=== PATIENT | female | born 1930 | race African-American/Black ===

== ENCOUNTER 2016-08-15 06:36 | Inpatient (IN) | payer MEDICARE, MEDICAID ==
[~2016-08-15] VITALS: Ht 167.6 cm; Wt 102.1 kg
[2016-08-15] VITALS (7 sets, daily range): BP systolic 158–183; BP diastolic 85–108
[~2016-08-15 06:36] MED LIST: BACTRIM-DS1 EA ORAL; CATAPRES0.1 MG ORAL; CEPHALEXIN500 MG ORAL; CIPROFLOXACIN500 M2 ORAL; CORGARD40 MG ORAL; DOXYCYCLINE MO100 MG ORAL; DULCOLAX10 MG RC; ECOTRIN81 MG ORAL; FERROUS SULFAT325 MG ORAL; FLEET ENEMA133 ML RECTAL; GENTAMICIN IM; HYDRALAZINE HCL25 M1 ORAL; HYDRALAZINE HCL50 MG ORAL; HYDROCHLOROTH12.5 M2 ORAL; LEVAQUIN500 MG ORAL; LEVEMIR FL100 UNIT/1 SUBQ; MILK OF MA2400 MG/10 ORAL; MIRALAX17 GM ORAL; NORVASC5 MG ORAL; NOVOLOG100 UNITS1 SUBQ; ROCEPHIN 11 GM/50 ML IVPB; TYLENOL650 MG/20. ORAL; VANCOMYCIN750 MG IVPB
[2016-08-15 07:34] LABS: ALANINE AMINOTRANSFERASE 7 U/L (3-33); ALBUMIN/GLOBULIN RATIO 0.6 (1.0-2.7); ANION GAP 14 (5-15); ASPARTATE AMINO TRANSFERASE 12 U/L (5-40); CALCIUM 8.9 mg/dL (8.6-10.2); CARBON DIOXIDE 30 mEQ/L (20-30); CHLORIDE 93 mEQ/L (98-107); CREATININE 0.9 mg/dL (0.5-0.9); HEMOLYSIS 0; POTASSIUM 2.9 mEQ/L (3.4-4.9); SODIUM 137 mEQ/L (135-145); TOTAL PROTEIN 8.7 g/dL (6.6-8.7); TROPONIN I < 0.30 ng/mL (<=0.30)
[2016-08-15 07:40] LABS: BASOPHILS % (AUTO) 0.6 % (0.0-2.0); LYMPHOCYTES % (AUTO) 18.8 % (20.0-45.0); MEAN CORPUSCULAR HEMOGLOBIN 24.5 PG (27.0-31.0); MEAN CORPUSCULAR HGB CONC 30.3 G/DL (32.0-36.0); MEAN CORPUSCULAR VOLUME 81 FL (80-99); MEAN PLATELET VOLUME 5.7 FL (6.5-10.1); MONOCYTES % (AUTO) 7.3 % (1.0-10.0); NEUTROPHILS % (AUTO) 72.2 % (45.0-75.0); PLATELET COUNT 337 K/UL (150-450); RED BLOOD COUNT 4.93 M/UL (4.20-5.40); RED CELL DISTRIBUTION WIDTH 16.1 % (11.6-14.8); WHITE BLOOD COUNT 7.7 K/UL (4.8-10.8)
[2016-08-15 07:45] LABS: CKMB < 1.5 ng/mL (< 3.8)
[2016-08-15 07:46] LABS: APPEARANCE,URINE SLIGHTLY CLOUDY; KETONES,URINE 1+ (NEGATIVE); LEUKOCYTE ESTERASE ,URINE 3+ (NEGATIVE); NITRITE,URINE NEGATIVE (NEGATIVE); PH,URINE 6 (4.5-8.0); PROTEIN,URINE 2+ (NEGATIVE); UROBILINOGEN,URINE 1 MG/DL (0.0-1.0)
[2016-08-15 08:15] LABS: BACTERIA,URINE MANY /HPF; SQUAMOUS EPITHELIAL CELL,UR MANY /LPF (NONE/OCC); WBC,URINE TNTC /HPF (0 - 2)
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
[2016-08-15] MEDS ORDERED: cefTRIAXone 1 GM in NS 55 ML IVPB ONE (09:30)
[2016-08-15] MEDS ORDERED: cefTRIAXone 1 GM in NS 110 ML IVPB SCH (10:00)
--- NOTE | 2016-08-15 10:17 | Emergency Room Report ---
History of Present Illness General Chief Complaint: Edema Source: Patient Present Illness HPI Patient is a 86-year-old female brought in by ambulance from [facility]. The patient was noted to have increased right-sided facial swelling. The patient was noted to have been in a [facility]. History is markedly limited by patient's mental status. Patient had gradual onset of symptoms per [facility] records. Allergies: Coded Allergies: No Known Allergies (Unverified , 04/03/13) Patient History Now: No Reviewed Nursing Documentation: PMH: Agreed, PSxH: Agreed Nursing Documentation-PMH Hx Cardiac Problems: Yes - HF, anemia, cerebral neurysm Hx Hypertension: Yes - Hemiplegia, Hemiparesis Hx Asthma: No Hx COPD: No Hx Diabetes: Yes Hx Cancer: No Hx Gastrointestinal Problems: No Hx Dialysis: No History Of Psychiatric Problem: Yes - dementia Hx Neurological Problems: Yes Hx Cerebrovascular Accident: Yes Hx Dementia: Yes Hx Parkinson's Disease: No Hx Seizures: No Hx Spinal Cord Injury: No Hx Head Trauma: No Hx Traumatic Brain Injury: No Hx Weakness: Yes - BLE Hx Fatigue: Yes Hx Neurologic Surgery: Yes - s/p brain surgery (aneurysm) Review of Systems All Other Systems: limited - by mental status Physical Exam Vital Signs Date Time Temp Pulse Resp B/P Pulse Ox O2 Delivery O2 Flow Rate FiO2 08/15/16 06:37 101 18 160/81 98 Room Air 08/15/16 07:13 98.4 Sp02 EP Interpretation: reviewed, normal General Appearance: no apparent distress, alert, mild distress, other - poor alertness, Eyes open, verbal Head: atraumatic ENT: hearing grossly normal, normal voice, other - soft tissue swelling to right cheek area Neck: normal inspection, full range of motion, supple, no bony tend Respiratory: normal inspection, lungs clear, normal breath sounds, no respiratory distress, no retraction, no wheezing Cardiovascular #1: regular rate, rhythm, no edema Gastrointestinal: normal inspection, normal bowel sounds, non tender, soft, no guarding, no hernia Genitourinary: no CVA tenderness Musculoskeletal: normal inspection, back normal, normal range of motion Neurologic: normal inspection, alert, responsive Psychiatric: mood/affect normal Skin: normal inspection, normal color, no rash Medical Decision Making Diagnostic Impression: Primary Impression: UTI (urinary tract infection) Additional Impressions: Dental infection ams QT prolongation ER Course Patient is a 86-year-old female presented after increased generalized weakness and facial swelling. Differential diagnosis included was not limited to abscess , sepsis, cellulitis, and others.Because of complexity of patient's case laboratory testing and imaging studies were ordered. CT imaging of the facial bones read by radiology showed soft tissue swelling near the right upper molars without evident abscess. Patient was given IV fluids and IV antibiotics. The patient was noted to have evidence of a urinary tract infection on laboratory testing. Dr. Carias was contacted for inpatient management due to complexity of medical condition. Labs Test 08/15/16 07:05 08/15/16 07:25 White Blood Count 7.7 K/UL (4.8-10.8) Red Blood Count 4.93 M/UL (4.20-5.40) Hemoglobin 12.1 G/DL (12.0-16.0) Hematocrit 39.9 % (37.0-47.0) Mean Corpuscular Volume 81 FL (80-99) Mean Corpuscular Hemoglobin 24.5 PG (27.0-31.0) Mean Corpuscular Hemoglobin Concent 30.3 G/DL (32.0-36.0) Red Cell Distribution Width 16.1 % (11.6-14.8) Platelet Count 337 K/UL (150-450) Mean Platelet Volume 5.7 FL (6.5-10.1) Neutrophils (%) (Auto) 72.2 % (45.0-75.0) Lymphocytes (%) (Auto) 18.8 % (20.0-45.0) Monocytes (%) (Auto) 7.3 % (1.0-10.0) Eosinophils (%) (Auto) 1.0 % (0.0-3.0) Basophils (%) (Auto) 0.6 % (0.0-2.0) Sodium Level 137 mEQ/L (135-145) Potassium Level 2.9 mEQ/L (3.4-4.9) Chloride Level 93 mEQ/L (98-107) Carbon Dioxide Level 30 mEQ/L (20-30) Anion Gap 14 (5-15) Blood Urea Nitrogen 11 mg/dL (7-23) Creatinine 0.9 mg/dL (0.5-0.9) Estimat Glomerular Filtration Rate mL/min (>60) Glucose Level 147 mg/dL (74-106) Lactic Acid Level 0.70 mmol/L (0.66-2.22) Calcium Level 8.9 mg/dL (8.6-10.2) Total Bilirubin 0.3 mg/dL (0.0-1.2) Aspartate Amino Transf (AST/SGOT) 12 U/L (5-40) Alanine Aminotransferase (ALT/SGPT) 7 U/L (3-33) Alkaline Phosphatase 91 U/L (35-104) Total Creatine Kinase 91 U/L (26-140) Creatine Kinase MB < 1.5 ng/mL (< 3.8) Creatine Kinase MB Relative Index Troponin I < 0.30 ng/mL (<=0.30) Pro-B-Type Natriuretic Peptide 51 pg/mL (0-450) Total Protein 8.7 g/dL (6.6-8.7) Albumin 3.3 g/dL (3.5-5.2) Globulin 5.4 g/dL Albumin/Globulin Ratio 0.6 (1.0-2.7) Urine Color Yellow Urine Appearance Slightly cloudy Urine pH 6 (4.5-8.0) Urine Specific [place] 1.020 (1.005-1.035) Urine Protein 2+ (NEGATIVE) Urine Glucose (UA) Negative (NEGATIVE) Urine Ketones 1+ (NEGATIVE) Urine Occult Blood 2+ (NEGATIVE) Urine Nitrite Negative (NEGATIVE) Urine Bilirubin Negative (NEGATIVE) Urine Urobilinogen 1 MG/DL (0.0-1.0) Urine Leukocyte Esterase 3+ (NEGATIVE) Urine RBC 5-10 /HPF (0 - 2) Urine WBC Tntc /HPF (0 - 2) Urine Squamous Epithelial Cells Many /LPF (NONE/OCC) Urine Bacteria Many /HPF (NONE) EKG Diagnostic Results Rate: tachycardiac - 101 Rhythm: NSR, other - qt prolongation ST Segments: no acute changes Chest X-Ray Diagnostic Results EP Interpretation: Yes Findings: no consolidation, no effusion, no pneumothorax, no acute cardiopulmonary disease Number of Views: 1 Last Vital Signs Date Time Temp Pulse Resp B/P Pulse Ox O2 Delivery O2 Flow Rate FiO2 08/15/16 10:10 95 18 171/85 99 Room Air 08/15/16 07:13 98.4 Status: unchanged Disposition: ADMITTED INPATIENT Referrals: EMMA CARIAS (PCP) Ryan Saavedra Aug 15, 2016 10:17
[2016-08-15] MEDS ORDERED: INSULIN DETEMIR SUBQ (11:32)
[2016-08-15] MEDS ORDERED: ASPIRIN325 MG ORAL (11:32)
[2016-08-15] MEDS ORDERED: METFORMIN HCL500 M1 ORAL (11:33)
[2016-08-15] MEDS ORDERED: Robitussin DM PO (11:35)
[2016-08-15] MEDS ORDERED: Morphine Sulfate 2mg/ml Inj IVP PRN (12:00)
[2016-08-15] MEDS ORDERED: DuoNeb 0.5-3(2.5)mg/3ml neb HHN PRN (12:00)
[2016-08-15] MEDS ORDERED: Miralax 17gm pkt ORAL PRN (12:00)
[2016-08-15] MEDS ORDERED: Nitroglycerin Subl 0.4mg tab (Bottle Of 25) SL PRN (12:00)
[2016-08-15] MEDS: HydrALAZINE 25mg tab ORAL SCH (13:46)
[2016-08-15] MEDS ORDERED: Vancomycin 1.25 GM in D5W 275 ML IVPB SCH (14:00)
--- NOTE | 2016-08-15 14:57 | History and Physical ---
History of Present Illness General Date patient seen: Aug 15, 2016 Reason for Hospitalization: Edema Present Illness HPI 86-year-old female with hx of CVA, DM, HTN, [facility] resident brought in by ambulance for increased right-sided facial swelling. History is markedly limited by patient's mental status. Patient had gradual onset of symptoms per [facility] records. A facial CT in ER showed that pt had peridental abscess. She is admitted for further management. Allergies: Coded Allergies: No Known Allergies (Unverified , 04/03/13) Medication History Scheduled Amlodipine Besylate (Norvasc), 5 MG ORAL DAILY, (Reported) Aspirin (Ecotrin), 81 MG ORAL DAILY Aspirin* (Aspirin*), 325 MG ORAL DAILY, (Reported) Ceftriaxone Sod (Ceftriaxone 1 gm-D5w Bag), 1 GM IVPB DAILY Cephalexin* (Keflex*), 500 MG ORAL EVERY 12 HOURS Ciprofloxacin Hcl* (Ciprofloxacin Hcl*), 500 MG ORAL Q12H Ferrous Sulfate* (Ferrous Sulfate*), 325 MG ORAL DAILY, (Reported) Gentamicin/Sod Chl (Iso Gentamicin 120 mg/100 ml), 120 MG IM TID Hydralazine Hcl* (Hydralazine Hcl*), 25 MG ORAL DAILY, (Reported) Insulin Aspart (Novolog Flexpen), 0 UNITS SUBQ BEFORE MEALS AND HS Insulin Detemir (Levemir Flexpen), 6 UNITS SUBQ Q24H Levofloxacin* (Levaquin*), 500 MG ORAL DAILY Metformin Hcl* (Metformin Hcl*), 500 MG ORAL TID, (Reported) Trimethoprim/Sulfamethoxazole (Bactrim Ds Tablet), 2 EA ORAL EVERY 12 HOURS Vancomycin Hcl (Vancomycin), 1,500 MG IVPB DAILY [Insuilin Detemir pen], 15 UNITS SUBQ QHS, (Reported) Scheduled PRN Acetaminophen (Acetaminophen), 650 MG ORAL Q6H PRN for For Pain, (Reported) Bisacodyl (Dulcolax), 10 MG RC DAILY PRN for Constipation, (Reported) Clonidine Hcl* (Catapres*), 0.1 MG ORAL EVERY 6 HOURS PRN for For High Blood Pressure, (Reported) Magnesium Hydroxide* (Milk Of Magnesia*), 30 ML ORAL DAILY PRN for Constipation, (Reported) Na Phos,M-B/Na Phos,Di-Ba* (Fleet Enema*), 133 ML RECTAL every 3 days PRN for Constipation, (Reported) Polyethylene Glycol* (Miralax*), 17 GM ORAL HSPRN PRN for Constipation [Robitussin DM], 5 ML PO Q6HR PRN for For Cough, (Reported) Patient History Healthcare decision maker Resuscitation status Full Code Advanced Directive on File Past Medical/Surgical History Past Medical/Surgical History: (1) DM (diabetes mellitus screen) (2) HTN (hypertension) (3) halfway resident (4) DM (diabetes mellitus) Review of Systems All Other Systems: negative except mentioned in HPI Physical Exam Lines, tubes and drains: peripheral HEENT: normocephalic, atraumatic, other - facial swelling Neck: non-tender Respiratory/Chest: chest wall non-tender Cardiovascular/Chest: normal peripheral pulses, normal rate Abdomen: normal bowel sounds, non tender Genitourinary/Rectal: normal genital exam Extremities: normal range of motion Neurologic: technical specialist cytology II-XII grossly normal Last 24 Hour Vital Signs Date Time Temp Pulse Resp B/P Pulse Ox O2 Delivery O2 Flow Rate FiO2 08/15/16 13:46 183/99 08/15/16 13:37 98.2 105 18 183/99 97 Room Air 08/15/16 12:45 98.4 97 18 178/85 99 Room Air 08/15/16 12:10 97 18 171/88 99 Room Air 08/15/16 10:10 95 18 171/85 99 Room Air 08/15/16 08:45 96 18 176/90 99 Room Air 08/15/16 07:14 98 22 Room Air 08/15/16 07:13 98.4 99 22 171/88 99 Room Air 08/15/16 06:37 101 18 160/81 98 Room Air Laboratory Tests Test 08/15/16 07:05 08/15/16 07:25 White Blood Count 7.7 K/UL (4.8-10.8) Red Blood Count 4.93 M/UL (4.20-5.40) Hemoglobin 12.1 G/DL (12.0-16.0) Hematocrit 39.9 % (37.0-47.0) Mean Corpuscular Volume 81 FL (80-99) Mean Corpuscular Hemoglobin 24.5 PG (27.0-31.0) L Mean Corpuscular Hemoglobin Concent 30.3 G/DL (32.0-36.0) L Red Cell Distribution Width 16.1 % (11.6-14.8) H Platelet Count 337 K/UL (150-450) Mean Platelet Volume 5.7 FL (6.5-10.1) L Neutrophils (%) (Auto) 72.2 % (45.0-75.0) Lymphocytes (%) (Auto) 18.8 % (20.0-45.0) L Monocytes (%) (Auto) 7.3 % (1.0-10.0) Eosinophils (%) (Auto) 1.0 % (0.0-3.0) Basophils (%) (Auto) 0.6 % (0.0-2.0) Sodium Level 137 mEQ/L (135-145) Potassium Level 2.9 mEQ/L (3.4-4.9) L Chloride Level 93 mEQ/L (98-107) L Carbon Dioxide Level 30 mEQ/L (20-30) Anion Gap 14 (5-15) Blood Urea Nitrogen 11 mg/dL (7-23) Creatinine 0.9 mg/dL (0.5-0.9) Estimat Glomerular Filtration Rate mL/min (>60) Glucose Level 147 mg/dL (74-106) H Lactic Acid Level 0.70 mmol/L (0.66-2.22) Calcium Level 8.9 mg/dL (8.6-10.2) Total Bilirubin 0.3 mg/dL (0.0-1.2) Aspartate Amino Transf (AST/SGOT) 12 U/L (5-40) Alanine Aminotransferase (ALT/SGPT) 7 U/L (3-33) Alkaline Phosphatase 91 U/L (35-104) Total Creatine Kinase 91 U/L (26-140) Creatine Kinase MB < 1.5 ng/mL (< 3.8) Creatine Kinase MB Relative Index Troponin I < 0.30 ng/mL (<=0.30) Pro-B-Type Natriuretic Peptide 51 pg/mL (0-450) Total Protein 8.7 g/dL (6.6-8.7) Albumin 3.3 g/dL (3.5-5.2) L Globulin 5.4 g/dL Albumin/Globulin Ratio 0.6 (1.0-2.7) L Urine Color Yellow Urine Appearance Slightly cloudy Urine pH 6 (4.5-8.0) Urine Specific Pfeifer 1.020 (1.005-1.035) Urine Protein 2+ (NEGATIVE) H Urine Glucose (UA) Negative (NEGATIVE) Urine Ketones 1+ (NEGATIVE) H Urine Occult Blood 2+ (NEGATIVE) H Urine Nitrite Negative (NEGATIVE) Urine Bilirubin Negative (NEGATIVE) Urine Urobilinogen 1 MG/DL (0.0-1.0) H Urine Leukocyte Esterase 3+ (NEGATIVE) H Urine RBC 5-10 /HPF (0 - 2) H Urine WBC Tntc /HPF (0 - 2) H Urine Squamous Epithelial Cells Many /LPF (NONE/OCC) H Urine Bacteria Many /HPF (NONE) H Height (Feet): 5 Height (Inches): 6.00 Weight (Pounds): 225 Medications Current Medications Medications (Trade) Dose Ordered Sig/[place] Route PRN Reason Start Time Stop Time Status Last Admin Dose Admin Acetaminophen (Tylenol) 650 mg Q4H PRN ORAL fever 08/15/16 12:00 09/14/16 11:59 Albuterol/ Ipratropium 3 ml 3 ml Q4H PRN HHN Shortness of Breath 08/15/16 12:00 08/20/16 11:59 Amlodipine Besylate (Norvasc) 5 mg DAILY ORAL 08/16/16 09:00 09/15/16 08:59 Aspirin (Ecotrin) 81 mg DAILY ORAL 08/16/16 09:00 09/15/16 08:59 Cefepime HCl 2 gm/ Dextrose 100 ml @ 100 mls/hr Q24H IV 08/15/16 14:00 08/22/16 13:59 Clonidine HCl (Catapres) 0.1 mg Q4H PRN ORAL sbp more than 170 08/15/16 14:30 09/14/16 14:29 UNV Dextrose (Dextrose 50%) STAT PRN IV Hypoglycemia 08/15/16 12:00 09/14/16 11:59 Heparin Sodium (Porcine) (Heparin 5000 units/ml) 5,000 units EVERY 12 HOURS SUBQ 08/15/16 21:00 09/14/16 20:59 Hydralazine HCl 25 mg 25 mg DAILY ORAL 08/15/16 14:15 09/14/16 14:14 08/15/16 13:46 Insulin Aspart (NovoLOG) BEFORE MEALS AND HS SUBQ 08/15/16 16:30 09/14/16 16:29 Morphine Sulfate (Morphine Sulfate) 2 mg Q4H PRN IVP Moderate Pain (Pain Scale 4-6) 08/15/16 12:00 08/22/16 11:59 08/15/16 13:48 Nitroglycerin (Ntg) 0.4 mg Q5MIN X 3 DOSES PRN SL Prn Chest Pain 08/15/16 12:00 09/14/16 11:59 Ondansetron HCl (Zofran) 4 mg Q6H PRN IVP Nausea & Vomiting 08/15/16 12:00 09/14/16 11:59 Polyethylene Glycol (Miralax) 17 gm DAILYPRN PRN ORAL Constipation 08/15/16 12:00 09/14/16 11:59 Potassium Chloride (KCl 10% 40mEq Oral solution) 40 meq Q4H ORAL 08/15/16 14:30 08/15/16 22:31 UNV Sodium Chloride (Sodium Chloride 1000ml bag) 1,000 ml @ 100 mls/hr Q10H IVLG 08/15/16 13:00 09/14/16 12:59 08/15/16 13:31 Temazepam (Restoril) 15 mg HSPRN PRN ORAL Insomnia 08/15/16 21:00 08/22/16 20:59 Vancomycin HCl/ Dextrose (Vancomycin/D5W 250ml) 275 ml @ 183.3 mls/ hr Q24H IVPB 08/15/16 14:00 08/20/16 13:59 Assessment/Plan Problem List: (1) Sepsis ICD Codes: A41.9 - Sepsis, unspecified organism SNOMED: 17098005 (2) Dental infection ICD Codes: K04.7 - Periapical abscess without sinus SNOMED: 695215722 (3) DM (diabetes mellitus) ICD Codes: E11.9 - DM (diabetes mellitus) SNOMED: 96714808 Qualifiers: (4) Cellulitis ICD Codes: L03.90 - Cellulitis, unspecified SNOMED: 996465404 Qualifiers: Qualified Codes: L03.211 - Cellulitis of face (5) halfway resident ICD Codes: Z59.3 - Problems related to living in residential institution SNOMED: 777183414 (6) HTN (hypertension) ICD Codes: I10 - Essential (primary) hypertension SNOMED: 33332312 Qualifiers: Qualified Codes: I10 - Essential (primary) hypertension Assessment/Plan iv antibiotics dental consult. None available at [facility] [place] conn culture sliding scale diabetic diet pain control dvt prophylaixs EMMA BALL Aug 15, 2016 14:57
[2016-08-15 15:36] LABS: ALANINE AMINOTRANSFERASE 8 U/L (3-33); ALBUMIN/GLOBULIN RATIO 0.5 (1.0-2.7); ANION GAP 19 (5-15); ASPARTATE AMINO TRANSFERASE 12 U/L (5-40); CALCIUM 9.1 mg/dL (8.6-10.2); CARBON DIOXIDE 24 mEQ/L (20-30); CHLORIDE 92 mEQ/L (98-107); CREATININE 0.8 mg/dL (0.5-0.9); HEMOLYSIS 10; MAGNESIUM 1.6 mg/dL (1.7-2.5); PHOSPHORUS 2.6 mg/dL (2.5-4.8); SODIUM 135 mEQ/L (135-145); TOTAL PROTEIN 9.2 g/dL (6.6-8.7); URIC ACID 8.5 mg/dL (3.0-7.5)
--- NOTE | 2016-08-15 16:38 | Consultation ---
Consult Note Consult Note ID CONSULT: Lisa# [id number] Assessment/Plan ASSESSMENT: 86 y/o female with: // Right maxillary molar infection - CT: Findings suggestive of mild dental/periodontal disease involving the right upper second molar with mild overlying soft tissue prominence. No evidence of associated abscess. // Probable recurrent UTI - UCx pending, h/o E.coli // h/o CONS, ACB bacteremias r/o recurrence - BCx pending // h/o right heel DFU / MSSA cellulitis 09/2014, no evidence of recurrence // Afebrile without leukocytosis // DM2 // Dementia // NH resident // h/o MRSA, VRE colonization // NKDA // Full Code PLAN: - continue IV vancomycin d# , change cefepime to zosyn to include anaerobic coverage. Ok to complete course with PO augmentin once clinically improved - f/u cultures - monitor CBC, temperatures - monitor BMP Thanks! Will follow MAGO DUNBAR Aug 15, 2016 16:38
[2016-08-15] MEDS: KCl 10% 40mEq/30ml liquid ORAL SCH ×2 (17:00→21:56)
[2016-08-15] MEDS: NovoLOG Insulin Flexpen SUBQ SCH ×2 (17:01→21:53)
[2016-08-15] MEDS: Vancomycin 1.5 GM in D5W 325 ML IVPB SCH (19:01)
--- NOTE | 2016-08-15 21:25 | Cardiology Report ---
APPROVED REPORT EKG Measurement Heart [id number] Sinus tachycardia Otherwise normal ECG
--- NOTE | 2016-08-15 21:28 | Consultation ---
DATE OF CONSULTATION: 08/15/2016 INFECTIOUS DISEASE CONSULTATION CONSULTING PHYSICIAN: Willis Hernandez M.D. REFERRING PHYSICIAN: Selin Carias M.D. REASON FOR CONSULTATION: Dental infection. HISTORY OF PRESENT ILLNESS: This is an 86-year-old female, [facility] resident, admitted on 08/15/2016 with right-sided facial swelling. A CT is suggestive of mild dental/periodontal disease involving the right upper second molar with mild overlying soft tissue prominence. No abscess. She is afebrile without leukocytosis. Cultures are pending. She has been started on empiric vancomycin and cefepime. ID now consulted to assist in management. PAST MEDICAL HISTORY: 1. Hypertension. 2. Stroke. 3. Diabetes. 4. History of recurrent UTIs. 5. History of recurrent bacteremias. 6. Dementia. ALLERGIES: No known drug allergies. MEDICATIONS: 1. Vancomycin. 2. Cefepime. 3. Subcutaneous heparin. 4. Aspirin. 5. Norvasc. 6. Hydralazine. FAMILY HISTORY: Noncontributory. SOCIAL HISTORY: The patient is a resident of a [facility]. No active tobacco, alcohol, or illicit drug abuse. REVIEW OF SYSTEMS: Unable to obtain. PHYSICAL EXAMINATION: VITAL SIGNS: Maximum temperature 98.4 degrees, blood pressure 155/88, heart rate 100, respiratory rate 20, and saturating 97% on room air. GENERAL: No apparent distress. Nontoxic appearing. HEENT: Left-sided facial swelling will not open mouth for examination. CARDIOVASCULAR: Regular rate and rhythm. No murmurs. PULMONARY: Clear to auscultation bilaterally. ABDOMEN: Bowel sounds present. Soft, nondistended, and nontender. EXTREMITIES: Edema. LABORATORY DATA: White blood cell count 7.7, hemoglobin 12.1, and platelets 337,000. Sodium 135, potassium 3, chloride 92, bicarbonate 24, BUN 9, and creatinine 0.8. Lactic acid is 0.7. Liver function tests within normal limits. MICROBIOLOGY: 1. On 08/15/2016, blood culture pending. 2. On 08/15/2016, urine culture pending with positive urinalysis. IMAGIN. On 08/15/2016, chest x-ray pending. 2. On 08/15/2016, renal ultrasound pending. ASSESSMENT: 1. Right maxillary molar infection. CT as above. 2. Probable recurrent urinary tract infection. Urine culture is pending. She has a history of growth of Escherichia coli. 3. Afebrile without leukocytosis. 4. Diabetes. 5. Dementia. 6. shelter resident. 7. 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 8. No known drug allergies. 9. Full Code. PLAN: 1. Continue IV vancomycin day #1 of 10 and change cefepime to Zosyn to include anaerobic coverage. Okay to complete course with oral Augmentin once clinically improved. 2. Follow up cultures. 3. Monitor CBC and temperatures. 4. Monitor BMP. Thank you. We will follow. Willis Hernandez M.D. DR: BERNADINE JOB#: [id number] CC: Selin Carias M.D.; Fax#: [phone] Chilel M.D; Fax#: [phone]
[2016-08-15] MEDS: Piperacillin/Tazobactam 3.375 GM in D5W 110 ML IVPB SCH (21:57)
[2016-08-15] MEDS: Heparin 5000 units/ml inj SUBQ SCH (21:57)
[2016-08-16] VITALS: BP 176/96
[2016-08-16] MEDS: KCl 10% 40mEq/30ml liquid ORAL SCH (00:27)
[2016-08-16 04:00] VITALS: BP 184/107
[2016-08-16] MEDS: Piperacillin/Tazobactam 3.375 GM in D5W 110 ML IVPB SCH ×3 (05:17→21:16)
[2016-08-16] MEDS: NovoLOG Insulin Flexpen SUBQ SCH ×4 (05:37→20:48)
[2016-08-16 07:40] LABS: BASOPHILS % (AUTO) 1.1 % (0.0-2.0); EOSINOPHILS % (AUTO) 1.3 % (0.0-3.0); LYMPHOCYTES % (AUTO) 12.5 % (20.0-45.0); MEAN CORPUSCULAR HEMOGLOBIN 24.7 PG (27.0-31.0); MEAN CORPUSCULAR HGB CONC 30.9 G/DL (32.0-36.0); MEAN CORPUSCULAR VOLUME 80 FL (80-99); MEAN PLATELET VOLUME 5.5 FL (6.5-10.1); MONOCYTES % (AUTO) 9.5 % (1.0-10.0); NEUTROPHILS % (AUTO) 75.6 % (45.0-75.0); PLATELET COUNT 315 K/UL (150-450); RED BLOOD COUNT 4.53 M/UL (4.20-5.40); RED CELL DISTRIBUTION WIDTH 15.4 % (11.6-14.8); WHITE BLOOD COUNT 8.1 K/UL (4.8-10.8)
[2016-08-16 07:50] LABS: ALANINE AMINOTRANSFERASE 7 U/L (3-33); ALBUMIN/GLOBULIN RATIO 0.5 (1.0-2.7); ANION GAP 13 (5-15); ASPARTATE AMINO TRANSFERASE 11 U/L (5-40); CALCIUM 8.7 mg/dL (8.6-10.2); CARBON DIOXIDE 27 mEQ/L (20-30); CHLORIDE 97 mEQ/L (98-107); CREATININE 0.8 mg/dL (0.5-0.9); HEMOLYSIS 2; POTASSIUM 3.6 mEQ/L (3.4-4.9); SODIUM 137 mEQ/L (135-145); TOTAL PROTEIN 7.9 g/dL (6.6-8.7)
[2016-08-16 08:14] VITALS: BP 160/91
[2016-08-16] MEDS: HydrALAZINE 25mg tab ORAL SCH (08:41)
[2016-08-16] MEDS: Aspirin EC 81mg tab ORAL SCH (08:41)
[2016-08-16] MEDS: Heparin 5000 units/ml inj SUBQ SCH ×2 (08:42→20:47)
[2016-08-16 12:10] VITALS: BP 164/85
--- NOTE | 2016-08-16 14:58 | Pulmonology Progress Note ---
Assessment/Plan Problems: (1) Sepsis (2) Dental infection (3) DM (diabetes mellitus) (4) Cellulitis (5) [facility] resident (6) HTN (hypertension) Assessment/Plan continue antibiotics check cultures check cultures dvt prophylaxi clinically improving Subjective ROS Limited/Unobtainable: Yes Interval Events: awake, not communicating Constitutional: Reports: no symptoms Allergies: Coded Allergies: No Known Allergies (Unverified , 04/03/13) Objective Last 24 Hour Vital Signs Date Time Temp Pulse Resp B/P Pulse Ox O2 Delivery O2 Flow Rate FiO2 08/16/16 12:10 97.6 97 20 164/85 95 Room Air 08/16/16 08:41 160/91 08/16/16 08:41 90 160/91 08/16/16 08:14 97.7 90 19 160/91 95 Room Air 08/16/16 04:09 176/96 08/16/16 04:00 98.1 101 20 184/107 98 Room Air 08/16/16 00:00 98.1 104 20 176/96 99 Room Air 08/15/16 19:00 98.2 100 20 159/108 98 Room Air 08/15/16 16:00 97.5 100 20 158/88 97 Room Air Intake and Output 08/15/16 08/16/16 19:00 07:00 Intake Total 310 ml 745 ml Balance 310 ml 745 ml Intake Oral 200 ml 160 ml IV Total 110 ml 585 ml # Voids 2 6 # Bowel Movements 1 General Appearance: WD/WN HEENT: normocephalic, anicteric Respiratory/Chest: chest wall non-tender, lungs clear Cardiovascular: normal peripheral pulses, normal rate Abdomen: normal bowel sounds, soft, non tender 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 normal Lymphatic: no neck adenopathy Microbiology Date/Time Source Procedure Growth Status 08/15/16 07:25 Urine,Clean Catch Urine Culture - Preliminary NO GROWTH Resulted Laboratory Tests 08/15/16 15:00: Sodium Level 135, Potassium Level 3.0L, Chloride Level 92L, Carbon Dioxide Level 24, Anion Gap 19H, Blood Urea Nitrogen 9, Creatinine 0.8, Estimat Glomerular Filtration Rate , Glucose Level 179H, Plasma/Serum Osmolality [ Pending], Uric Acid 8.5H, Calcium Level 9.1, Phosphorus Level 2.6, Magnesium Level 1.6L, Total Bilirubin 0.2, Aspartate Amino Transf (AST/SGOT) 12, Alanine Aminotransferase (ALT/SGPT) 8, Alkaline Phosphatase 96, Total Creatine Kinase 91 , Total Protein 9.2H, Albumin 3.1L, Globulin 6.1, Albumin/Globulin Ratio 0.5L, Free Thyroxine 1.09 08/16/16 06:40: Sodium Level 137, Potassium Level 3.6, Chloride Level 97L, Carbon Dioxide Level 27, Anion Gap 13, Blood Urea Nitrogen 8, Creatinine 0.8, Estimat Glomerular Filtration Rate , Glucose Level 178H, Calcium Level 8.7, Total Bilirubin 0.3, Aspartate Amino Transf (AST/SGOT) 11, Alanine Aminotransferase (ALT/SGPT) 7, Alkaline Phosphatase 87, Total Protein 7.9, Albumin 2.9L, Globulin 5.0, Albumin/ Globulin Ratio 0.5L, White Blood Count 8.1, Red Blood Count 4.53, Hemoglobin 11.2L, Hematocrit 36.2L, Mean Corpuscular Volume 80, Mean Corpuscular Hemoglobin 24.7L, Mean Corpuscular Hemoglobin Concent 30.9L, Red Cell Distribution Width 15.4H, Platelet Count 315, Mean Platelet Volume 5.5L, Neutrophils (%) (Auto) 75.6H, Lymphocytes (%) (Auto) 12.5L, Monocytes (%) (Auto ) 9.5, Eosinophils (%) (Auto) 1.3, Basophils (%) (Auto) 1.1 Current Medications Medications (Trade) Dose Ordered Sig/Samaria Route PRN Reason Start Time Stop Time Status Last Admin Dose Admin Acetaminophen (Tylenol) 650 mg Q4H PRN ORAL fever 08/15/16 12:00 09/14/16 11:59 Albuterol/ Ipratropium (DuoNeb 0.5-3(2.5)mg/3ml) 3 ml Q4H PRN HHN Shortness of Breath 08/15/16 12:00 08/20/16 11:59 Amlodipine Besylate (Norvasc) 5 mg DAILY ORAL 08/16/16 09:00 09/15/16 08:59 08/16/16 08:41 Aspirin (Ecotrin) 81 mg DAILY ORAL 08/16/16 09:00 09/15/16 08:59 08/16/16 08:41 Clonidine HCl 0.1 mg 0.1 mg Q4H PRN ORAL sbp more than 170 08/15/16 14:30 09/14/16 14:29 08/16/16 04:09 Dextrose (Dextrose 50%) STAT PRN IV Hypoglycemia 08/15/16 12:00 09/14/16 11:59 Heparin Sodium (Porcine) (Heparin 5000 units/ml) 5,000 units EVERY 12 HOURS SUBQ 08/15/16 21:00 09/14/16 20:59 08/16/16 08:42 Hydralazine HCl (Apresoline) 25 mg DAILY ORAL 08/15/16 14:15 09/14/16 14:14 08/16/16 08:41 Insulin Aspart (NovoLOG) BEFORE MEALS AND HS SUBQ 08/15/16 16:30 09/14/16 16:29 08/16/16 13:18 Morphine Sulfate (Morphine Sulfate) 2 mg Q4H PRN IVP Moderate Pain (Pain Scale 4-6) 08/15/16 12:00 08/22/16 11:59 08/15/16 13:48 Nitroglycerin (Ntg) 0.4 mg Q5MIN X 3 DOSES PRN SL Prn Chest Pain 08/15/16 12:00 09/14/16 11:59 Ondansetron HCl (Zofran) 4 mg Q6H PRN IVP Nausea & Vomiting 08/15/16 12:00 09/14/16 11:59 Piperacillin Sod/ Tazobactam Sod 3.375 gm/Dextrose 110 ml @ 27.5 mls/hr Q8HR IVPB 08/15/16 22:00 08/22/16 21:59 08/16/16 13:17 Polyethylene Glycol (Miralax) 17 gm DAILYPRN PRN ORAL Constipation 08/15/16 12:00 09/14/16 11:59 Sodium Chloride (Sodium Chloride 1000ml bag) 1,000 ml @ 75 mls/hr [id number] IVLG 08/15/16 20:00 09/14/16 19:59 08/16/16 08:43 Temazepam (Restoril) 15 mg HSPRN PRN ORAL Insomnia 08/15/16 21:00 08/22/16 20:59 Vancomycin HCl 1.5 gm/Dextrose 325 ml @ 162.5 mls/ hr Q24H IVPB 08/15/16 18:00 08/20/16 17:59 08/15/16 19:01 EMMA BALL Aug 16, 2016 14:58
--- NOTE | 2016-08-16 15:59 | Diagnostic Imaging Report ---
Indications: Shortness of breath Technique: Portable AP chest Findings: Comparison: 05/19/2015 Inspiratory effort remains suboptimal. Linear density has developed in the left lung base. Visualized portions of right lung, bilateral pleural surfaces remain clear. Heart size, pulmonary vasculature remain within normal limits. Mild elongation of thoracic aorta unchanged. IMPRESSION: Development of subsegmental atelectasis left lung base. No other evidence of acute cardiopulmonary disease, limited as described. Upright PA and lateral chest radiographs with better inspiratory effort and optimal technique recommended for more complete evaluation. Probable mild chronic hypertensive change of the thoracic aorta, stable
[2016-08-16 16:00] VITALS: BP 150/90
--- NOTE | 2016-08-16 16:01 | Diagnostic Imaging Report ---
Indication:Elevated Bun and Creatinine. Technique: Grayscale and duplex Doppler imaging of the kidneys performed. Comparison: None Findings: There is a small cyst in the right kidney measuring approximately 9 mm. The right kidney between 9 and 10 CM in length. Left kidney between 10 and 11 CM in length. IVC and bladder appear unremarkable. Impression: Small right renal cyst. Negative exam otherwise.
--- NOTE | 2016-08-16 16:03 | Infectious Diseases Prog Note ---
Assessment/Plan Assessment/Plan ASSESSMENT: 86 y/o female with: // Right maxillary molar infection - CT: Findings suggestive of mild dental/periodontal disease involving the right upper second molar with mild overlying soft tissue prominence. No evidence of associated abscess. // Probable recurrent UTI - UCx NGTD, h/o E.coli // h/o CONS, ACB bacteremias r/o recurrence - BCx pending // h/o right heel DFU / MSSA cellulitis 09/2014, no evidence of recurrence // Afebrile without leukocytosis // DM2 // Dementia // NH resident // h/o MRSA, VRE colonization // NKDA // Full Code PLAN: - continue IV vancomycin, zosyn d# . Ok to complete course with PO augmentin once clinically improved - f/u cultures - monitor CBC, temperatures - monitor BMP Subjective Allergies: Coded Allergies: No Known Allergies (Unverified , 04/03/13) Subjective remains afebrile. no new complaint Objective Vital Signs Last 24 Hour Vital Signs Date Time Temp Pulse Resp B/P Pulse Ox O2 Delivery O2 Flow Rate FiO2 08/16/16 12:10 97.6 97 20 164/85 95 Room Air 08/16/16 08:41 160/91 08/16/16 08:41 90 160/91 08/16/16 08:14 97.7 90 19 160/91 95 Room Air 08/16/16 04:09 176/96 08/16/16 04:00 98.1 101 20 184/107 98 Room Air 08/16/16 00:00 98.1 104 20 176/96 99 Room Air 08/15/16 19:00 98.2 100 20 159/108 98 Room Air 08/15/16 16:00 97.5 100 20 158/88 97 Room Air Height (Feet): 5 Height (Inches): 6.00 Weight (Pounds): 225 General Appearance: no acute distress HEENT: other - left facial swelling Respiratory/Chest: no respiratory distress Cardiovascular: normal rate, regular rhythm Abdomen: normal bowel sounds, soft, non tender, non distended Microbiology Date/Time Source Procedure Growth Status 08/15/16 07:25 Urine,Clean Catch Urine Culture - Preliminary NO GROWTH Resulted Laboratory Tests Test 08/16/16 06:40 White Blood Count 8.1 K/UL (4.8-10.8) Red Blood Count 4.53 M/UL (4.20-5.40) Hemoglobin 11.2 G/DL (12.0-16.0) L Hematocrit 36.2 % (37.0-47.0) L Mean Corpuscular Volume 80 FL (80-99) Mean Corpuscular Hemoglobin 24.7 PG (27.0-31.0) L Mean Corpuscular Hemoglobin Concent 30.9 G/DL (32.0-36.0) L Red Cell Distribution Width 15.4 % (11.6-14.8) H Platelet Count 315 K/UL (150-450) Mean Platelet Volume 5.5 FL (6.5-10.1) L Neutrophils (%) (Auto) 75.6 % (45.0-75.0) H Lymphocytes (%) (Auto) 12.5 % (20.0-45.0) L Monocytes (%) (Auto) 9.5 % (1.0-10.0) Eosinophils (%) (Auto) 1.3 % (0.0-3.0) Basophils (%) (Auto) 1.1 % (0.0-2.0) Sodium Level 137 mEQ/L (135-145) Potassium Level 3.6 mEQ/L (3.4-4.9) Chloride Level 97 mEQ/L (98-107) L Carbon Dioxide Level 27 mEQ/L (20-30) Anion Gap 13 (5-15) Blood Urea Nitrogen 8 mg/dL (7-23) Creatinine 0.8 mg/dL (0.5-0.9) Estimat Glomerular Filtration Rate mL/min (>60) Glucose Level 178 mg/dL (74-106) H Calcium Level 8.7 mg/dL (8.6-10.2) Total Bilirubin 0.3 mg/dL (0.0-1.2) Aspartate Amino Transf (AST/SGOT) 11 U/L (5-40) Alanine Aminotransferase (ALT/SGPT) 7 U/L (3-33) Alkaline Phosphatase 87 U/L (35-104) Total Protein 7.9 g/dL (6.6-8.7) Albumin 2.9 g/dL (3.5-5.2) L Globulin 5.0 g/dL Albumin/Globulin Ratio 0.5 (1.0-2.7) L Current Medications Medications (Trade) Dose Ordered Sig/Samaria Route PRN Reason Start Time Stop Time Status Last Admin Dose Admin Acetaminophen (Tylenol) 650 mg Q4H PRN ORAL fever 08/15/16 12:00 09/14/16 11:59 Albuterol/ Ipratropium (DuoNeb 0.5-3(2.5)mg/3ml) 3 ml Q4H PRN HHN Shortness of Breath 08/15/16 12:00 08/20/16 11:59 Amlodipine Besylate (Norvasc) 5 mg DAILY ORAL 08/16/16 09:00 09/15/16 08:59 08/16/16 08:41 Aspirin (Ecotrin) 81 mg DAILY ORAL 08/16/16 09:00 09/15/16 08:59 08/16/16 08:41 Clonidine HCl 0.1 mg 0.1 mg Q4H PRN ORAL sbp more than 170 08/15/16 14:30 09/14/16 14:29 08/16/16 04:09 Dextrose (Dextrose 50%) STAT PRN IV Hypoglycemia 08/15/16 12:00 09/14/16 11:59 Heparin Sodium (Porcine) (Heparin 5000 units/ml) 5,000 units EVERY 12 HOURS SUBQ 08/15/16 21:00 09/14/16 20:59 08/16/16 08:42 Hydralazine HCl (Apresoline) 25 mg DAILY ORAL 08/15/16 14:15 09/14/16 14:14 08/16/16 08:41 Insulin Aspart (NovoLOG) BEFORE MEALS AND HS SUBQ 08/15/16 16:30 09/14/16 16:29 08/16/16 13:18 Morphine Sulfate (Morphine Sulfate) 2 mg Q4H PRN IVP Moderate Pain (Pain Scale 4-6) 08/15/16 12:00 08/22/16 11:59 08/15/16 13:48 Nitroglycerin (Ntg) 0.4 mg Q5MIN X 3 DOSES PRN SL Prn Chest Pain 08/15/16 12:00 09/14/16 11:59 Ondansetron HCl (Zofran) 4 mg Q6H PRN IVP Nausea & Vomiting 08/15/16 12:00 09/14/16 11:59 Piperacillin Sod/ Tazobactam Sod 3.375 gm/Dextrose 110 ml @ 27.5 mls/hr Q8HR IVPB 08/15/16 22:00 08/22/16 21:59 08/16/16 13:17 Polyethylene Glycol (Miralax) 17 gm DAILYPRN PRN ORAL Constipation 08/15/16 12:00 09/14/16 11:59 Sodium Chloride (Sodium Chloride 1000ml bag) 1,000 ml @ 75 mls/hr [id number] IVLG 08/15/16 20:00 09/14/16 19:59 08/16/16 08:43 Temazepam (Restoril) 15 mg HSPRN PRN ORAL Insomnia 08/15/16 21:00 08/22/16 20:59 Vancomycin HCl 1.5 gm/Dextrose 325 ml @ 162.5 mls/ hr Q24H IVPB 08/15/16 18:00 08/20/16 17:59 08/15/16 19:01 MAGO DUNBAR Aug 16, 2016 16:03
[2016-08-16] MEDS: Vancomycin 1.5 GM in D5W 325 ML IVPB SCH (17:47)
[2016-08-16 19:00] VITALS: BP 157/99
[2016-08-17] VITALS: BP 160/98
[2016-08-17 04:00] VITALS: BP 169/105
[2016-08-17] MEDS: Piperacillin/Tazobactam 3.375 GM in D5W 110 ML IVPB SCH ×2 (05:09→13:04)
[2016-08-17] MEDS: NovoLOG Insulin Flexpen SUBQ SCH ×3 (05:37→16:58)
[2016-08-17 06:36] VITALS: BP 159/90
[2016-08-17 08:00] VITALS: BP 147/94
[2016-08-17] MEDS: Aspirin EC 81mg tab ORAL SCH (09:00)
[2016-08-17] MEDS: HydrALAZINE 25mg tab ORAL SCH ×2 (09:00→12:32)
[2016-08-17] MEDS: Heparin 5000 units/ml inj SUBQ SCH (09:00)
[2016-08-17 11:55] VITALS: BP 160/94
[2016-08-17] MEDS ORDERED: AUGMENTIN 875-1 EAC1 ORAL (15:38)
[2016-08-17 16:00] VITALS: BP 102/53
--- NOTE | 2016-08-17 17:06 | Pulmonology Progress Note ---
Assessment/Plan Problems: (1) Sepsis (2) Dental infection (3) DM (diabetes mellitus) (4) Cellulitis (5) custodial resident (6) HTN (hypertension) Assessment/Plan continue antibiotics check cultures check cultures dvt prophylaxi clinically improving dc to care home with oral abx as recommended by ID outpatient dental appointment Subjective ROS Limited/Unobtainable: No Interval Events: improving, no new complains Allergies: Coded Allergies: No Known Allergies (Unverified , 04/03/13) Objective Last 24 Hour Vital Signs Date Time Temp Pulse Resp B/P Pulse Ox O2 Delivery O2 Flow Rate FiO2 08/17/16 16:00 97.3 96 20 102/53 97 Room Air 08/17/16 12:33 87 160/94 08/17/16 12:32 160/94 08/17/16 11:55 97.9 87 21 160/94 99 Room Air 08/17/16 08:00 97.9 90 20 147/94 99 Room Air 08/17/16 06:36 159/90 08/17/16 06:04 174/94 08/17/16 04:00 98.0 96 16 169/105 99 Room Air 08/17/16 00:00 96.4 99 18 160/98 98 Room Air 08/16/16 19:00 98.1 100 20 157/99 98 Room Air Intake and Output 08/16/16 08/17/16 19:00 07:00 Intake Total 757.5 ml 365.0 ml Balance 757.5 ml 365.0 ml Intake Oral 240 ml 120 ml IV Total 517.5 ml 245.0 ml # Voids 2 5 # Bowel Movements 2 1 General Appearance: WD/WN Respiratory/Chest: chest wall non-tender, lungs clear Breasts: no masses Cardiovascular: normal rate Abdomen: normal bowel sounds, soft, non tender Extremities: no cyanosis Skin: no rash Microbiology Date/Time Source Procedure Growth Status 08/15/16 07:10 Blood Blood Culture - Preliminary NO GROWTH AFTER 24 HOURS Resulted 08/15/16 07:05 Blood Blood Culture - Preliminary NO GROWTH AFTER 24 HOURS Resulted 08/15/16 11:00 Nasal Nares MRSA Culture - Final NO METHICILLIN RESISTANT STAPH AUREUS... Complete 08/15/16 07:25 Urine,Clean Catch Urine Culture - Preliminary YEAST Gram Negative Bacillus 1 Resulted 08/15/16 11:00 Rectal Mucosa VRE Culture - Final NO VANCOMYCIN RESISTANT ENTEROCOCCUS ... Complete Current Medications Medications (Trade) Dose Ordered Sig/Samaria Route PRN Reason Start Time Stop Time Status Last Admin Dose Admin Acetaminophen (Tylenol) 650 mg Q4H PRN ORAL fever 08/15/16 12:00 09/14/16 11:59 Albuterol/ Ipratropium (DuoNeb 0.5-3(2.5)mg/3ml) 3 ml Q4H PRN HHN Shortness of Breath 08/15/16 12:00 08/20/16 11:59 Amlodipine Besylate (Norvasc) 5 mg DAILY ORAL 08/16/16 09:00 09/15/16 08:59 08/17/16 12:33 Aspirin (Ecotrin) 81 mg DAILY ORAL 08/16/16 09:00 09/15/16 08:59 08/16/16 08:41 Clonidine HCl 0.1 mg 0.1 mg Q4H PRN ORAL sbp more than 170 08/15/16 14:30 09/14/16 14:29 08/17/16 06:04 Dextrose (Dextrose 50%) STAT PRN IV Hypoglycemia 08/15/16 12:00 09/14/16 11:59 Heparin Sodium (Porcine) (Heparin 5000 units/ml) 5,000 units EVERY 12 HOURS SUBQ 08/15/16 21:00 09/14/16 20:59 08/16/16 20:47 Hydralazine HCl (Apresoline) 25 mg DAILY ORAL 08/15/16 14:15 09/14/16 14:14 08/17/16 12:32 Insulin Aspart (NovoLOG) BEFORE MEALS AND HS SUBQ 08/15/16 16:30 09/14/16 16:29 08/17/16 16:58 Morphine Sulfate (Morphine Sulfate) 2 mg Q4H PRN IVP Moderate Pain (Pain Scale 4-6) 08/15/16 12:00 08/22/16 11:59 08/15/16 13:48 Nitroglycerin (Ntg) 0.4 mg Q5MIN X 3 DOSES PRN SL Prn Chest Pain 08/15/16 12:00 09/14/16 11:59 Ondansetron HCl (Zofran) 4 mg Q6H PRN IVP Nausea & Vomiting 08/15/16 12:00 09/14/16 11:59 Piperacillin Sod/ Tazobactam Sod 3.375 gm/Dextrose 110 ml @ 27.5 mls/hr Q8HR IVPB 08/15/16 22:00 08/22/16 21:59 08/17/16 13:04 Polyethylene Glycol (Miralax) 17 gm DAILYPRN PRN ORAL Constipation 08/15/16 12:00 09/14/16 11:59 Sodium Chloride (Sodium Chloride 1000ml bag) 1,000 ml @ 75 mls/hr [id number] IVLG 08/15/16 20:00 09/14/16 19:59 08/17/16 13:05 Temazepam (Restoril) 15 mg HSPRN PRN ORAL Insomnia 08/15/16 21:00 08/22/16 20:59 Vancomycin HCl 1.5 gm/Dextrose 325 ml @ 162.5 mls/ hr Q24H IVPB 08/15/16 18:00 08/20/16 17:59 08/16/16 17:47 EMMA BALL Aug 17, 2016 17:06
--- NOTE | 2016-08-17 17:28 | Infectious Diseases Prog Note ---
Assessment/Plan Assessment/Plan ASSESSMENT: 86 y/o female with: // Right maxillary molar infection - CT: Findings suggestive of mild dental/periodontal disease involving the right upper second molar with mild overlying soft tissue prominence. No evidence of associated abscess. // Possible recurrent UTI - UCx <10K GNR, 10-20K yeast, h/o E.coli // h/o CONS, ACB bacteremias r/o recurrence - BCx pending // h/o right heel DFU / MSSA cellulitis 09/2014, no evidence of recurrence // Afebrile without leukocytosis // DM2 // Dementia // NH resident // h/o MRSA, VRE colonization // NKDA // Full Code PLAN: - ok to DC on PO augmentin x7d. Will continue IV vancomycin, zosyn d# 3 / while still inpt - f/u cultures - monitor CBC, temperatures - monitor BMP d/w Dr. Carias Subjective Allergies: Coded Allergies: No Known Allergies (Unverified , 04/03/13) Subjective remains afebrile. no new complaint for possible DC Objective Vital Signs Last 24 Hour Vital Signs Date Time Temp Pulse Resp B/P Pulse Ox O2 Delivery O2 Flow Rate FiO2 08/17/16 16:00 97.3 96 20 102/53 97 Room Air 08/17/16 12:33 87 160/94 08/17/16 12:32 160/94 08/17/16 11:55 97.9 87 21 160/94 99 Room Air 08/17/16 08:00 97.9 90 20 147/94 99 Room Air 08/17/16 06:36 159/90 08/17/16 06:04 174/94 08/17/16 04:00 98.0 96 16 169/105 99 Room Air 08/17/16 00:00 96.4 99 18 160/98 98 Room Air 08/16/16 19:00 98.1 100 20 157/99 98 Room Air Height (Feet): 5 Height (Inches): 6.00 Weight (Pounds): 225 General Appearance: no acute distress Respiratory/Chest: no respiratory distress Cardiovascular: normal rate, regular rhythm Abdomen: normal bowel sounds, soft, non tender, non distended Microbiology Date/Time Source Procedure Growth Status 08/15/16 07:10 Blood Blood Culture - Preliminary NO GROWTH AFTER 24 HOURS Resulted 08/15/16 07:05 Blood Blood Culture - Preliminary NO GROWTH AFTER 24 HOURS Resulted 08/15/16 11:00 Nasal Nares MRSA Culture - Final NO METHICILLIN RESISTANT STAPH AUREUS... Complete 08/15/16 07:25 Urine,Clean Catch Urine Culture - Preliminary YEAST Gram Negative Bacillus 1 Resulted 08/15/16 11:00 Rectal Mucosa VRE Culture - Final NO VANCOMYCIN RESISTANT ENTEROCOCCUS ... Complete Current Medications Medications (Trade) Dose Ordered Sig/Samaria Route PRN Reason Start Time Stop Time Status Last Admin Dose Admin Acetaminophen (Tylenol) 650 mg Q4H PRN ORAL fever 08/15/16 12:00 09/14/16 11:59 Albuterol/ Ipratropium (DuoNeb 0.5-3(2.5)mg/3ml) 3 ml Q4H PRN HHN Shortness of Breath 08/15/16 12:00 08/20/16 11:59 Amlodipine Besylate (Norvasc) 5 mg DAILY ORAL 08/16/16 09:00 09/15/16 08:59 08/17/16 12:33 Aspirin (Ecotrin) 81 mg DAILY ORAL 08/16/16 09:00 09/15/16 08:59 08/16/16 08:41 Clonidine HCl 0.1 mg 0.1 mg Q4H PRN ORAL sbp more than 170 08/15/16 14:30 09/14/16 14:29 08/17/16 06:04 Dextrose (Dextrose 50%) STAT PRN IV Hypoglycemia 08/15/16 12:00 09/14/16 11:59 Heparin Sodium (Porcine) (Heparin 5000 units/ml) 5,000 units EVERY 12 HOURS SUBQ 08/15/16 21:00 09/14/16 20:59 08/16/16 20:47 Hydralazine HCl (Apresoline) 25 mg DAILY ORAL 08/15/16 14:15 09/14/16 14:14 08/17/16 12:32 Insulin Aspart (NovoLOG) BEFORE MEALS AND HS SUBQ 08/15/16 16:30 09/14/16 16:29 08/17/16 16:58 Morphine Sulfate (Morphine Sulfate) 2 mg Q4H PRN IVP Moderate Pain (Pain Scale 4-6) 08/15/16 12:00 08/22/16 11:59 08/15/16 13:48 Nitroglycerin (Ntg) 0.4 mg Q5MIN X 3 DOSES PRN SL Prn Chest Pain 08/15/16 12:00 09/14/16 11:59 Ondansetron HCl (Zofran) 4 mg Q6H PRN IVP Nausea & Vomiting 08/15/16 12:00 09/14/16 11:59 Piperacillin Sod/ Tazobactam Sod 3.375 gm/Dextrose 110 ml @ 27.5 mls/hr Q8HR IVPB 08/15/16 22:00 08/22/16 21:59 08/17/16 13:04 Polyethylene Glycol (Miralax) 17 gm DAILYPRN PRN ORAL Constipation 08/15/16 12:00 09/14/16 11:59 Sodium Chloride (Sodium Chloride 1000ml bag) 1,000 ml @ 75 mls/hr [id number] IVLG 08/15/16 20:00 09/14/16 19:59 08/17/16 13:05 Temazepam (Restoril) 15 mg HSPRN PRN ORAL Insomnia 08/15/16 21:00 08/22/16 20:59 Vancomycin HCl 1.5 gm/Dextrose 325 ml @ 162.5 mls/ hr Q24H IVPB 08/15/16 18:00 08/20/16 17:59 08/16/16 17:47 MAGO DUNBAR Aug 17, 2016 17:28
[2016-08-17] MEDS: Vancomycin 1.5 GM in D5W 325 ML IVPB SCH (18:14)
[2016-08-17] MEDS ORDERED: Tubing IV Secondary IV ONE (19:59)
--- NOTE | 2016-08-18 19:25 | Discharge Summary ---
Discharge Summary Hospital Course Date of Admission Aug 15, 2016 at 10:50 Date of Discharge Aug 17, 2016 at 20:00 Admitting Diagnosis DENTAL INFECTIONS,UTI HPI Martha Wade is a 86 year old female who was admitted on Aug 15, 2016 at 10:50 for Dental Infections,Urinary Tract Infection Hospital Course [id number] Discharge Discharge Disposition Patient was discharged to SNF/Subacute Facility(03) Discharge Diagnoses: Angelina Lora NP Aug 18, 2016 19:25
--- NOTE | 2016-08-19 05:17 | Discharge Summary 2 SIG ---
DATE OF ADMISSION: 08/15/2016 DATE OF DISCHARGE: 08/17/2016 MODEL ENGINE MECHANIC: Willis Hernandez M.D. BRIEF HOSPITAL COURSE: The patient is an 86-year-old female with history of CVA, diabetes, and hypertension, fdc resident was brought in by ambulance for increased right-sided facial swelling. History was limited due to patient's mental status. The patient had gradual onset of symptoms and facial CT at the ED showed periodontal abscess. Dr. Hernandez was consulted. The patient is afebrile without leukocytosis and was started on empiric vancomycin and cefepime. Urine was cultured with growth of gram-negative rods and yeast. The patient clinically improving. The patient has an outpatient dental appointment and was discharged to fdc with oral antibiotic Augmentin as recommended by ID. FINAL DIAGNOSES: 1. Right maxillary molar infection. 2. Cellulitis of the face. 3. Diabetes mellitus. 4. Hypertension. 5. Possible recurrent urinary tract infection. 6. Sepsis. 7. [facility] resident. Selin Carias M.D. I have been assigned to dictate discharge summary on this account and I was not involved in the patient's management. Angelina Lora N.P. DR: LISA JOB#: [id number] CC: LISANDRO
== END 2016-08-17 20:00 | DRG 872 ==
LOC: EDBD 06:36 → EDUNIT# 06:36 → EMR 07:40 → 4E 10:50 → EDBEDREQ 10:54 → 4E 08-16 13:35
DX: A41.9 Sepsis, unspecified organism (principal); F03.90 Unspecified dementia, unspecified severity, without behavioral disturbance, psychotic disturbance, mood disturbance, and anxiety; E11.9 Type 2 diabetes mellitus without complications; K12.2 Cellulitis and abscess of mouth; B37.49 Other urogenital candidiasis; K04.7 Periapical abscess without sinus; Z86.73 Personal history of transient ischemic attack (TIA), and cerebral infarction without residual deficits; Z86.14 Personal history of Methicillin resistant Staphylococcus aureus infection; Z87.440 Personal history of urinary (tract) infections; Z79.84 Long term (current) use of oral hypoglycemic drugs
CPT/HCPCS: 36415; 70486; 71010; 76775; 80053; 81003; 82550; 82553; 82962; 83605; 83735; 83880; 83930; 84100; 84439; 84484; 84550; 85025; 87040; 87081; 87086; 87181; 93005; J1815

== ENCOUNTER 2019-02-01 11:36 | Inpatient (IN) | payer MEDICARE, MEDICAID ==
[~2019-02-01] VITALS: Ht 165.1 cm; Wt 92.1 kg
[~2019-02-01 11:36] MED LIST changes: +ASPIRIN325 MG ORAL; +AUGMENTIN 875-1 EAC1 ORAL; +INSULIN DETEMIR SUBQ; +METFORMIN HCL500 M1 ORAL; +Robitussin DM PO
--- NOTE | 2019-02-01 11:47 | NUR ---
ED Nurse Note: Patient brought in by ambulance from [facility] due to fever starting last night, 97.1F. patient was given 500mg Tylenol at 1100 today. Pt BIBA from [facility] Conv due to fever started 1900 last night, 97.1F at ambulance base axillary after 500mg Tylenol given @1100 this morning.
[2019-02-01 11:50] VITALS: BP 135/103
[2019-02-01 12:17] VITALS: BP 150/77
[2019-02-01 12:30] LABS: BASOPHILS % (AUTO) 0.9 % (0.0-2.0); EOSINOPHILS % (AUTO) 2.4 % (0.0-3.0); HEMATOCRIT 35.9 % (37.0-47.0); HEMOGLOBIN 10.7 G/DL (12.0-16.0); LYMPHOCYTES % (AUTO) 19.6 % (20.0-45.0); MEAN CORPUSCULAR VOLUME 79 FL (80-99); MONOCYTES % (AUTO) 9.5 % (1.0-10.0); NEUTROPHILS % (AUTO) 67.7 % (45.0-75.0); PLATELET COUNT 294 K/UL (150-450); RED BLOOD COUNT 4.52 M/UL (4.20-5.40); RED CELL DISTRIBUTION WIDTH 16.1 % (11.6-14.8); WHITE BLOOD COUNT 8.2 K/UL (4.8-10.8)
[2019-02-01 12:35] LABS: ANION GAP 11 mmol/L (5-15); BLOOD UREA NITROGEN 19 mg/dL (7-18); CALCIUM 9.6 MG/DL (8.5-10.1); CARBON DIOXIDE 27 MMOL/L (21-32); CHLORIDE 103 MMOL/L (98-107); POTASSIUM 5.2 MMOL/L (3.5-5.1); SODIUM 141 MMOL/L (136-145)
[2019-02-01 12:43] LABS: APPEARANCE,URINE CLOUDY; BILIRUBIN, URINE NEGATIVE (NEGATIVE); COLOR,URINE PALE YELLOW; GLUCOSE, URINE (UA) NEGATIVE (NEGATIVE); KETONES,URINE NEGATIVE (NEGATIVE); LEUKOCYTE ESTERASE ,URINE 2+ (NEGATIVE); NITRITE,URINE POSITIVE (NEGATIVE); PH,URINE 7 (4.5-8.0); PROTEIN,URINE 2+ (NEGATIVE); UROBILINOGEN,URINE NORMAL MG/DL (0.0-1.0)
[2019-02-01 12:46] LABS: ALANINE AMINOTRANSFERASE 11 U/L (12-78); ALBUMIN 3.3 G/DL (3.4-5.0); ALBUMIN/GLOBULIN RATIO 0.6 (1.0-2.7); ALKALINE PHOSPHATASE 89 U/L (46-116); ASPARTATE AMINO TRANSFERASE 29 U/L (15-37); BILIRUBIN,TOTAL 0.3 MG/DL (0.2-1.0)
--- NOTE | 2019-02-01 12:56 | Diagnostic Imaging Report ---
Indication: Dyspnea Comparison: 08/15/2016 A single view chest radiograph was obtained. Findings: Pulmonary vascular congestion noted. The heart is enlarged. Bones are unremarkable. IMPRESSION: Pulmonary vascular congestion
[2019-02-01] MEDS ORDERED: cefTRIAXone 1 GM in NS 55 ML IVPB ONE (14:00)
[2019-02-01] MEDS ORDERED: Sodium Chloride 2,800 ML IVLG ONE (14:00)
--- NOTE | 2019-02-01 14:10 | NUR ---
ED Nurse Note: Notified Dr. Bah regarding patient's lactic acid result pending, Dr. Bah ok for the patient to be transferred to .
--- NOTE | 2019-02-01 14:32 | NUR ---
NURSE NOTES: received report from ELY Melo,ER. patient will be admitted to room 411-[address] Carias. med reconsile, swab done at ER. NKA. incontinent x2. Room air. no fever at this time. IV on Rwrist 22/LAC 20. will continue to provide plan of care.
--- NOTE | 2019-02-01 14:35 | NUR ---
ED Nurse Note: report given to Elaina GRAVES, endorsed all plan of care to Elaina GRAVES. patient is being transferred to with [employer]
--- NOTE | 2019-02-01 14:36 | NUR ---
ED Nurse Note: DR CARDENAS BY the bedside
--- NOTE | 2019-02-01 14:37 | NUR ---
ED Nurse Note: Patient transferred to 4 E with [facility] [employer]
--- NOTE | 2019-02-01 14:48 | Emergency Room Report ---
History of Present Illness General Chief Complaint: Fever Source: Patient Present Illness HPI 88-year-old female presents ED for evaluation. Patient brought in by EMS from custodial facility. Reportedly had fever last night. Given Tylenol. Patient nonverbal at baseline unable to provide any additional history at this time. Afebrile in triage. No reported signs of distress. No other aggravating relieving factors. No other associated symptoms Allergies: Coded Allergies: No Known Allergies (Unverified , 04/03/13) Patient History Past Medical History: DM, HTN, CVA/TIA, dementia Past Surgical History: none Pertinent Family History: none Social History: Denies: smoking, alcohol use, drug use Now: No Immunizations: UTD Reviewed Nursing Documentation: PMH: Agreed; PSxH: Agreed Nursing Documentation-PMH Past Medical History: No History, Except For Hx Cardiac Problems: Yes - HF, anemia, cerebral neurysm Hx Hypertension: Yes - Hemiplegia, Hemiparesis Hx Asthma: No Hx COPD: No Hx Diabetes: Yes Hx Cancer: No Hx Gastrointestinal Problems: No Hx Dialysis: No Hx Neurological Problems: Yes Hx Cerebrovascular Accident: Yes Hx Dementia: Yes Hx Parkinson's Disease: No Hx Seizures: No Hx Spinal Cord Injury: No Hx Head Trauma: No Hx Traumatic Brain Injury: No Hx Weakness: Yes - BLE Hx Fatigue: Yes Hx Neurologic Surgery: Yes - s/p brain surgery (aneurysm) Review of Systems All Other Systems: negative except mentioned in HPI Physical Exam Vital Signs Date Time Temp Pulse Resp B/P (MAP) Pulse Ox O2 Delivery O2 Flow Rate FiO2 02/01/19 11:37 97.2 95 20 156/74 (101) 96 Room Air Sp02 EP Interpretation: reviewed, normal General Appearance: no apparent distress, other - nonverbal Head: normocephalic ENT: hearing grossly normal, normal pharynx, no angioedema, normal voice Neck: full range of motion, supple/symm/no masses Respiratory: chest non-tender, lungs clear, normal breath sounds, speaking full sentences Cardiovascular #1: regular rate, rhythm, no edema Gastrointestinal: normal bowel sounds, non tender, soft, non-distended, no guarding, no rebound Rectal: deferred Genitourinary: no CVA tenderness Musculoskeletal: normal inspection Neurologic: other - nonverbal Psychiatric: other - nonverbal Skin: other Lymphatic: normal inspection Medical Decision Making Diagnostic Impression: Primary Impression: UTI (urinary tract infection) Qualified Codes: N39.0 - Urinary tract infection, site not specified; R31.9 - Hematuria, unspecified Additional Impression: Sepsis Qualified Codes: A41.9 - Sepsis, unspecified organism ER Course Hospital Course 88-year-old female presenting to ED with generalized weakness, fever Differential diagnoses include: Pneumonia, UTI, sepsis, dehydration, SC/ unstable angina Clinical course Patient placed on stretcher. On monitoring manager with stable vitals are ED course. After initial history and physical, I ordered labs, IV fluids, EKG, chest x-ray, blood cultures, UA. Labs - K 5.2, no leukocytosis, UA grossly positive for UTI , lactic elevated EKG - NSR, no acute ischemic changes interpreted by me CXR - no acute process Abx given. given 30cc/kg fluid bolus. kayexelate given. Case discussed with Dr Carias and they agreed to admit patient to their service for further care and support I feel this is a highly complex case requiring extensive working including EKG/ Rhythm strip, Xray/CT/US, Blood/urine lab work, repeat exams while in ED, and administration of strong opiates/narcotics for pain control, admission to hospital or close patient follow up. Diagnosis - UTI, sepsis Patient admitted to floor in serious condition Labs Test 02/01/19 12:10 02/01/19 14:09 White Blood Count 8.2 K/UL (4.8-10.8) Red Blood Count 4.52 M/UL (4.20-5.40) Hemoglobin 10.7 G/DL (12.0-16.0) Hematocrit 35.9 % (37.0-47.0) Mean Corpuscular Volume 79 FL (80-99) Mean Corpuscular Hemoglobin 23.6 PG (27.0-31.0) Mean Corpuscular Hemoglobin Concent 29.8 G/DL (32.0-36.0) Red Cell Distribution Width 16.1 % (11.6-14.8) Platelet Count 294 K/UL (150-450) Mean Platelet Volume 5.3 FL (6.5-10.1) Neutrophils (%) (Auto) 67.7 % (45.0-75.0) Lymphocytes (%) (Auto) 19.6 % (20.0-45.0) Monocytes (%) (Auto) 9.5 % (1.0-10.0) Eosinophils (%) (Auto) 2.4 % (0.0-3.0) Basophils (%) (Auto) 0.9 % (0.0-2.0) Urine Color Pale yellow Urine Appearance Cloudy Urine pH 7 (4.5-8.0) Urine Specific [place] 1.010 (1.005-1.035) Urine Protein 2+ (NEGATIVE) Urine Glucose (UA) Negative (NEGATIVE) Urine Ketones Negative (NEGATIVE) Urine Blood Negative (NEGATIVE) Urine Nitrite Positive (NEGATIVE) Urine Bilirubin Negative (NEGATIVE) Urine Urobilinogen Normal MG/DL (0.0-1.0) Urine Leukocyte Esterase 2+ (NEGATIVE) Urine RBC 0-2 /HPF (0 - 2) Urine WBC 15-20 /HPF (0 - 2) Urine Squamous Epithelial Cells Moderate /LPF (NONE/OCC) Urine Bacteria Many /HPF (NONE) Sodium Level 141 MMOL/L (136-145) Potassium Level 5.2 MMOL/L (3.5-5.1) Chloride Level 103 MMOL/L (98-107) Carbon Dioxide Level 27 MMOL/L (21-32) Anion Gap 11 mmol/L (5-15) Blood Urea Nitrogen 19 mg/dL (7-18) Creatinine 1.0 MG/DL (0.55-1.30) Estimat Glomerular Filtration Rate mL/min (>60) Glucose Level 119 MG/DL (74-106) Lactic Acid Level 3.50 mmol/L (0.4-2.0) 3.10 mmol/L (0.66-2.22) Calcium Level 9.6 MG/DL (8.5-10.1) Total Bilirubin 0.3 MG/DL (0.2-1.0) Aspartate Amino Transf (AST/SGOT) 29 U/L (15-37) Alanine Aminotransferase (ALT/SGPT) 11 U/L (12-78) Alkaline Phosphatase 89 U/L (46-116) Pro-B-Type Natriuretic Peptide 73 pg/mL (0-125) Total Protein 8.7 G/DL (6.4-8.2) Albumin 3.3 G/DL (3.4-5.0) Globulin 5.4 g/dL Albumin/Globulin Ratio 0.6 (1.0-2.7) EKG Diagnostic Results Rate: normal Rhythm: NSR ST Segments: no acute changes ASA given to the pt in ED: Yes Rhythm Strip Diag. Results EP Interpretation: yes Rhythm: NSR, no PVC's Chest X-Ray Diagnostic Results Chest X-Ray Diagnostic Results : Chest X-Ray Ordered: Yes # of Views/Limited/Complete: 1 View Indication: Other EP Interpretation: Yes Interpretation: no consolidation, no effusion, no pneumothorax, no acute cardiopulmonary disease Impression: No acute disease Electronically Signed by: Electronically signed by Ross Bah MD Last Vital Signs Date Time Temp Pulse Resp B/P (MAP) Pulse Ox O2 Delivery O2 Flow Rate FiO2 02/01/19 12:19 96 21 Room Air 02/01/19 12:17 98.3 150/77 99 Status: improved Disposition: ADMITTED INPATIENT Condition: Stable Referrals: Selin Carias MD (PCP) Ross Bah MD Feb 01, 2019 14:48
--- NOTE | 2019-02-01 15:24 | History & Physical ---
History and Physical History & Physicial Asad De Paz MD Feb 01, 2019 15:24
[2019-02-01] MEDS ORDERED: Miralax 17gm pkt ORAL PRN ×2 (15:30)
[2019-02-01] MEDS ORDERED: Albuterol/Ipratropium 3ml neb HHN PRN (15:30)
[2019-02-01] MEDS ORDERED: Morphine Sulfate 2mg/ml Inj(IV/IM USE ONLY) IVP PRN (15:30)
--- NOTE | 2019-02-01 15:33 | Consultation ---
History of Present Illness General Date patient seen: Feb 01, 2019 Chief Complaint: Fever Present Illness HPI 88-year-old female with hx of DM, HTN, CVA/TIA, dementia, [facility] resident presented to ED for evaluation of fever last night. Patient nonverbal at baseline unable to provide any additional history at this time. No reported signs of distress. No other aggravating relieving factors. No other associated symptoms. Pt was diagnosed to have urosepsis and is admitted for further management. Allergies: Coded Allergies: No Known Allergies (Unverified , 04/03/13) Patient History Past Medical History: Allergies: Coded Allergies: No Known Allergies (Unverified , 04/03/13) Medication History Scheduled Amlodipine Besylate (Norvasc), 10 MG ORAL DAILY, (Reported) Amoxicillin/Potassium Clav 875-125* (Augmentin 875-125 Tablet*), 1 TAB ORAL TWICE A DAY Aspirin (Ecotrin), 81 MG ORAL DAILY Aspirin* (Aspirin*), 325 MG ORAL DAILY, (Reported) Ceftriaxone Sod (Ceftriaxone 1 gm-D5w Bag), 1 GM IVPB DAILY Cephalexin* (Keflex*), 500 MG ORAL EVERY 12 HOURS Ciprofloxacin Hcl* (Ciprofloxacin Hcl*), 500 MG ORAL Q12H Ferrous Sulfate* (Ferrous Sulfate*), 325 MG ORAL DAILY, (Reported) Gentamicin/Sod Chl (Iso Gentamicin 120 mg/100 ml), 120 MG IM TID Hydralazine Hcl* (Hydralazine Hcl*), 20 MG ORAL DAILY, (Reported) Insulin Aspart (Novolog Flexpen), 0 UNITS SUBQ BEFORE MEALS AND HS Insulin Detemir (Levemir Flexpen), 6 UNITS SUBQ Q24H Levofloxacin* (Levaquin*), 500 MG ORAL DAILY Metformin Hcl* (Metformin Hcl*), 1,000 MG ORAL BID, (Reported) Trimethoprim/Sulfamethoxazole (Bactrim Ds Tablet), 2 EA ORAL EVERY 12 HOURS Trimethoprim/Sulfamethoxazole 160/800* (Bactrim Ds Tablet*), 1 TAB ORAL TWICE A DAY [Insuilin Detemir pen], 15 UNITS SUBQ QHS, (Reported) Scheduled PRN Acetaminophen (Acetaminophen), 650 MG ORAL Q6H PRN for For Pain, (Reported) Bisacodyl (Dulcolax), 10 MG RC DAILY PRN for Constipation, (Reported) Clonidine Hcl* (Catapres*), 0.1 MG ORAL EVERY 6 HOURS PRN for For High Blood Pressure, (Reported) Magnesium Hydroxide* (Milk Of Magnesia*), 30 ML ORAL DAILY PRN for Constipation, (Reported) Na Phos,M-B/Na Phos,Di-Ba* (Fleet Enema*), 133 ML RECTAL every 3 days PRN for Constipation, (Reported) Polyethylene Glycol* (Miralax*), 17 GM ORAL HSPRN PRN for Constipation [Robitussin DM], 5 ML PO Q6HR PRN for For Cough, (Reported) Patient History Healthcare decision maker Resuscitation status Advanced Directive on File Past Medical/Surgical History Past Medical/Surgical History: (1) Advanced dementia (2) HTN (hypertension) (3) DM (diabetes mellitus) (4) senior living resident Review of Systems All Other Systems: negative except mentioned in HPI Physical Exam General Appearance: WD/WN Lines, tubes and drains: peripheral HEENT: normocephalic, atraumatic Neck: non-tender, normal alignment Respiratory/Chest: chest wall non-tender Breasts: no masses Cardiovascular/Chest: normal peripheral pulses Abdomen: normal bowel sounds Genitourinary/Rectal: normal genital exam Extremities: normal range of motion Last 24 Hour Vital Signs Date Time Temp Pulse Resp B/P (MAP) Pulse Ox O2 Delivery O2 Flow Rate FiO2 02/01/19 14:41 Room Air 02/01/19 14:37 98.3 96 21 150/77 99 Room Air 02/01/19 12:19 96 21 Room Air 02/01/19 12:17 98.3 96 21 150/77 99 Room Air 02/01/19 11:50 97.2 107 26 135/103 100 Room Air 02/01/19 11:37 97.2 95 20 156/74 (101) 96 Room Air Laboratory Tests Test 02/01/19 12:10 02/01/19 14:09 White Blood Count 8.2 K/UL (4.8-10.8) Red Blood Count 4.52 M/UL (4.20-5.40) Hemoglobin 10.7 G/DL (12.0-16.0) L Hematocrit 35.9 % (37.0-47.0) L Mean Corpuscular Volume 79 FL (80-99) L Mean Corpuscular Hemoglobin 23.6 PG (27.0-31.0) L Mean Corpuscular Hemoglobin Concent 29.8 G/DL (32.0-36.0) L Red Cell Distribution Width 16.1 % (11.6-14.8) H Platelet Count 294 K/UL (150-450) Mean Platelet Volume 5.3 FL (6.5-10.1) L Neutrophils (%) (Auto) 67.7 % (45.0-75.0) Lymphocytes (%) (Auto) 19.6 % (20.0-45.0) L Monocytes (%) (Auto) 9.5 % (1.0-10.0) Eosinophils (%) (Auto) 2.4 % (0.0-3.0) Basophils (%) (Auto) 0.9 % (0.0-2.0) Urine Color Pale yellow Urine Appearance Cloudy Urine pH 7 (4.5-8.0) Urine Specific [place] 1.010 (1.005-1.035) Urine Protein 2+ (NEGATIVE) H Urine Glucose (UA) Negative (NEGATIVE) Urine Ketones Negative (NEGATIVE) Urine Blood Negative (NEGATIVE) Urine Nitrite Positive (NEGATIVE) H Urine Bilirubin Negative (NEGATIVE) Urine Urobilinogen Normal MG/DL (0.0-1.0) Urine Leukocyte Esterase 2+ (NEGATIVE) H Urine RBC 0-2 /HPF (0 - 2) Urine WBC 15-20 /HPF (0 - 2) H Urine Squamous Epithelial Cells Moderate /LPF (NONE/OCC) H Urine Bacteria Many /HPF (NONE) H Sodium Level 141 MMOL/L (136-145) Potassium Level 5.2 MMOL/L (3.5-5.1) H Chloride Level 103 MMOL/L (98-107) Carbon Dioxide Level 27 MMOL/L (21-32) Anion Gap 11 mmol/L (5-15) Blood Urea Nitrogen 19 mg/dL (7-18) H Creatinine 1.0 MG/DL (0.55-1.30) Estimat Glomerular Filtration Rate mL/min (>60) Glucose Level 119 MG/DL (74-106) H Lactic Acid Level 3.50 mmol/L (0.4-2.0) H 3.10 mmol/L (0.66-2.22) H Calcium Level 9.6 MG/DL (8.5-10.1) Total Bilirubin 0.3 MG/DL (0.2-1.0) Aspartate Amino Transf (AST/SGOT) 29 U/L (15-37) Alanine Aminotransferase (ALT/SGPT) 11 U/L (12-78) L Alkaline Phosphatase 89 U/L (46-116) Pro-B-Type Natriuretic Peptide 73 pg/mL (0-125) Total Protein 8.7 G/DL (6.4-8.2) H Albumin 3.3 G/DL (3.4-5.0) L Globulin 5.4 g/dL Albumin/Globulin Ratio 0.6 (1.0-2.7) L Height (Feet): 5 Height (Inches): 7.00 Weight (Pounds): 203 Medications Current Medications Medications (Trade) Dose Ordered Sig/Samaria Route PRN Reason Start Time Stop Time Status Last Admin Dose Admin Acetaminophen (Tylenol) 650 mg Q4H PRN ORAL fever 02/01/19 15:30 03/03/19 15:29 UNV Albuterol/ Ipratropium (Albuterol/ Ipratropium) 3 ml EVERY 4 HOURS PRN HHN Shortness of Breath 02/01/19 15:30 02/06/19 15:29 UNV Amlodipine Besylate (Norvasc) 10 mg DAILY ORAL 02/02/19 09:00 03/04/19 08:59 UNV Cefepime HCl 2 gm/ Dextrose 110 ml @ 220 mls/hr EVERY 12 HOURS IV 02/01/19 21:00 02/08/19 20:59 UNV Ceftriaxone Sodium 1 gm/ Dextrose 50 ml @ 100 mls/hr Q24H IVPB 02/02/19 14:00 02/09/19 13:59 Clonidine HCl (Catapres Tab) 0.1 mg EVERY 6 HOURS PRN ORAL For High Blood Pressure 02/01/19 15:30 03/03/19 15:29 UNV Dextrose (Dextrose 50%) STAT PRN IV Hypoglycemia 02/01/19 15:30 03/03/19 15:29 UNV Heparin Sodium (Porcine) (Heparin 5000 units/ml) 5,000 units EVERY 12 HOURS SUBQ 02/01/19 21:00 03/03/19 20:59 UNV Hydralazine HCl (Apresoline) 20 mg DAILY ORAL 02/02/19 09:00 03/04/19 08:59 UNV Insulin Aspart (NovoLOG) BEFORE MEALS AND HS SUBQ 02/01/19 16:30 03/03/19 16:29 UNV Morphine Sulfate (Morphine Sulfate) 2 mg EVERY 4 HOURS PRN IVP Moderate Pain (Pain Scale 4-6) 02/01/19 15:30 02/08/19 15:29 UNV Nitroglycerin (Ntg) 0.4 mg Every 5 Minutes PRN SL Prn Chest Pain 02/01/19 15:30 03/03/19 15:29 UNV Ondansetron HCl (Zofran) 4 mg Q6H PRN IVP Nausea & Vomiting 02/01/19 15:30 03/03/19 15:29 UNV Polyethylene Glycol (Miralax) 17 gm DAILYPRN PRN ORAL Constipation 02/01/19 15:30 03/03/19 15:29 UNV Polyethylene Glycol (Miralax) 17 gm HSPRN PRN ORAL Constipation 02/01/19 15:30 03/03/19 15:29 UNV Sodium Chloride 2,800 ml @ 1,800 mls/hr Q1H34M ONCE IVLG 02/01/19 14:00 02/01/19 15:33 02/01/19 14:14 Temazepam (Restoril) 15 mg HSPRN PRN ORAL Insomnia 02/01/19 15:30 02/08/19 15:29 UNV Vancomycin HCl 1 gm/Dextrose 275 ml @ 183.3 mls/ hr Q24H IV 02/02/19 00:30 02/07/19 00:29 UNV Assessment/Plan Problem List: (1) Sepsis ICD Codes: A41.9 - Sepsis, unspecified organism SNOMED: 75549318 Qualifiers: Qualified Codes: A41.9 - Sepsis, unspecified organism (2) Hyperkalemia ICD Codes: E87.5 - Hyperkalemia SNOMED: 31677891 (3) UTI (urinary tract infection) ICD Codes: N39.0 - UTI (urinary tract infection) SNOMED: 03482819 Qualifiers: Qualified Codes: N39.0 - Urinary tract infection, site not specified; R31.9 - Hematuria, unspecified (4) HTN (hypertension) ICD Codes: I10 - Essential (primary) hypertension SNOMED: 51001192 (5) DM (diabetes mellitus) ICD Codes: E11.9 - DM (diabetes mellitus) SNOMED: 67234582 Assessment/Plan: iv fluids conn cultures iv abx ID evaluaiton Monitor BP dvt prophylaxis monitor BS sliding scale diabetic diet Selin Carias MD Feb 01, 2019 15:33
[2019-02-01] MEDS ORDERED: Nitroglycerin Subl 0.4mg tab SL PRN (15:45)
[2019-02-01] MEDS ORDERED: Dextrose 50% 25ml Syringe IV PRN (15:45)
[2019-02-01 16:00] VITALS: BP 161/84
[2019-02-01] MEDS: HydrALAZINE 10mg Tab ORAL SCH ×2 (16:37→21:24)
[2019-02-01] MEDS: NovoLOG Insulin Flexpen SUBQ SCH ×2 (16:42→20:35)
[2019-02-01] MEDS ORDERED: Vancomycin 1.5gm Premix IVPB SCH (17:00)
--- NOTE | 2019-02-01 17:15 | History and Physical Report ---
DATE OF ADMISSION: 02/01/2019 CHIEF COMPLAINT: Fever. HISTORY OF PRESENT ILLNESS: This is an 88-year-old female with past medical history significant for diabetes type 2, hypertension, history of CVA, TIA, dementia, acute kidney injury, rhabdomyolysis, history of hemiplegia, cellulitis, dysphagia, heart failure, cerebral aneurysm not ruptured, altered mental status, who was presented to the hospital from nursing facility after she was noted to have fever. The patient was given Tylenol last night and fever was improved and the patient's baseline is nonverbal due to severe dementia and mostly history was taken from the ER chart as well as correction documentation. Subsequently, the patient was admitted to the hospital with sepsis possible due to the acute urinary tract infection as well as mild dehydration. PAST MEDICAL HISTORY/PAST SURGICAL HISTORY: As above. History of diabetes type 2, hemiplegia, history of kidney cyst, rhabdomyolysis, acute kidney injury, essential hypertension, lack of coordination, tinea corporis, cellulitis, peripheral vascular disease, cognitive disorder, dysphagia, morbid obesity, altered mental status, dementia. MEDICATIONS: At correction, please refer to medication reconciliation. ALLERGIES: No known drug allergies. SOCIAL HISTORY: No smoking, alcohol, or drugs. FAMILY HISTORY: Noncontributory. REVIEW OF SYSTEMS: Mostly as above. Very limited secondary to the patient's status. Fever was documented. No chills. No fall. No head trauma. No nausea or vomiting. PHYSICAL EXAMINATION: VITAL SIGNS: On admission, temperature 97.2, pulse of 95, respiration 20, and blood pressure 156/74. GENERAL: The patient is awake, responsive to the questions by moaning, however, cannot follow commands. HEAD AND NECK: Pupils were equal and reactive to light. Anicteric. Neck was supple. No JVD. LUNGS: Good air entry. Expiratory wheezes. No rhonchi. HEART: S1, S2. Distant heart sounds. No murmur or gallops. ABDOMEN: Soft, nondistended, nontender. Morbidly obese. EXTREMITIES: No cyanosis, clubbing, or edema. NEUROLOGIC: Cranial nerves II through XII grossly intact. The patient is moving all the extremities spontaneously, upper extremity more than lower extremity. Gait was not assessed due to the patient's status. RECTAL: Refused and deferred. GENITOURINARY: Refused and deferred. PSYCHIATRIC: Mood and affect is unable to obtain. LABORATORY DATA: On admission from the ER, chest x-ray showed the patient has mild pulmonary vascular congestion. WBC of 8.2, hemoglobin 10.7, hematocrit 35, platelet is 294,000. Sodium 141, potassium 5.2, chloride 103, bicarbonate 27, BUN 19, creatinine 1.0, glucose is 119. Lactic acid is 3.5 and repeat one was 3.10. Total bilirubin is 0.3, AST of 29, ALT of 11, albumin is 3.3. Urinalysis, total protein is +2, positive nitrite, +2 leukocytes, and 5-20 wbc's, many bacteria, moderate squamous epithelial cell. ASSESSMENT: 1. Sepsis, most likely secondary to sepsis due to the urinary tract infection. 2. Diabetes type 2. 3. Hypertension. 4. Dementia. 5. Morbid obesity. 6. Fluid overload with pulmonary congestion. 7. Anemia. 8. History of cerebral aneurysm. PLAN: Admit the patient to Med/Surg. We will follow up with laboratory. Monitor blood culture and blood glucose level. We will start the patient on broad-spectrum antibiotic with ceftriaxone. Follow up with urine culture. Resume correction medication. Code status, Full Code. DVT prophylaxis, heparin subcu. We will follow up with Dr. Carias, Pulmonary/Critical Care consultation. Asad De Paz M.D. DR: Taylor JOB#: [id number] CC:
--- NOTE | 2019-02-01 19:18 | NUR ---
NURSE NOTES: Received a report from ELY Delaney. Pt is in stable condition. AAOX1. On room air. No pain/discomfort noted. IV site is patent and intact. Bed in lowest position. Bed alarm is on. Call light within reach. Will continue to monitor.
--- NOTE | 2019-02-01 19:41 | NUR ---
HAND-OFF: Report given to ELY Gunn&ELY Damon.
--- NOTE | 2019-02-01 19:53 | NUR ---
NURSE NOTES: Received report from ELY Delaney. Patient is resting in bed, awake and alert x1. So signs of respiratory distress. Bed is locked and in lowest position with alarm on. Call light in reach. Left hand IV is intact. Will continue to monitor the patient.
[2019-02-01 20:00] VITALS: BP 172/94
[2019-02-01] MEDS: Cefepime HCl 2 GM in D5W 110 ML IV SCH (20:29)
[2019-02-01] MEDS: Heparin 5000 units/ml inj SUBQ SCH (20:36)
[2019-02-01] MEDS ORDERED: Cefepime HCl 2 GM in D5W 110 ML IV SCH (21:00)
[2019-02-02] VITALS (8 sets, daily range): BP systolic 125–174; BP diastolic 72–111
[2019-02-02] MEDS ORDERED: Vancomycin 1 GM in D5W 275 ML IV SCH (00:30)
[2019-02-02] MEDS: HydrALAZINE 10mg Tab ORAL SCH ×4 (05:37→22:30)
--- NOTE | 2019-02-02 05:44 | Pulmonology Progress Note ---
Assessment/Plan Problems: (1) Sepsis (2) Hyperkalemia (3) UTI (urinary tract infection) (4) HTN (hypertension) (5) DM (diabetes mellitus) Assessment/Plan iv fluids iv abx check urine cultures sliding scale diabetic diet monitor BP dvt prophylaxis. Subjective ROS Limited/Unobtainable: No Constitutional: Reports: no symptoms HEENT: Repors: no symptoms Respiratory: Reports: no symptoms Allergies: Coded Allergies: No Known Allergies (Unverified , 04/03/13) Objective Last 24 Hour Vital Signs Date Time Temp Pulse Resp B/P (MAP) Pulse Ox O2 Delivery O2 Flow Rate FiO2 02/02/19 05:00 98 18 131/83 (99) 97 02/02/19 04:00 99.7 100 18 170/101 (124) 96 02/02/19 01:20 102 165/94 (117) 02/02/19 00:00 98.1 104 20 174/111 (132) 94 02/01/19 23:14 174/104 02/01/19 21:24 172/94 02/01/19 21:00 Room Air 02/01/19 20:00 97.8 99 16 172/94 (120) 96 02/01/19 19:55 98 18 97 Room Air 21 02/01/19 16:37 161/84 02/01/19 16:00 97.9 97 18 161/84 (109) 95 02/01/19 14:41 Room Air 02/01/19 14:37 98.3 96 21 150/77 99 Room Air 02/01/19 12:19 96 21 Room Air 02/01/19 12:17 98.3 96 21 150/77 99 Room Air 02/01/19 11:50 97.2 107 26 135/103 100 Room Air 02/01/19 11:37 97.2 95 20 156/74 (101) 96 Room Air Intake and Output 02/01/19 02/02/19 19:00 07:00 Intake Total 635.0 ml 110 ml Balance 635.0 ml 110 ml Intake Oral 360 ml IV Total 275.0 ml 110 ml Objective General Appearance: WD/WN HEENT: normocephalic, anicteric Respiratory/Chest: chest wall non-tender, normal breath sounds Breasts: no masses Cardiovascular: normal rate Abdomen: soft, non tender, non distended Extremities: no cyanosis General Appearance: WD/WN Laboratory Tests 02/01/19 12:10: White Blood Count 8.2, Red Blood Count 4.52, Hemoglobin 10.7L, Hematocrit 35.9L , Mean Corpuscular Volume 79L, Mean Corpuscular Hemoglobin 23.6L, Mean Corpuscular Hemoglobin Concent 29.8L, Red Cell Distribution Width 16.1H, Platelet Count 294, Mean Platelet Volume 5.3L, Neutrophils (%) (Auto) 67.7, Lymphocytes (%) (Auto) 19.6L, Monocytes (%) (Auto) 9.5, Eosinophils (%) (Auto) 2.4, Basophils (%) (Auto) 0.9, Urine Color Pale yellow, Urine Appearance Cloudy , Urine pH 7, Urine Specific [place] 1.010, Urine Protein 2+H, Urine Glucose (UA ) Negative, Urine Ketones Negative, Urine Blood Negative, Urine Nitrite PositiveH, Urine Bilirubin Negative, Urine Urobilinogen Normal, Urine Leukocyte Esterase 2+H, Urine RBC 0-2, Urine WBC 15-20H, Urine Squamous Epithelial Cells ModerateH, Urine Bacteria ManyH, Sodium Level 141, Potassium Level 5.2H, Chloride Level 103, Carbon Dioxide Level 27, Anion Gap 11, Blood Urea Nitrogen 19H, Creatinine 1.0, Estimat Glomerular Filtration Rate , Glucose Level 119H, Lactic Acid Level 3.50H, Calcium Level 9.6, Total Bilirubin 0.3, Aspartate Amino Transf (AST/SGOT) 29, Alanine Aminotransferase (ALT/SGPT) 11L, Alkaline Phosphatase 89, Pro-B-Type Natriuretic Peptide 73, Total Protein 8.7H, Albumin 3.3L, Globulin 5.4, Albumin/Globulin Ratio 0.6L 02/01/19 14:09: Lactic Acid Level 3.10H Current Medications Medications (Trade) Dose Ordered Sig/Samaria Route PRN Reason Start Time Stop Time Status Last Admin Dose Admin Acetaminophen (Tylenol) 650 mg Q4H PRN ORAL T>100.5 02/01/19 15:30 03/03/19 15:29 Albuterol/ Ipratropium (Albuterol/ Ipratropium) 3 ml Q4H PRN HHN Shortness of Breath 02/01/19 15:30 02/06/19 15:29 Amlodipine Besylate (Norvasc) 10 mg DAILY ORAL 02/02/19 09:00 03/04/19 08:59 Cefepime HCl 2 gm/ Dextrose 110 ml @ 220 mls/hr Q24H IV 02/01/19 20:00 02/08/19 19:59 02/01/19 20:29 Clonidine HCl (Catapres Tab) 0.1 mg Q6H PRN ORAL SBP > 160mmHg 02/01/19 15:30 03/03/19 15:29 02/01/19 23:14 Dextrose (Dextrose 50%) 25 ml Q30M PRN IV Hypoglycemia 02/01/19 15:45 03/03/19 15:34 Dextrose (Dextrose 50%) 50 ml Q30M PRN IV hypoglycemia 02/01/19 15:45 03/03/19 15:44 Heparin Sodium (Porcine) (Heparin 5000 units/ml) 5,000 units EVERY 12 HOURS SUBQ 02/01/19 21:00 03/03/19 20:59 02/01/19 20:36 Hydralazine HCl (Apresoline) 10 mg Q8HR ORAL 02/01/19 16:00 03/03/19 15:59 02/01/19 21:24 Insulin Aspart (NovoLOG) BEFORE MEALS AND HS SUBQ 02/01/19 16:30 03/03/19 16:29 02/01/19 20:35 Morphine Sulfate (Morphine Sulfate) 2 mg Q4H PRN IVP PAIN 4-10 02/01/19 15:30 02/08/19 15:29 Nitroglycerin (Ntg) 0.4 mg Q5MIN X 3 DOSES PRN SL Prn Chest Pain 02/01/19 15:45 03/03/19 15:44 Ondansetron HCl (Zofran) 4 mg Q6H PRN IVP Nausea & Vomiting 02/01/19 15:30 03/03/19 15:29 Polyethylene Glycol (Miralax) 17 gm DAILYPRN PRN ORAL Constipation 02/01/19 15:30 03/03/19 15:29 Temazepam (Restoril) 15 mg HSPRN PRN ORAL Insomnia 02/01/19 21:00 02/08/19 20:59 Vancomycin HCl (Vanco rx to dose) 1 ea DAILY PRN MISC . 02/01/19 15:45 03/03/19 15:44 Vancomycin HCl/ Dextrose 275 ml @ 137.5 mls/ hr Q24H IVPB 02/01/19 17:00 02/06/19 16:59 02/01/19 16:43 Selin Carias MD Feb 02, 2019 05:44
[2019-02-02] MEDS: NovoLOG Insulin Flexpen SUBQ SCH ×4 (06:06→20:54)
[2019-02-02 07:23] LABS: HEMATOCRIT 34.3 % (37.0-47.0); HEMOGLOBIN 10.5 G/DL (12.0-16.0); MEAN CORPUSCULAR VOLUME 78 FL (80-99); PLATELET COUNT 339 K/UL (150-450); RED BLOOD COUNT 4.38 M/UL (4.20-5.40); RED CELL DISTRIBUTION WIDTH 15.7 % (11.6-14.8); WHITE BLOOD COUNT 7.3 K/UL (4.8-10.8)
--- NOTE | 2019-02-02 07:33 | NUR ---
HAND-OFF: Report given to ELY Oconnell.
[2019-02-02 07:39] LABS: INR 0.9 (0.9-1.1)
[2019-02-02 07:50] LABS: ALANINE AMINOTRANSFERASE 14 U/L (12-78); ALBUMIN 3.3 G/DL (3.4-5.0); ALBUMIN/GLOBULIN RATIO 0.6 (1.0-2.7); ALKALINE PHOSPHATASE 87 U/L (46-116); ANION GAP 9 mmol/L (5-15); ASPARTATE AMINO TRANSFERASE 14 U/L (15-37); BILIRUBIN,TOTAL 0.2 MG/DL (0.2-1.0); BLOOD UREA NITROGEN 12 mg/dL (7-18); CARBON DIOXIDE 28 MMOL/L (21-32); CHLORIDE 105 MMOL/L (98-107); PHOSPHORUS 2.7 MG/DL (2.5-4.9); POTASSIUM 3.7 MMOL/L (3.5-5.1); SODIUM 142 MMOL/L (136-145)
[2019-02-02 07:56] LABS: LACTATE DEHYDROGENASE 155 U/L (81-234)
[2019-02-02 08:00] LABS: CALCIUM 9.5 MG/DL (8.5-10.1); CREATININE 0.8 MG/DL (0.55-1.30)
--- NOTE | 2019-02-02 08:14 | NUR ---
NURSE NOTES: Pt awake alert, no distress. no sob. bed in lowest position, locked. call light within reach. will monitor.
[2019-02-02 08:29] LABS: % IRON SATURATION 7 % (15-50); IRON 18 ug/dL (50-175); TOTAL IRON BINDING CAPACITY 265 ug/dL (250-450)
[2019-02-02] MEDS: Heparin 5000 units/ml inj SUBQ SCH ×2 (08:46→20:44)
--- NOTE | 2019-02-02 12:17 | Consultation ---
Consult Note Consult Note # [id number] Jesse Power MD Feb 02, 2019 12:17
[2019-02-02] MEDS ORDERED: cefTRIAXone 1 GM in D5W 50 ML IVPB SCH (14:00)
--- NOTE | 2019-02-02 15:24 | Internal Med Progress Note ---
Subjective Physician Name Asad De Paz Attending Physician Asad De Paz MD Current Medications Medications (Trade) Dose Ordered Sig/Samaria Route PRN Reason Start Time Stop Time Status Last Admin Dose Admin Acetaminophen (Tylenol) 650 mg Q4H PRN ORAL T>100.5 02/01/19 15:30 03/03/19 15:29 Albuterol/ Ipratropium (Albuterol/ Ipratropium) 3 ml Q4H PRN HHN Shortness of Breath 02/01/19 15:30 02/06/19 15:29 Amlodipine Besylate (Norvasc) 10 mg DAILY ORAL 02/02/19 09:00 03/04/19 08:59 02/02/19 08:45 Cefepime HCl 2 gm/ Dextrose 110 ml @ 220 mls/hr Q24H IV 02/01/19 20:00 02/08/19 19:59 02/01/19 20:29 Clonidine HCl (Catapres Tab) 0.1 mg Q6H PRN ORAL SBP > 160mmHg 02/01/19 15:30 03/03/19 15:29 02/01/19 23:14 Dextrose (Dextrose 50%) 25 ml Q30M PRN IV Hypoglycemia 02/01/19 15:45 03/03/19 15:34 Dextrose (Dextrose 50%) 50 ml Q30M PRN IV hypoglycemia 02/01/19 15:45 03/03/19 15:44 Heparin Sodium (Porcine) (Heparin 5000 units/ml) 5,000 units EVERY 12 HOURS SUBQ 02/01/19 21:00 03/03/19 20:59 02/02/19 08:46 Hydralazine HCl (Apresoline) 10 mg Q8HR ORAL 02/01/19 16:00 03/03/19 15:59 02/02/19 13:19 Insulin Aspart (NovoLOG) BEFORE MEALS AND HS SUBQ 02/01/19 16:30 03/03/19 16:29 02/02/19 11:35 Morphine Sulfate (Morphine Sulfate) 2 mg Q4H PRN IVP PAIN 4-10 02/01/19 15:30 02/08/19 15:29 Nitroglycerin (Ntg) 0.4 mg Q5MIN X 3 DOSES PRN SL Prn Chest Pain 02/01/19 15:45 03/03/19 15:44 Ondansetron HCl (Zofran) 4 mg Q6H PRN IVP Nausea & Vomiting 02/01/19 15:30 03/03/19 15:29 Polyethylene Glycol (Miralax) 17 gm DAILYPRN PRN ORAL Constipation 02/01/19 15:30 03/03/19 15:29 Temazepam (Restoril) 15 mg HSPRN PRN ORAL Insomnia 02/01/19 21:00 02/08/19 20:59 Allergies: Coded Allergies: No Known Allergies (Unverified , 04/03/13) Subjective awake, responsive, minimally verbal , forgetful and demented. Objective Last Vital Signs Date Time Temp Pulse Resp B/P (MAP) Pulse Ox O2 Delivery O2 Flow Rate FiO2 02/02/19 13:19 98.5 100 18 162/85 (110) 97 02/02/19 09:00 Room Air 02/02/19 07:16 21 Laboratory Tests Test 02/02/19 06:15 White Blood Count 7.3 K/UL (4.8-10.8) Red Blood Count 4.38 M/UL (4.20-5.40) Hemoglobin 10.5 G/DL (12.0-16.0) L Hematocrit 34.3 % (37.0-47.0) L Mean Corpuscular Volume 78 FL (80-99) L Mean Corpuscular Hemoglobin 23.9 PG (27.0-31.0) L Mean Corpuscular Hemoglobin Concent 30.5 G/DL (32.0-36.0) L Red Cell Distribution Width 15.7 % (11.6-14.8) H Platelet Count 339 K/UL (150-450) Mean Platelet Volume 5.2 FL (6.5-10.1) L Neutrophils (%) (Auto) % (45.0-75.0) Lymphocytes (%) (Auto) % (20.0-45.0) Monocytes (%) (Auto) % (1.0-10.0) Eosinophils (%) (Auto) % (0.0-3.0) Basophils (%) (Auto) % (0.0-2.0) Differential Total Cells Counted 100 Neutrophils % (Manual) 72 % (45-75) Lymphocytes % (Manual) 18 % (20-45) L Monocytes % (Manual) 6 % (1-10) Eosinophils % (Manual) 4 % (0-3) H Basophils % (Manual) 0 % (0-2) Band Neutrophils 0 % (0-8) Platelet Estimate Adequate Platelet Morphology Normal Anisocytosis 1+ Microcytosis 1+ Erythrocyte Sedimentation Rate 47 MM/HR (0-30) H Reticulocyte Count 1.0 % (0.5-2.0) Prothrombin Time 10.0 SEC (9.30-11.50) Prothromb Time International Ratio 0.9 (0.9-1.1) Activated Partial Thromboplast Time 28 SEC (23-33) Sodium Level 142 MMOL/L (136-145) Potassium Level 3.7 MMOL/L (3.5-5.1) Chloride Level 105 MMOL/L (98-107) Carbon Dioxide Level 28 MMOL/L (21-32) Anion Gap 9 mmol/L (5-15) Blood Urea Nitrogen 12 mg/dL (7-18) Creatinine 0.8 MG/DL (0.55-1.30) Estimat Glomerular Filtration Rate mL/min (>60) Glucose Level 136 MG/DL (74-106) H Calcium Level 9.5 MG/DL (8.5-10.1) Phosphorus Level 2.7 MG/DL (2.5-4.9) Magnesium Level 1.8 MG/DL (1.8-2.4) Iron Level 18 ug/dL (50-175) L Total Iron Binding Capacity 265 ug/dL (250-450) Percent Iron Saturation 7 % (15-50) L Unsaturated Iron Binding 247 ug/dL (112-346) Total Bilirubin 0.2 MG/DL (0.2-1.0) Aspartate Amino Transf (AST/SGOT) 14 U/L (15-37) L Alanine Aminotransferase (ALT/SGPT) 14 U/L (12-78) Alkaline Phosphatase 87 U/L (46-116) Lactate Dehydrogenase 155 U/L (81-234) Troponin I 0.000 ng/mL (0.000-0.056) Total Protein 8.4 G/DL (6.4-8.2) H Albumin 3.3 G/DL (3.4-5.0) L Globulin 5.1 g/dL Albumin/Globulin Ratio 0.6 (1.0-2.7) L Carcinoembryonic Antigen Pending Vitamin B12 Level 482 PG/ML (193-986) Folate 5.7 NG/ML (8.6-58.9) L Microbiology Date/Time Source Procedure Growth Status 02/01/19 12:10 Urine,Clean Catch Urine Culture - Preliminary Gram Negative Onel Resulted Intake and Output 02/01/19 02/02/19 18:59 06:59 Intake Total 635.0 ml 230 ml Balance 635.0 ml 230 ml Intake Oral 360 ml 120 ml IV Total 275.0 ml 110 ml # Voids 3 Objective GENERAL: awake, responsive to the questions by moaning, cannot follow commands. HEAD AND NECK: Pupils were equal and reactive to light. Anicteric. Neck was supple. No JVD. LUNGS: Good air entry. decrease air at bases, + wheezes. No rhonchi. HEART: S1, S2. Distant heart sounds. No murmur or gallops. ABDOMEN: Soft, nondistended, nontender. Morbidly obese. EXTREMITIES: No cyanosis, clubbing, or edema. NEUROLOGIC: Cranial nerves II through XII grossly intact. The patient is moving all the extremities spontaneously, upper extremity more than lower extremity. Gait was not assessed due to the patient's status. Assessment/Plan Assessment/Plan ASSESSMENT: 1. Sepsis, most likely secondary to sepsis due to the GNR urinary tract infection. 2. Diabetes type 2. 3. Hypertension. 4. Dementia. 5. Morbid obesity. 6. Fluid overload with pulmonary congestion. 7. Iron deficiency Anemia. 8. History of cerebral aneurysm. 9. Hyperkalemia. PLAN: In Med/Surg. Monitor labs and culture Antibiotic: Cefepime. Code status: Full Code. DVT prophylaxis: heparin subcu. Dr. Carias, Pulmonary/Critical Care consultation. Dr. Power with ID consultation Start Asad Nolan IV, MD Feb 02, 2019 15:24
--- NOTE | 2019-02-02 16:21 | NUR ---
CASE MANAGEMENT: REVIEW 88Y/F BIBA FROM [facility] CC: FEVER . PMHX: BRAIN SURGERY / ANEURYSM SI: SEPSIS . UTI T 97.2 HR 107 RR 26 BP 156/74 SAT 96% ROOM AIR LACTIC ACID 3.10 UA: PROTEIN 2+ NITRITE + LEUKOCYTE ESTERASE 2+ BACTERIA MANY IS: NS IVF BOLUS X1 CEFTRIAXONE IV X1 PATIENT ADMITTED TO MED/SURG UNIT 02/01/2019 DCP: PATIENT IS FROM [facility]
--- NOTE | 2019-02-02 18:15 | Consultation ---
DATE OF CONSULTATION: 02/02/2019 INFECTIOUS DISEASES CONSULTATION CONSULTING PHYSICIAN: Jesse Power M.D. REFERRING PHYSICIAN: 1. Asad De Paz M.D. 2. Selin Carias M.D. REASON FOR CONSULTATION: Evaluation of the patient for sepsis, fever. HISTORY OF PRESENT ILLNESS: The patient is an 88-year-old female, poor historian, who was brought from the long-term to this medical center because of fever, possible sepsis. Infectious disease consultation has been requested for further evaluation of the patient and antibiotic management. According to nurse, the patient does not have diarrhea or significant cough. The patient's urine culture is growing gram-negative rods. The patient has been started on IV antibiotics. PAST MEDICAL HISTORY: 1. Diabetes. 2. History of hemiplegia. 3. History of rhabdomyolysis/acute renal injury. 4. Hypertension. 5. Peripheral vascular disease. 6. Dysphagia. 7. Morbid obesity. 8. Dementia. ALLERGIES: No known drug allergies. SOCIAL HISTORY: Negative for alcohol, drug abuse, smoking. FAMILY HISTORY: Not contributing. MEDICATIONS: The patient is on cefepime and vancomycin. PHYSICAL EXAMINATION: VITAL SIGNS: Temperature 98.5, pulse 86, blood pressure 147/80, respiratory rate 18. HEENT: Mild pale conjunctivae. No scleral icterus. NECK: No lymphadenopathy. CHEST: Clear. HEART: S1 and S2. ABDOMEN: Soft, obese. EXTREMITIES: No cyanosis at this time. NEUROLOGIC: Nonverbal. LABORATORY DATA: WBC 7.3, hemoglobin 10, platelets 239,000. BUN 12, creatinine 0.8. ALT, AST, and alkaline phosphatase unremarkable. UA shows 15-20 white blood cells. Urine culture is growing more than 100,000 colonies of gram-negative rods. Chest x-ray, pulmonary vascular congestion. ASSESSMENT: The patient is an 88-year-old female with: 1. Fever prior to the admission. 2. Normal white blood cells. 3. Probable UTI. 4. Doubt pneumonia (no history of cough). PLAN: 1. We will continue the patient on cefepime. 2. Hold vancomycin. 3. Monitor CBC. 4. Monitor BMP. 5. Monitor cultures (blood, urine). 6. Monitor chest x-ray. 7. Based on the patient's clinical course and laboratories, we will do further recommendation. Thank you, Dr. De Paz and Dr. Carias, for allowing us to participate in the care of this patient. I will follow this patient during this hospitalization. Jesse Power M.D. DR: Shannan JOB#: [id number] CC:
--- NOTE | 2019-02-02 19:00 | NUR ---
HAND-OFF: Report given to YANELY GRAVES.
--- NOTE | 2019-02-02 19:30 | NUR ---
NURSE NOTES: Received report & pt from ELY Oconnell. Pt lying in bed, non-verbal, in room air. No s/s of acute distress & no s/s of pain. IV site intact & S/L'd. Bed in lowest position, call light within reach. Will continue to monitor.
[2019-02-02] MEDS: Cefepime HCl 2 GM in D5W 110 ML IV SCH (20:43)
[2019-02-02] MEDS ORDERED: Iron Sucrose 100 MG in NS 55 ML IV SCH (21:00)
[2019-02-03] VITALS: BP 155/86
[2019-02-03 04:59] VITALS: BP 167/92
[2019-02-03] MEDS: HydrALAZINE 10mg Tab ORAL SCH ×4 (05:59→21:12)
[2019-02-03] MEDS: NovoLOG Insulin Flexpen SUBQ SCH ×4 (05:59→21:09)
--- NOTE | 2019-02-03 06:05 | NUR ---
NURSE NOTES: Pt continued to refuse Hydralazine. Pt wont open mouth & kept shaking her head. Explained risks & benefits; continued to refuse.
--- NOTE | 2019-02-03 07:00 | NUR ---
NURSE NOTES: Fermín called from lab to report blood culture result with gram positive cocci in clusters. Informed Dr. Power regarding result; Per , "Ok thanks"
[2019-02-03 07:29] LABS: HEMATOCRIT 37.1 % (37.0-47.0); HEMOGLOBIN 11.2 G/DL (12.0-16.0); MEAN CORPUSCULAR VOLUME 79 FL (80-99); PLATELET COUNT 352 K/UL (150-450); RED BLOOD COUNT 4.71 M/UL (4.20-5.40); WHITE BLOOD COUNT 6.7 K/UL (4.8-10.8)
--- NOTE | 2019-02-03 07:30 | NUR ---
HAND-OFF: Report given to ELY Walker. Rounds done.
--- NOTE | 2019-02-03 07:52 | Pulmonology Progress Note ---
Assessment/Plan Problems: (1) Sepsis (2) Hyperkalemia (3) UTI (urinary tract infection) (4) HTN (hypertension) (5) DM (diabetes mellitus) Assessment/Plan iv fluids iv abx urine cultures available, adjust abx BC positive, most likely contaminant sliding scale diabetic diet monitor BP dvt prophylaxis. Subjective ROS Limited/Unobtainable: No Interval Events: looks better Constitutional: Reports: no symptoms HEENT: Repors: no symptoms Allergies: Coded Allergies: No Known Allergies (Unverified , 04/03/13) Objective Last 24 Hour Vital Signs Date Time Temp Pulse Resp B/P (MAP) Pulse Ox O2 Delivery O2 Flow Rate FiO2 02/03/19 04:59 97.0 102 20 167/92 (117) 98 02/03/19 00:00 99.0 104 20 155/86 (109) 96 02/02/19 21:00 Room Air 02/02/19 20:00 98.6 103 20 156/102 (120) 96 02/02/19 19:42 97 18 96 Room Air 21 02/02/19 15:53 97.3 103 18 125/72 (89) 97 02/02/19 13:19 98.5 100 18 162/85 (110) 97 02/02/19 13:19 162/85 02/02/19 09:00 Room Air 02/02/19 08:45 80 147/80 02/02/19 07:52 98.5 80 18 147/80 (102) 97 Intake and Output 02/02/19 02/03/19 19:00 07:00 Intake Total 400 ml Balance 400 ml Intake Oral 400 ml # Voids 3 Objective General Appearance: WD/WN HEENT: normocephalic, anicteric Respiratory/Chest: chest wall non-tender, normal breath sounds Breasts: no masses Cardiovascular: normal rate Abdomen: soft, non tender, non distended Extremities: no cyanosis Microbiology Date/Time Source Procedure Growth Status 02/01/19 14:09 Blood Blood Culture - Preliminary Staphylococcus Species Resulted 02/01/19 12:10 Blood Blood Culture - Preliminary NO GROWTH AFTER 24 HOURS Resulted 02/01/19 12:38 Nasal Nares MRSA Culture - Final NO METHICILLIN RESISTANT STAPH AUREUS... Complete 02/01/19 12:10 Urine,Clean Catch Urine Culture - Final Escherichia Coli Complete 02/01/19 12:38 Rectum VRE Culture - Final NO VANCOMYCIN RESISTANT ENTEROCOCCUS ... Complete 02/01/19 12:38 Rectum - Final NO CARBAPENEM-RESISTANT ENTEROBACTERI... Complete Laboratory Tests 02/03/19 06:30: White Blood Count [Pending], Red Blood Count [Pending], Hemoglobin [Pending], Hematocrit [Pending], Mean Corpuscular Volume [Pending], Mean Corpuscular Hemoglobin [Pending], Mean Corpuscular Hemoglobin Concent [Pending], Red Cell Distribution Width [Pending], Platelet Count [Pending], Mean Platelet Volume [ Pending], Neutrophils (%) (Auto) [Pending], Lymphocytes (%) (Auto) [Pending], Monocytes (%) (Auto) [Pending], Eosinophils (%) (Auto) [Pending], Basophils (%) (Auto) [Pending], Erythrocyte Sedimentation Rate [Pending], Sodium Level [ Pending], Potassium Level [Pending], Chloride Level [Pending], Carbon Dioxide Level [Pending], Blood Urea Nitrogen [Pending], Creatinine [Pending], Estimat Glomerular Filtration Rate [Pending], Glucose Level [Pending], Calcium Level [ Pending], Phosphorus Level [Pending], Magnesium Level [Pending], Total Bilirubin [Pending], Aspartate Amino Transf (AST/SGOT) [Pending], Alanine Aminotransferase (ALT/SGPT) [Pending], Alkaline Phosphatase [Pending], C- Reactive Protein, Quantitative [Pending], Total Protein [Pending], Albumin [ Pending], Globulin [Pending] Current Medications Medications (Trade) Dose Ordered Sig/Samaria Route PRN Reason Start Time Stop Time Status Last Admin Dose Admin Acetaminophen (Tylenol) 650 mg Q4H PRN ORAL T>100.5 02/01/19 15:30 03/03/19 15:29 Albuterol/ Ipratropium (Albuterol/ Ipratropium) 3 ml Q4H PRN HHN Shortness of Breath 02/01/19 15:30 02/06/19 15:29 Amlodipine Besylate (Norvasc) 10 mg DAILY ORAL 02/02/19 09:00 03/04/19 08:59 02/02/19 08:45 Cefepime HCl 2 gm/ Dextrose 110 ml @ 220 mls/hr Q24H IV 02/01/19 20:00 02/08/19 19:59 02/02/19 20:43 Clonidine HCl (Catapres Tab) 0.1 mg Q6H PRN ORAL SBP > 160mmHg 02/01/19 15:30 03/03/19 15:29 02/01/19 23:14 Dextrose (Dextrose 50%) 25 ml Q30M PRN IV Hypoglycemia 02/01/19 15:45 03/03/19 15:34 Dextrose (Dextrose 50%) 50 ml Q30M PRN IV hypoglycemia 02/01/19 15:45 03/03/19 15:44 Heparin Sodium (Porcine) (Heparin 5000 units/ml) 5,000 units EVERY 12 HOURS SUBQ 02/01/19 21:00 03/03/19 20:59 02/02/19 20:44 Hydralazine HCl (Apresoline) 10 mg Q8HR ORAL 02/01/19 16:00 03/03/19 15:59 02/02/19 13:19 Insulin Aspart (NovoLOG) BEFORE MEALS AND HS SUBQ 02/01/19 16:30 03/03/19 16:29 02/03/19 05:59 Iron Sucrose 100 mg/Sodium Chloride 60 ml @ 240 mls/hr BEDTIME IV 02/02/19 21:00 02/06/19 21:14 02/02/19 20:44 Morphine Sulfate (Morphine Sulfate) 2 mg Q4H PRN IVP PAIN 4-10 02/01/19 15:30 02/08/19 15:29 Nitroglycerin (Ntg) 0.4 mg Q5MIN X 3 DOSES PRN SL Prn Chest Pain 02/01/19 15:45 03/03/19 15:44 Ondansetron HCl (Zofran) 4 mg Q6H PRN IVP Nausea & Vomiting 02/01/19 15:30 03/03/19 15:29 Polyethylene Glycol (Miralax) 17 gm DAILYPRN PRN ORAL Constipation 02/01/19 15:30 03/03/19 15:29 Temazepam (Restoril) 15 mg HSPRN PRN ORAL Insomnia 02/01/19 21:00 02/08/19 20:59 Selin Carias MD Feb 03, 2019 07:52
[2019-02-03 08:00] VITALS: BP 150/91
[2019-02-03 08:11] LABS: ALANINE AMINOTRANSFERASE 12 U/L (12-78); ALBUMIN 3.2 G/DL (3.4-5.0); ALBUMIN/GLOBULIN RATIO 0.6 (1.0-2.7); ALKALINE PHOSPHATASE 84 U/L (46-116); ANION GAP 12 mmol/L (5-15); ASPARTATE AMINO TRANSFERASE 13 U/L (15-37); BILIRUBIN,TOTAL 0.2 MG/DL (0.2-1.0); BLOOD UREA NITROGEN 15 mg/dL (7-18); CALCIUM 9.3 MG/DL (8.5-10.1); CARBON DIOXIDE 26 MMOL/L (21-32); CHLORIDE 105 MMOL/L (98-107); CREATININE 0.9 MG/DL (0.55-1.30); PHOSPHORUS 2.9 MG/DL (2.5-4.9); POTASSIUM 3.6 MMOL/L (3.5-5.1); SODIUM 143 MMOL/L (136-145)
[2019-02-03] MEDS: Heparin 5000 units/ml inj SUBQ SCH ×2 (09:26→21:13)
[2019-02-03] MEDS ORDERED: Iron Sucrose 200 MG in NS 110 ML IV ONE (10:00)
[2019-02-03] MEDS ORDERED: Vancomycin 1.5gm Premix IVPB SCH (11:00)
[2019-02-03 12:00] VITALS: BP 161/91
--- NOTE | 2019-02-03 15:41 | Internal Med Progress Note ---
Subjective Physician Name Asad De Paz Attending Physician Asad De Paz MD Current Medications Medications (Trade) Dose Ordered Sig/Samaria Route PRN Reason Start Time Stop Time Status Last Admin Dose Admin Acetaminophen (Tylenol) 650 mg Q4H PRN ORAL T>100.5 02/01/19 15:30 03/03/19 15:29 Albuterol/ Ipratropium (Albuterol/ Ipratropium) 3 ml Q4H PRN HHN Shortness of Breath 02/01/19 15:30 02/06/19 15:29 Amlodipine Besylate (Norvasc) 10 mg DAILY ORAL 02/02/19 09:00 03/04/19 08:59 02/02/19 08:45 Cefepime HCl 2 gm/ Dextrose 110 ml @ 220 mls/hr Q24H IV 02/01/19 20:00 02/08/19 19:59 02/02/19 20:43 Clonidine HCl (Catapres Tab) 0.1 mg Q6H PRN ORAL SBP > 160mmHg 02/01/19 15:30 03/03/19 15:29 02/03/19 13:50 Dextrose (Dextrose 50%) 25 ml Q30M PRN IV Hypoglycemia 02/01/19 15:45 03/03/19 15:34 Dextrose (Dextrose 50%) 50 ml Q30M PRN IV hypoglycemia 02/01/19 15:45 03/03/19 15:44 Heparin Sodium (Porcine) (Heparin 5000 units/ml) 5,000 units EVERY 12 HOURS SUBQ 02/01/19 21:00 03/03/19 20:59 02/03/19 09:26 Hydralazine HCl (Apresoline) 10 mg Q8HR ORAL 02/01/19 16:00 03/03/19 15:59 02/03/19 13:47 Insulin Aspart (NovoLOG) BEFORE MEALS AND HS SUBQ 02/01/19 16:30 03/03/19 16:29 02/03/19 12:28 Iron Sucrose 100 mg/Sodium Chloride 60 ml @ 240 mls/hr BEDTIME IV 02/04/19 21:00 02/07/19 21:14 Morphine Sulfate (Morphine Sulfate) 2 mg Q4H PRN IVP PAIN 4-10 02/01/19 15:30 02/08/19 15:29 Nitroglycerin (Ntg) 0.4 mg Q5MIN X 3 DOSES PRN SL Prn Chest Pain 02/01/19 15:45 03/03/19 15:44 Ondansetron HCl (Zofran) 4 mg Q6H PRN IVP Nausea & Vomiting 02/01/19 15:30 03/03/19 15:29 Polyethylene Glycol (Miralax) 17 gm DAILYPRN PRN ORAL Constipation 02/01/19 15:30 03/03/19 15:29 Temazepam (Restoril) 15 mg HSPRN PRN ORAL Insomnia 02/01/19 21:00 02/08/19 20:59 Vancomycin HCl (Vanco rx to dose) 1 ea DAILY PRN MISC Per rx protocol 02/03/19 09:30 03/05/19 09:29 Vancomycin HCl/ Dextrose 275 ml @ 137.5 mls/ hr Q24H IVPB 02/03/19 11:00 02/08/19 10:59 02/03/19 12:25 Allergies: Coded Allergies: No Known Allergies (Unverified , 04/03/13) Subjective awake, responsive, minimally verbal , forgetful and demented. Objective Last Vital Signs Date Time Temp Pulse Resp B/P (MAP) Pulse Ox O2 Delivery O2 Flow Rate FiO2 02/03/19 13:50 161/91 02/03/19 12:00 97.6 1 20 96 02/03/19 09:00 Room Air 02/03/19 08:08 21 Laboratory Tests Test 02/03/19 06:30 White Blood Count 6.7 K/UL (4.8-10.8) Red Blood Count 4.71 M/UL (4.20-5.40) Hemoglobin 11.2 G/DL (12.0-16.0) L Hematocrit 37.1 % (37.0-47.0) Mean Corpuscular Volume 79 FL (80-99) L Mean Corpuscular Hemoglobin 23.7 PG (27.0-31.0) L Mean Corpuscular Hemoglobin Concent 30.2 G/DL (32.0-36.0) L Red Cell Distribution Width 16.0 % (11.6-14.8) H Platelet Count 352 K/UL (150-450) Mean Platelet Volume 5.0 FL (6.5-10.1) L Neutrophils (%) (Auto) % (45.0-75.0) Lymphocytes (%) (Auto) % (20.0-45.0) Monocytes (%) (Auto) % (1.0-10.0) Eosinophils (%) (Auto) % (0.0-3.0) Basophils (%) (Auto) % (0.0-2.0) Differential Total Cells Counted 100 Neutrophils % (Manual) 80 % (45-75) H Lymphocytes % (Manual) 14 % (20-45) L Monocytes % (Manual) 4 % (1-10) Eosinophils % (Manual) 2 % (0-3) Basophils % (Manual) 0 % (0-2) Band Neutrophils 0 % (0-8) Platelet Estimate Adequate Platelet Morphology Normal Hypochromasia 1+ Anisocytosis 1+ Microcytosis 1+ Erythrocyte Sedimentation Rate 34 MM/HR (0-30) H Sodium Level 143 MMOL/L (136-145) Potassium Level 3.6 MMOL/L (3.5-5.1) Chloride Level 105 MMOL/L (98-107) Carbon Dioxide Level 26 MMOL/L (21-32) Anion Gap 12 mmol/L (5-15) Blood Urea Nitrogen 15 mg/dL (7-18) Creatinine 0.9 MG/DL (0.55-1.30) Estimat Glomerular Filtration Rate mL/min (>60) Glucose Level 128 MG/DL (74-106) H Calcium Level 9.3 MG/DL (8.5-10.1) Phosphorus Level 2.9 MG/DL (2.5-4.9) Magnesium Level 1.7 MG/DL (1.8-2.4) L Total Bilirubin 0.2 MG/DL (0.2-1.0) Aspartate Amino Transf (AST/SGOT) 13 U/L (15-37) L Alanine Aminotransferase (ALT/SGPT) 12 U/L (12-78) Alkaline Phosphatase 84 U/L (46-116) C-Reactive Protein, Quantitative 7.0 mg/dL (0.00-0.90) H Total Protein 8.2 G/DL (6.4-8.2) Albumin 3.2 G/DL (3.4-5.0) L Globulin 5.0 g/dL Albumin/Globulin Ratio 0.6 (1.0-2.7) L Microbiology Date/Time Source Procedure Growth Status 02/01/19 14:09 Blood Blood Culture - Preliminary Staphylococcus Species Resulted 02/01/19 12:10 Blood Blood Culture - Preliminary NO GROWTH AFTER 24 HOURS Resulted 02/01/19 12:38 Nasal Nares MRSA Culture - Final NO METHICILLIN RESISTANT STAPH AUREUS... Complete 02/01/19 12:10 Urine,Clean Catch Urine Culture - Final Escherichia Coli Complete 02/01/19 12:38 Rectum VRE Culture - Final NO VANCOMYCIN RESISTANT ENTEROCOCCUS ... Complete 02/01/19 12:38 Rectum - Final NO CARBAPENEM-RESISTANT ENTEROBACTERI... Complete Intake and Output 02/02/19 02/03/19 18:59 06:59 Intake Total 400 ml Balance 400 ml Intake Oral 400 ml # Voids 3 Objective GENERAL: awake, responsive to the questions by moaning, cannot follow commands. HEAD AND NECK: Pupils were equal and reactive to light. Anicteric. Neck was supple. No JVD. LUNGS: Good air entry. decrease air at bases, + wheezes. No rhonchi. HEART: S1, S2. Distant heart sounds. No murmur or gallops. ABDOMEN: Soft, nondistended, nontender. Morbidly obese. EXTREMITIES: No cyanosis, clubbing, or edema. NEUROLOGIC: Cranial nerves II through XII grossly intact. The patient is moving all the extremities spontaneously, upper extremity more than lower extremity. Gait was not assessed due to the patient's status. Assessment/Plan Assessment/Plan ASSESSMENT: 1. Sepsis, most likely secondary to sepsis due to the E. coli urinary tract infection. 2. Diabetes type 2. 3. Hypertension. 4. Dementia. 5. Morbid obesity. 6. Fluid overload with pulmonary congestion. 7. Iron deficiency Anemia. 8. History of cerebral aneurysm. 9. Hyperkalemia. PLAN: In Med/Surg. Monitor labs and culture Antibiotic: DC Cefepime and Vanco, start Rocephin IV Code status: Full Code. DVT prophylaxis: heparin subcu. Dr. Carias, Pulmonary/Critical Care consultation. Dr. Power with ID consultation on Venofer IV Asad De Paz MD Feb 03, 2019 15:41
[2019-02-03] MEDS: Magnesium Oxide 400mg tab ORAL SCH ×4 (15:45→18:27)
[2019-02-03 16:00] VITALS: BP 128/92
[2019-02-03] MEDS ORDERED: cefTRIAXone 1 GM in D5W 55 ML IVPB SCH (17:00)
--- NOTE | 2019-02-03 19:31 | NUR ---
NURSE NOTES: Pt lying in bed, non-verbal, on room air. No s/s of acute distress & no s/s of pain. IV site intact, SL. Bed in lowest position, locked, side rails x2, bed alarm on, call light within reach. Will continue to monitor.
[2019-02-03 20:00] VITALS: BP 109/76
--- NOTE | 2019-02-03 20:09 | NUR ---
HAND-OFF: Report given to RN [place].
[2019-02-04] VITALS: BP 126/68
[2019-02-04 04:00] VITALS: BP 157/87
[2019-02-04] MEDS: HydrALAZINE 10mg Tab ORAL SCH ×4 (05:49→13:39)
[2019-02-04] MEDS: NovoLOG Insulin Flexpen SUBQ SCH ×2 (05:51→12:45)
--- NOTE | 2019-02-04 05:58 | NUR ---
NURSE NOTES: Pt refused hydralazine despite high BP. I discussed risks and benefits however pt refused
--- NOTE | 2019-02-04 07:35 | NUR ---
HAND-OFF: Report given to ELY Walker.
[2019-02-04 08:00] VITALS: BP 148/82
[2019-02-04] MEDS: Magnesium Oxide 400mg tab ORAL SCH ×2 (08:29→12:44)
[2019-02-04] MEDS: Heparin 5000 units/ml inj SUBQ SCH (08:31)
[2019-02-04 08:32] LABS: BASOPHILS % (AUTO) 0.5 % (0.0-2.0); EOSINOPHILS % (AUTO) 4.1 % (0.0-3.0); HEMATOCRIT 37.9 % (37.0-47.0); HEMOGLOBIN 11.4 G/DL (12.0-16.0); LYMPHOCYTES % (AUTO) 8.5 % (20.0-45.0); MEAN CORPUSCULAR VOLUME 79 FL (80-99); MONOCYTES % (AUTO) 6.4 % (1.0-10.0); NEUTROPHILS % (AUTO) 80.5 % (45.0-75.0); PLATELET COUNT 372 K/UL (150-450); WHITE BLOOD COUNT 9.6 K/UL (4.8-10.8)
[2019-02-04 08:45] LABS: ALANINE AMINOTRANSFERASE 13 U/L (12-78); ALBUMIN 3.5 G/DL (3.4-5.0); ALBUMIN/GLOBULIN RATIO 0.8 (1.0-2.7); ALKALINE PHOSPHATASE 87 U/L (46-116); ANION GAP 12 mmol/L (5-15); ASPARTATE AMINO TRANSFERASE 16 U/L (15-37); BILIRUBIN,TOTAL 0.2 MG/DL (0.2-1.0); BLOOD UREA NITROGEN 14 mg/dL (7-18); CALCIUM 9.3 MG/DL (8.5-10.1); CARBON DIOXIDE 27 MMOL/L (21-32); CHLORIDE 103 MMOL/L (98-107); PHOSPHORUS 2.8 MG/DL (2.5-4.9); POTASSIUM 3.5 MMOL/L (3.5-5.1); SODIUM 142 MMOL/L (136-145)
[2019-02-04] MEDS ORDERED: BACTRIM DS TAB1 EAC1 ORAL (11:01)
--- NOTE | 2019-02-04 11:02 | Pulmonology Progress Note ---
Assessment/Plan Problems: (1) Sepsis (2) Hyperkalemia (3) UTI (urinary tract infection) (4) HTN (hypertension) (5) DM (diabetes mellitus) Assessment/Plan iv abx, change to po when ok with ID urine cultures available, adjust abx BC positive, most likely contaminant sliding scale diabetic diet monitor BP dvt prophylaxis. Subjective ROS Limited/Unobtainable: No Constitutional: Reports: no symptoms HEENT: Repors: no symptoms Respiratory: Reports: no symptoms Allergies: Coded Allergies: No Known Allergies (Unverified , 04/03/13) Objective Last 24 Hour Vital Signs Date Time Temp Pulse Resp B/P (MAP) Pulse Ox O2 Delivery O2 Flow Rate FiO2 02/04/19 09:00 Room Air 02/04/19 08:31 99 148/82 02/04/19 08:00 98.8 99 20 148/82 (104) 98 02/04/19 07:54 112 20 95 Room Air 21 02/04/19 05:58 157/87 02/04/19 04:00 99.0 106 20 157/87 (110) 98 02/04/19 00:00 97.8 93 16 126/68 (87) 96 02/03/19 21:12 109/76 02/03/19 21:00 Room Air 02/03/19 20:36 102 16 96 Room Air 21 02/03/19 20:00 97.8 79 20 109/76 (87) 95 02/03/19 16:00 98.6 102 20 128/92 (104) 96 02/03/19 13:50 161/91 02/03/19 13:47 161/91 02/03/19 12:00 97.6 1 20 161/91 (114) 96 Intake and Output 02/03/19 02/04/19 19:00 07:00 Intake Total 120 ml Balance 120 ml Intake Oral 120 ml # Voids 5 2 Objective General Appearance: WD/WN HEENT: normocephalic, anicteric Respiratory/Chest: chest wall non-tender, normal breath sounds Breasts: no masses Cardiovascular: normal rate Abdomen: soft, non tender, non distended Extremities: no cyanosis Microbiology Date/Time Source Procedure Growth Status 02/01/19 14:09 Blood Blood Culture - Final Staphylococcus Epidermidis Complete 02/01/19 12:10 Blood Blood Culture - Preliminary NO GROWTH AFTER 48 HOURS Resulted 02/01/19 12:38 Nasal Nares MRSA Culture - Final NO METHICILLIN RESISTANT STAPH AUREUS... Complete 02/01/19 12:10 Urine,Clean Catch Urine Culture - Final Escherichia Coli Complete 02/01/19 12:38 Rectum VRE Culture - Final NO VANCOMYCIN RESISTANT ENTEROCOCCUS ... Complete 02/01/19 12:38 Rectum - Final NO CARBAPENEM-RESISTANT ENTEROBACTERI... Complete Laboratory Tests 02/04/19 06:30: White Blood Count 9.6, Red Blood Count 4.80, Hemoglobin 11.4L, Hematocrit 37.9, Mean Corpuscular Volume 79L, Mean Corpuscular Hemoglobin 23.7L, Mean Corpuscular Hemoglobin Concent 30.0L, Red Cell Distribution Width 16.0H, Platelet Count 372, Mean Platelet Volume 4.7L, Neutrophils (%) (Auto) 80.5H, Lymphocytes (%) (Auto) 8.5L, Monocytes (%) (Auto) 6.4, Eosinophils (%) (Auto) 4.1H, Basophils (%) (Auto) 0.5, Sodium Level 142, Potassium Level 3.5, Chloride Level 103, Carbon Dioxide Level 27, Anion Gap 12, Blood Urea Nitrogen 14, Creatinine 1.0, Estimat Glomerular Filtration Rate , Glucose Level 112H, Calcium Level 9.3, Phosphorus Level 2.8, Magnesium Level 1.8, Total Bilirubin 0.2, Aspartate Amino Transf (AST/SGOT) 16, Alanine Aminotransferase (ALT/SGPT) 13, Alkaline Phosphatase 87, Total Protein 8.0, Albumin 3.5, Globulin 4.5, Albumin/Globulin Ratio 0.8L Current Medications Medications (Trade) Dose Ordered Sig/Samaria Route PRN Reason Start Time Stop Time Status Last Admin Dose Admin Acetaminophen (Tylenol) 650 mg Q4H PRN ORAL T>100.5 02/01/19 15:30 03/03/19 15:29 Albuterol/ Ipratropium (Albuterol/ Ipratropium) 3 ml Q4H PRN HHN Shortness of Breath 02/01/19 15:30 02/06/19 15:29 Amlodipine Besylate (Norvasc) 10 mg DAILY ORAL 02/02/19 09:00 03/04/19 08:59 02/04/19 08:31 Ceftriaxone Sodium 1 gm/ Dextrose 55 ml @ 110 mls/hr Q24H IVPB 02/03/19 17:00 02/10/19 16:59 02/03/19 18:21 Clonidine HCl (Catapres Tab) 0.1 mg Q6H PRN ORAL SBP > 160mmHg 02/01/19 15:30 03/03/19 15:29 02/03/19 13:50 Dextrose (Dextrose 50%) 25 ml Q30M PRN IV Hypoglycemia 02/01/19 15:45 03/03/19 15:34 Dextrose (Dextrose 50%) 50 ml Q30M PRN IV hypoglycemia 02/01/19 15:45 03/03/19 15:44 Heparin Sodium (Porcine) (Heparin 5000 units/ml) 5,000 units EVERY 12 HOURS SUBQ 02/01/19 21:00 03/03/19 20:59 02/04/19 08:31 Hydralazine HCl (Apresoline) 10 mg Q8HR ORAL 02/01/19 16:00 03/03/19 15:59 02/03/19 13:47 Insulin Aspart (NovoLOG) BEFORE MEALS AND HS SUBQ 02/01/19 16:30 03/03/19 16:29 02/04/19 05:51 Iron Sucrose 100 mg/Sodium Chloride 60 ml @ 240 mls/hr BEDTIME IV 02/04/19 21:00 02/07/19 21:14 Magnesium Oxide (Mag-Ox 400mg) 400 mg THREE TIMES A DAY ORAL 02/03/19 15:45 03/05/19 15:44 02/04/19 08:29 Morphine Sulfate (Morphine Sulfate) 2 mg Q4H PRN IVP PAIN 4-10 02/01/19 15:30 02/08/19 15:29 Nitroglycerin (Ntg) 0.4 mg Q5MIN X 3 DOSES PRN SL Prn Chest Pain 02/01/19 15:45 03/03/19 15:44 Ondansetron HCl (Zofran) 4 mg Q6H PRN IVP Nausea & Vomiting 02/01/19 15:30 03/03/19 15:29 Polyethylene Glycol (Miralax) 17 gm DAILYPRN PRN ORAL Constipation 02/01/19 15:30 03/03/19 15:29 Temazepam (Restoril) 15 mg HSPRN PRN ORAL Insomnia 02/01/19 21:00 02/08/19 20:59 Selin Carias MD Feb 04, 2019 11:02
--- NOTE | 2019-02-04 11:51 | NUR ---
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
[2019-02-04 12:00] VITALS: BP 150/77
--- NOTE | 2019-02-04 13:40 | NUR ---
NURSE NOTES: patient is being prepared for discharge, given report to ELY Enrique from [facility]. Patient has BP 150/77, offered Hydralazine 10mg as ordered but pt refused, even after nurse told her importance to take it for her actual high blood pressure. Taken IV access off, no bleeding noted after site compression. Pt was cleaned by [employer] ENGINEER and placed on diaper. Awaiting EMS for her transportation back to SNF. Left message to baldomero Serna at tel listed on facesheet .
--- NOTE | 2019-02-04 15:23 | Infectious Diseases Prog Note ---
Assessment/Plan Assessment/Plan ASSESSMENT: The patient is an 88-year-old female with: 1. Fever prior to the admission. 2. Normal white blood cells. 3. Probable UTI. -u/a wbc 45-20, nit +, leuk +3; ucx E.coli (R cipro/levo, amp, Genta; otherwise negative 4. Doubt pneumonia (no history of cough). -02/01 CXR: Pulmonary vascular congestion 5. S. epi bacteremia- likely contaminant -02/01 Bcx / S/ epi ; 02/03 Bcx p Diabetes. History of hemiplegia. History of rhabdomyolysis/acute renal injury. Hypertension. Peripheral vascular disease. Dysphagia. Morbid obesity. Dementia. PLAN: 1. Continue Ceftriaxone #2 (abx d #11/04) --upon discharge can be transitioned to PO Macrobid 100mb bid or PO Keflex 500mg bid -02/03 SP IV Vancomycin #3, Cefepime #3 2.f/u Repeat Bcx 3. Monitor CBC. 4. Monitor BMP. 5. Monitor cultures (blood, urine). 6. Monitor chest x-ray. 7. Based on the patient's clinical course and laboratories, we will do further recommendation. Thank you, Dr. De Paz and Dr. Carias, for allowing us to participate in the care of this patient. I will follow this patient during this hospitalization. Subjective Allergies: Coded Allergies: No Known Allergies (Unverified , 04/03/13) Objective Vital Signs Last 24 Hour Vital Signs Date Time Temp Pulse Resp B/P (MAP) Pulse Ox O2 Delivery O2 Flow Rate FiO2 02/04/19 13:39 150/77 02/04/19 12:00 98.3 98 19 150/77 (101) 97 02/04/19 09:00 Room Air 02/04/19 08:31 99 148/82 02/04/19 08:00 98.8 99 20 148/82 (104) 98 02/04/19 07:54 112 20 95 Room Air 21 02/04/19 05:58 157/87 02/04/19 04:00 99.0 106 20 157/87 (110) 98 02/04/19 00:00 97.8 93 16 126/68 (87) 96 02/03/19 21:12 109/76 02/03/19 21:00 Room Air 02/03/19 20:36 102 16 96 Room Air 21 02/03/19 20:00 97.8 79 20 109/76 (87) 95 02/03/19 16:00 98.6 102 20 128/92 (104) 96 Height (Feet): 5 Height (Inches): 5.00 Weight (Pounds): 203 Objective HEENT: Mild pale conjunctivae. No scleral icterus. NECK: No lymphadenopathy. CHEST: Clear. HEART: S1 and S2. ABDOMEN: Soft, obese. EXTREMITIES: No cyanosis at this time. NEUROLOGIC: Nonverbal. Laboratory Tests Test 02/04/19 06:30 White Blood Count 9.6 K/UL (4.8-10.8) Red Blood Count 4.80 M/UL (4.20-5.40) Hemoglobin 11.4 G/DL (12.0-16.0) L Hematocrit 37.9 % (37.0-47.0) Mean Corpuscular Volume 79 FL (80-99) L Mean Corpuscular Hemoglobin 23.7 PG (27.0-31.0) L Mean Corpuscular Hemoglobin Concent 30.0 G/DL (32.0-36.0) L Red Cell Distribution Width 16.0 % (11.6-14.8) H Platelet Count 372 K/UL (150-450) Mean Platelet Volume 4.7 FL (6.5-10.1) L Neutrophils (%) (Auto) 80.5 % (45.0-75.0) H Lymphocytes (%) (Auto) 8.5 % (20.0-45.0) L Monocytes (%) (Auto) 6.4 % (1.0-10.0) Eosinophils (%) (Auto) 4.1 % (0.0-3.0) H Basophils (%) (Auto) 0.5 % (0.0-2.0) Sodium Level 142 MMOL/L (136-145) Potassium Level 3.5 MMOL/L (3.5-5.1) Chloride Level 103 MMOL/L (98-107) Carbon Dioxide Level 27 MMOL/L (21-32) Anion Gap 12 mmol/L (5-15) Blood Urea Nitrogen 14 mg/dL (7-18) Creatinine 1.0 MG/DL (0.55-1.30) Estimat Glomerular Filtration Rate mL/min (>60) Glucose Level 112 MG/DL (74-106) H Calcium Level 9.3 MG/DL (8.5-10.1) Phosphorus Level 2.8 MG/DL (2.5-4.9) Magnesium Level 1.8 MG/DL (1.8-2.4) Total Bilirubin 0.2 MG/DL (0.2-1.0) Aspartate Amino Transf (AST/SGOT) 16 U/L (15-37) Alanine Aminotransferase (ALT/SGPT) 13 U/L (12-78) Alkaline Phosphatase 87 U/L (46-116) Total Protein 8.0 G/DL (6.4-8.2) Albumin 3.5 G/DL (3.4-5.0) Globulin 4.5 g/dL Albumin/Globulin Ratio 0.8 (1.0-2.7) L Current Medications Medications (Trade) Dose Ordered Sig/Samaria Route PRN Reason Start Time Stop Time Status Last Admin Dose Admin Acetaminophen (Tylenol) 650 mg Q4H PRN ORAL T>100.5 02/01/19 15:30 03/03/19 15:29 Albuterol/ Ipratropium (Albuterol/ Ipratropium) 3 ml Q4H PRN HHN Shortness of Breath 02/01/19 15:30 02/06/19 15:29 Amlodipine Besylate (Norvasc) 10 mg DAILY ORAL 02/02/19 09:00 03/04/19 08:59 02/04/19 08:31 Ceftriaxone Sodium 1 gm/ Dextrose 55 ml @ 110 mls/hr Q24H IVPB 02/03/19 17:00 02/10/19 16:59 02/03/19 18:21 Clonidine HCl (Catapres Tab) 0.1 mg Q6H PRN ORAL SBP > 160mmHg 02/01/19 15:30 03/03/19 15:29 02/03/19 13:50 Dextrose (Dextrose 50%) 25 ml Q30M PRN IV Hypoglycemia 02/01/19 15:45 03/03/19 15:34 Dextrose (Dextrose 50%) 50 ml Q30M PRN IV hypoglycemia 02/01/19 15:45 03/03/19 15:44 Heparin Sodium (Porcine) (Heparin 5000 units/ml) 5,000 units EVERY 12 HOURS SUBQ 02/01/19 21:00 03/03/19 20:59 02/04/19 08:31 Hydralazine HCl (Apresoline) 10 mg Q8HR ORAL 02/01/19 16:00 03/03/19 15:59 02/03/19 13:47 Insulin Aspart (NovoLOG) BEFORE MEALS AND HS SUBQ 02/01/19 16:30 03/03/19 16:29 02/04/19 12:45 Iron Sucrose 100 mg/Sodium Chloride 60 ml @ 240 mls/hr BEDTIME IV 02/04/19 21:00 02/07/19 21:14 Magnesium Oxide (Mag-Ox 400mg) 400 mg THREE TIMES A DAY ORAL 02/03/19 15:45 03/05/19 15:44 02/04/19 12:44 Morphine Sulfate (Morphine Sulfate) 2 mg Q4H PRN IVP PAIN 4-10 02/01/19 15:30 02/08/19 15:29 Nitroglycerin (Ntg) 0.4 mg Q5MIN X 3 DOSES PRN SL Prn Chest Pain 02/01/19 15:45 03/03/19 15:44 Ondansetron HCl (Zofran) 4 mg Q6H PRN IVP Nausea & Vomiting 02/01/19 15:30 03/03/19 15:29 Polyethylene Glycol (Miralax) 17 gm DAILYPRN PRN ORAL Constipation 02/01/19 15:30 03/03/19 15:29 Temazepam (Restoril) 15 mg HSPRN PRN ORAL Insomnia 02/01/19 21:00 02/08/19 20:59 Latoya Saini M.D. Feb 04, 2019 15:23
[2019-02-04 16:00] VITALS: BP 135/71
[2019-02-04] MEDS ORDERED: Tubing IV Secondary IV ONE (16:01)
--- NOTE | 2019-02-04 16:06 | NUR ---
NURSE NOTES: patient has been discharged back to [facility], by [facility], report given to JONAS Rolle from [facility]. Going by kalyan, with stable VS, pt has tachycardia HR 105, sat 98% in RA, asymptomatic, baseline HR 90s - low 100s. VS stable, no belongings.
--- NOTE | 2019-02-04 18:30 | Internal Med Progress Note ---
Subjective Physician Name Asad De Paz Attending Physician Asad De Paz MD Allergies: Coded Allergies: No Known Allergies (Unverified , 04/03/13) Subjective awake, responsive, minimally verbal , forgetful and demented. Objective Last Vital Signs Date Time Temp Pulse Resp B/P (MAP) Pulse Ox O2 Delivery O2 Flow Rate FiO2 02/04/19 16:10 105 95 02/04/19 16:00 98.3 16 135/71 (92) 02/04/19 09:00 Room Air 02/04/19 07:54 21 Laboratory Tests Test 02/04/19 06:30 White Blood Count 9.6 K/UL (4.8-10.8) Red Blood Count 4.80 M/UL (4.20-5.40) Hemoglobin 11.4 G/DL (12.0-16.0) L Hematocrit 37.9 % (37.0-47.0) Mean Corpuscular Volume 79 FL (80-99) L Mean Corpuscular Hemoglobin 23.7 PG (27.0-31.0) L Mean Corpuscular Hemoglobin Concent 30.0 G/DL (32.0-36.0) L Red Cell Distribution Width 16.0 % (11.6-14.8) H Platelet Count 372 K/UL (150-450) Mean Platelet Volume 4.7 FL (6.5-10.1) L Neutrophils (%) (Auto) 80.5 % (45.0-75.0) H Lymphocytes (%) (Auto) 8.5 % (20.0-45.0) L Monocytes (%) (Auto) 6.4 % (1.0-10.0) Eosinophils (%) (Auto) 4.1 % (0.0-3.0) H Basophils (%) (Auto) 0.5 % (0.0-2.0) Sodium Level 142 MMOL/L (136-145) Potassium Level 3.5 MMOL/L (3.5-5.1) Chloride Level 103 MMOL/L (98-107) Carbon Dioxide Level 27 MMOL/L (21-32) Anion Gap 12 mmol/L (5-15) Blood Urea Nitrogen 14 mg/dL (7-18) Creatinine 1.0 MG/DL (0.55-1.30) Estimat Glomerular Filtration Rate mL/min (>60) Glucose Level 112 MG/DL (74-106) H Calcium Level 9.3 MG/DL (8.5-10.1) Phosphorus Level 2.8 MG/DL (2.5-4.9) Magnesium Level 1.8 MG/DL (1.8-2.4) Total Bilirubin 0.2 MG/DL (0.2-1.0) Aspartate Amino Transf (AST/SGOT) 16 U/L (15-37) Alanine Aminotransferase (ALT/SGPT) 13 U/L (12-78) Alkaline Phosphatase 87 U/L (46-116) Total Protein 8.0 G/DL (6.4-8.2) Albumin 3.5 G/DL (3.4-5.0) Globulin 4.5 g/dL Albumin/Globulin Ratio 0.8 (1.0-2.7) L Intake and Output 02/03/19 02/04/19 18:59 06:59 Intake Total 55 ml 120 ml Balance 55 ml 120 ml Intake Oral 120 ml IV Total 55 ml # Voids 3 4 Objective GENERAL: awake, responsive to the questions by moaning, cannot follow commands. HEAD AND NECK: Pupils were equal and reactive to light. Anicteric. Neck was supple. No JVD. LUNGS: Good air entry. decrease air at bases, + wheezes. No rhonchi. HEART: S1, S2. Distant heart sounds. No murmur or gallops. ABDOMEN: Soft, nondistended, nontender. Morbidly obese. EXTREMITIES: No cyanosis, clubbing, or edema. NEUROLOGIC: Cranial nerves II through XII grossly intact. The patient is moving all the extremities spontaneously, upper extremity more than lower extremity. Gait was not assessed due to the patient's status. Assessment/Plan Assessment/Plan ASSESSMENT: 1. Sepsis, most likely secondary to sepsis due to the E. coli urinary tract infection. 2. Diabetes type 2. 3. Hypertension. 4. Dementia. 5. Morbid obesity. 6. Fluid overload with pulmonary congestion. 7. Iron deficiency Anemia. 8. History of cerebral aneurysm. 9. Hyperkalemia. PLAN: In Med/Surg. Monitor labs and culture Antibiotic: Rocephin IV Code status: Full Code. DVT prophylaxis: heparin subcu. Dr. Carias, Pulmonary/Critical Care consultation. Dr. Power with ID consultation on Venofer IV DC to SNF today. Asad De Paz MD Feb 04, 2019 18:30
[2019-02-04] MEDS ORDERED: Iron Sucrose 100 MG in NS 55 ML IV SCH (21:00)
--- NOTE | 2019-02-05 09:16 | Discharge Summary ---
Discharge Summary Discharge Summary _ DATE OF ADMISSION: 02/01/2019 DATE OF DISCHARGE: 02/04/[address] De Paz REASON FOR ADMISSION: 88 years old female with past medical history of diabetes mellitus type 2, rhabdomyolysis, acute kidney injury, essential hypertension, peripheral vascular disease, morbid obesity, dementia, dysphagia, history of CVA with hemiplegia, cerebral aneurysm not ruptured, heart failure, presented from the longterm facility for evaluation of fever. Patient received Tylenol at the facility prior to arrival. At baseline patient nonverbal due to CVA and severe dementia and was unable to provide any information. Laboratory work-up revealed no leukocytosis, hemoglobin 10.7, hematocrit 35.9. Platelets 294. Lactic acid 3.5, repeated 3.1. Urinalysis was grossly positive for UTI. Potassium 5.2, BUN 19, creatinine 1.0. Glucose 119. Stable LFT. EKG revealed normal sinus rhythm, no acute ischemic changes. Chest x-ray revealed no acute cardiopulmonary pathology. Patient admitted with sepsis and UTI for further management. CONSULTANTS: pulmonary Dr. Carias ID specialist Dr. Power [facility] COURSE: Patient admitted to medical surgical floor. Patient started on empiric intravenous antibiotic. Blood cultures reveal Staph epidermidis 1 out of 4. Urine culture revealed E. coli. Repeated blood culture on 02/03 were negative. Patient remained afebrile, no leukocytosis Per ID specialist , initial 1 out of 4 blood culture with Staph epidermidis was likely contaminant. Infectious disease specialist recommended continued total treatment for 7 days and upon discharge changed to oral antibiotic to complete the course. Blood pressure was managed with calcium channel vikram and hydralazine. Clonidine was on board as needed. Echocardiogram revealed preserved ejection fraction 55% with mild left ventricular hypertrophy. No evidence of pericardial effusion. No evidence of wall motion abnormality. Right ventricular systolic pressure of 39 consistent with mild pulmonary hypertension. Chest x-ray revealed pulmonary vascular congestion and cardiomegaly. Pro BNP 73. Supplemental oxygen provided as needed to keep pulse oximetry above 92%. Pulse oximetry was stable on room air. DVT prophylaxis provided. Blood sugar was managed with sliding scale of insulin Renal parameters and electrolytes were closely monitored. Electrolytes/magnesium corrected . Prior to discharge magnesium stable. Hemoglobin and hematocrit were closely monitored with goal to keep hemoglobin above 7. Patient received 1 dose of Venofer while in the hospital. Prior to discharge hemoglobin 11.4 , hematocrit 37.9. Supportive care provided. Bowel regimen instituted. Patient clinically stabilized and was ready for transfer back to longterm facility for continuation of care. FINAL DIAGNOSES: Sepsis likely due to UTI UTI Diabetes mellitus type 2 Hypertension Hyperkalemia Iron deficiency anemia History of CVA with dysphagia Peripheral vascular disease Dementia Morbid obesity History of cerebral aneurysm, not ruptured Fluid overload pulmonary congestion DISCHARGE MEDICATIONS: See Medication Reconciliation list. DISCHARGE INSTRUCTIONS: Patient was discharged to the longterm facility. Follow up with medical doctor at the facility. I have been assigned to dictate discharge summary for this account. I was not involved in the patient's management. Kassi Sanchez NP Feb 05, 2019 09:16
== END 2019-02-04 16:20 | DRG 872 ==
LOC: EDBD 11:36 → EMR 12:21 → 4E 12:56 → EDBEDREQ 14:07
DX: A41.9 Sepsis, unspecified organism (principal); N39.0 Urinary tract infection, site not specified; E87.5 Hyperkalemia; Z68.33 Body mass index [BMI] 33.0-33.9, adult; E11.9 Type 2 diabetes mellitus without complications; B96.20 Unspecified Escherichia coli [E. coli] as the cause of diseases classified elsewhere; E87.79 Other fluid overload; E66.01 Morbid (severe) obesity due to excess calories; F03.90 Unspecified dementia, unspecified severity, without behavioral disturbance, psychotic disturbance, mood disturbance, and anxiety; I10 Essential (primary) hypertension; I73.9 Peripheral vascular disease, unspecified; D50.9 Iron deficiency anemia, unspecified; I69.391 Dysphagia following cerebral infarction; R13.10 Dysphagia, unspecified
CPT/HCPCS: 36415; 71045; 80053; 81003; 82378; 82607; 82746; 82962; 83540; 83550; 83605; 83615; 83735; 83880; 84100; 84484; 85007; 85025; 85044; 85060; 85610; 85651; 85730; 86140; 87040; 87081; 87086; 87181; 93005; 93306; 94664; 96361; 96365; 99285; J1815

== ENCOUNTER 2019-08-06 15:26 | Inpatient (IN) | payer MEDICARE, MEDICAID ==
[~2019-08-06] VITALS: Ht 175.3 cm; Wt 91.3 kg
[~2019-08-06 15:26] MED LIST changes: +BACTRIM DS TAB1 EAC1 ORAL
[2019-08-06 15:32] VITALS: BP 150/88
--- NOTE | 2019-08-06 15:32 | NUR ---
ED Nurse Note: PT BROUGHT IN BY AMBULANCE FROM [facility] FOR COUGH AND CONGESTION SINCE YESTERDAY
--- NOTE | 2019-08-06 15:40 | NUR ---
ED Nurse Note: RT at bedside. currently pt on bipap 07/04 ; 40%
[2019-08-06] MEDS ORDERED: Sodium Chloride 2,600 ML IVLG ONE (16:00)
[2019-08-06] MEDS ORDERED: Cefepime HCl 2 GM in NS 110 ML IV ONE (16:00)
[2019-08-06] MEDS ORDERED: Vancomycin 1.5 GM in NS 275 ML IVPB ONE (16:00)
--- NOTE | 2019-08-06 16:10 | NUR ---
ED Nurse Note: blood and urine sample sent down to lab
--- NOTE | 2019-08-06 16:35 | NUR ---
ED Nurse Note: x ray at bedside.
[2019-08-06 16:47] LABS: APPEARANCE,URINE CLEAR; BILIRUBIN, URINE NEGATIVE (NEGATIVE); GLUCOSE, URINE (UA) NEGATIVE (NEGATIVE); KETONES,URINE NEGATIVE (NEGATIVE); LEUKOCYTE ESTERASE ,URINE NEGATIVE (NEGATIVE); NITRITE,URINE NEGATIVE (NEGATIVE); PH,URINE 5 (4.5-8.0); PROTEIN,URINE 2+ (NEGATIVE); UROBILINOGEN,URINE NORMAL MG/DL (0.0-1.0)
[2019-08-06 16:48] LABS: BASOPHILS % (AUTO) 0.3 % (0.0-2.0); EOSINOPHILS % (AUTO) 1.5 % (0.0-3.0); HEMATOCRIT 36.5 % (37.0-47.0); HEMOGLOBIN 11.4 G/DL (12.0-16.0); LYMPHOCYTES % (AUTO) 17.1 % (20.0-45.0); MEAN CORPUSCULAR VOLUME 83 FL (80-99); MONOCYTES % (AUTO) 4.9 % (1.0-10.0); NEUTROPHILS % (AUTO) 76.2 % (45.0-75.0); PLATELET COUNT 265 K/UL (150-450); RED CELL DISTRIBUTION WIDTH 12.4 % (11.6-14.8); WHITE BLOOD COUNT 11.5 K/UL (4.8-10.8)
[2019-08-06 16:50] LABS: COLOR,URINE YELLOW
[2019-08-06 16:50] LABS: ANION GAP 9 mmol/L (5-15); BLOOD UREA NITROGEN 19 mg/dL (7-18); CALCIUM 9.4 MG/DL (8.5-10.1); CARBON DIOXIDE 29 MMOL/L (21-32); CHLORIDE 103 MMOL/L (98-107); SODIUM 141 MMOL/L (136-145)
[2019-08-06 17:06] LABS: ALANINE AMINOTRANSFERASE 21 U/L (12-78); ALBUMIN 3.3 G/DL (3.4-5.0); ALBUMIN/GLOBULIN RATIO 0.6 (1.0-2.7); ALKALINE PHOSPHATASE 101 U/L (46-116); ASPARTATE AMINO TRANSFERASE 14 U/L (15-37); BILIRUBIN,TOTAL 0.2 MG/DL (0.2-1.0); CKMB 0.9 NG/ML (0.0-3.6); CREATINE KINASE 62 U/L (26-308); PHOSPHORUS 2.8 MG/DL (2.5-4.9)
[2019-08-06 18:01] VITALS: BP 144/80
--- NOTE | 2019-08-06 18:53 | NUR ---
RESPIRATORY NOTE: Received pt in ED on BiPAP 07/04, back up rate 12, 40%. Pt on a facial mask, skin intact, no redness/breakdowns noted. Foam tape applied on pt's nosebridge/cheeks/chin to prevent mask irritations. Pt awake/disoriented/responds to stimuli. B/S julianna. diminished, nonproductive cough. BiPAP plugged into red outlet, alarms on & audible.Pt in no apparent distress at this time. Will cotninue to monitor pt.
--- NOTE | 2019-08-06 19:14 | Emergency Room Report ---
History of Present Illness General Chief Complaint: Flu Like Symptoms Source: Patient, Medical Record Present Illness HPI 89-year-old female with a medical history of diabetes hypertension, CVA, TIA, dementia, acute kidney injury, rhabdomyolysis, hemiplegia, cellulitis, dysphasia , heart failure, cerebral aneurysm, altered mental status who presents to the emergency room for respiratory distress, coughing and low energy. History was taken from care home paperwork and EMS as patient is alert and oriented x1. Allergies: Coded Allergies: No Known Allergies (Unverified , 04/03/13) Nursing Documentation-H Past Medical History: No History, Except For Hx Cardiac Problems: Yes - HF, anemia, cerebral neurysm Hx Hypertension: Yes - Hemiplegia, Hemiparesis Hx Asthma: No Hx COPD: No Hx Diabetes: Yes Hx Cancer: No Hx Gastrointestinal Problems: No Hx Dialysis: No Hx Neurological Problems: Yes Hx Cerebrovascular Accident: Yes Hx Dementia: Yes Hx Parkinson's Disease: No Hx Seizures: No Hx Spinal Cord Injury: No Hx Head Trauma: No Hx Traumatic Brain Injury: No Hx Weakness: Yes - BLE Hx Fatigue: Yes Hx Neurologic Surgery: Yes - s/p brain surgery (aneurysm) Review of Systems All Other Systems: limited - dementia Physical Exam Vital Signs Date Time Temp Pulse Resp B/P (MAP) Pulse Ox O2 Delivery O2 Flow Rate FiO2 08/06/19 15:28 97.3 88 20 158/83 (108) 97 Room Air 08/06/19 16:12 40 40 Sp02 EP Interpretation: reviewed General Appearance: well appearing, no apparent distress, non-toxic Head: normocephalic, atraumatic Eyes: bilateral eye normal inspection ENT: hearing grossly normal, EOM grossly intact, moist mucus membranes Neck: supple Respiratory: no respiratory distress, decreased breath sounds, rales - bilaterally, rhonchi, speaking full sentences Cardiovascular #1: regular rate, rhythm, normal capillary refill, edema - 4+, nonpitting Cardiovascular #2: 2+ radial (R), 2+ radial (L) Gastrointestinal: no guarding, no rebound, distended Rectal: deferred Musculoskeletal: moves extm spontaneously, no lower extremity edema Neurologic: grossly normal Psychiatric: mood/affect normal Skin: warm/dry, normal turgor Medical Decision Making ER Course 89-year-old female with a medical history of diabetes hypertension, CVA, TIA, dementia, acute kidney injury, rhabdomyolysis, hemiplegia, cellulitis, dysphasia , heart failure, cerebral aneurysm, altered mental status who presents to the emergency room for respiratory distress, coughing and low energy. History was taken from care home paperwork and EMS as patient is alert and oriented x1. exam noted to have bilateral rales. LE edema, abd distention. Pt clinically noted to be fluid overload, did not given entire sepsis bolus as pt with persistent rales after 500cc. Pt placed on BIPAP. Laboratory Tests Test 08/06/19 15:55 08/06/19 16:07 08/06/19 16:20 Arterial Blood pH 7.376 (7.350-7.450) Arterial Blood Partial Pressure CO2 46.3 mmHg (35.0-45.0) H Arterial Blood Partial Pressure O2 115.7 mmHg (75.0-100.0) H Arterial Blood HCO3 26.5 mmol/L (22.0-26.0) H Arterial Blood Oxygen Saturation 97.8 % (95-100) Arterial Blood Base Excess 0.9 (-2-2) Ha Test Positive White Blood Count 11.5 K/UL (4.8-10.8) H Red Blood Count 4.40 M/UL (4.20-5.40) Hemoglobin 11.4 G/DL (12.0-16.0) L Hematocrit 36.5 % (37.0-47.0) L Mean Corpuscular Volume 83 FL (80-99) Mean Corpuscular Hemoglobin 25.9 PG (27.0-31.0) L Mean Corpuscular Hemoglobin Concent 31.2 G/DL (32.0-36.0) L Red Cell Distribution Width 12.4 % (11.6-14.8) Platelet Count 265 K/UL (150-450) Mean Platelet Volume 5.3 FL (6.5-10.1) L Neutrophils (%) (Auto) 76.2 % (45.0-75.0) H Lymphocytes (%) (Auto) 17.1 % (20.0-45.0) L Monocytes (%) (Auto) 4.9 % (1.0-10.0) Eosinophils (%) (Auto) 1.5 % (0.0-3.0) Basophils (%) (Auto) 0.3 % (0.0-2.0) Sodium Level 141 MMOL/L (136-145) Potassium Level 4.0 MMOL/L (3.5-5.1) Chloride Level 103 MMOL/L (98-107) Carbon Dioxide Level 29 MMOL/L (21-32) Anion Gap 9 mmol/L (5-15) Blood Urea Nitrogen 19 mg/dL (7-18) H Creatinine 1.0 MG/DL (0.55-1.30) Estimate Glomerular Filtration Rate mL/min (>60) Glucose Level 292 MG/DL (74-106) H Lactic Acid Level 1.90 mmol/L (0.4-2.0) Calcium Level 9.4 MG/DL (8.5-10.1) Phosphorus Level 2.8 MG/DL (2.5-4.9) Magnesium Level 2.2 MG/DL (1.8-2.4) Total Bilirubin 0.2 MG/DL (0.2-1.0) Aspartate Amino Transferase (AST) 14 U/L (15-37) L Alanine Aminotransferase (ALT) 21 U/L (12-78) Alkaline Phosphatase 101 U/L (46-116) Total Creatine Kinase 62 U/L (26-308) Creatine Kinase MB 0.9 NG/ML (0.0-3.6) Creatine Kinase MB Relative Index 1.4 Troponin I 0.000 ng/mL (0.000-0.056) Pro-B-Type Natriuretic Peptide 98 pg/mL (0-125) Total Protein 8.8 G/DL (6.4-8.2) H Albumin 3.3 G/DL (3.4-5.0) L Globulin 5.5 g/dL Albumin/Globulin Ratio 0.6 (1.0-2.7) L Lipase 180 U/L (73-393) Urine Color Yellow Urine Appearance Clear Urine pH 5 (4.5-8.0) Urine Specific [place] 1.015 (1.005-1.035) Urine Protein 2+ (NEGATIVE) H Urine Glucose (UA) Negative (NEGATIVE) Urine Ketones Negative (NEGATIVE) Urine Blood Negative (NEGATIVE) Urine Nitrite Negative (NEGATIVE) Urine Bilirubin Negative (NEGATIVE) Urine Urobilinogen Normal MG/DL (0.0-1.0) Urine Leukocyte Esterase Negative (NEGATIVE) Urine RBC 0-2 /HPF (0 - 2) Urine WBC 2-4 /HPF (0 - 2) Urine Squamous Epithelial Cells Few /LPF (NONE/OCC) Urine Bacteria Moderate /HPF (NONE) H Urine Coarse Granular Casts 2-4 /LPF (NONE) H Microbiology Date/Time Source Procedure Growth Status 08/06/19 16:42 Nasal Nares - Final Complete 08/06/19 16:42 Nasal Nares - Final Complete EKG Diagnostic Results EKG Time: 16:26 EP Interpretation: 88 Rate: normal ST Segments: no acute changes Chest X-Ray Diagnostic Results Chest X-Ray Diagnostic Results : Chest X-Ray Ordered: Yes # of Views/Limited/Complete: 1 View Indication: Shortness of Breath Interpretation: other - increased vascular congestion bialterally. no effusion.consolidation Last Vital Signs Date Time Temp Pulse Resp B/P (MAP) Pulse Ox O2 Delivery O2 Flow Rate FiO2 08/06/19 18:50 87 19 100 Facial 40 08/06/19 15:32 97.3 150/88 Reevaluation Impression Pt case discussed with Dr Wei, pt admitted for further work up Disposition: ADMITTED INPATIENT Referrals: Selin Carias MD (PCP) Giovany Quinones M.D. Aug 06, 2019 19:14
[2019-08-06 20:09] VITALS: BP 149/95
--- NOTE | 2019-08-06 21:45 | NUR ---
ED Nurse Note: PT BROUGHT UP TO TELEMETRY FLOOR ACCOMPANIED BY INNER TUBE TUBER MACHINE OPERATOR, RT, AND RN VIA MONITOR BOX IN STABLE CONDITION. IV SITE TO RIGHT AC REMAIN INTACT. REPORT GIVEN TO ELY PAUL. BELONGING LIST SIGNED OFF.
[2019-08-06 21:55] VITALS: BP 129/90
--- NOTE | 2019-08-06 21:55 | NUR ---
NURSE NOTES: Received report from ELY Collins. Patient was transferred from ED to Telemetry via gurney accompanied by 3 staff member without any incident. Patient was transferred to hospital bed via draw sheet by 3 staff member. Patient is awake, nonverbal, lying in semi arita's; resting comfortably. No signs of acute distress nor pain noted. Patient was placed on tele box, SR on the monitor, 90 bpm. Body assessment done with no skin issues. With beach catheter draining well to gravity. Belongings list checked by transferring RN. Bed at lowest position, brakes on, siderailsx3. Call light within reach. Will continue to monitor. Paged Dr. Carias for admitting orders, awaiting for callback.
--- NOTE | 2019-08-06 22:30 | NUR ---
NURSE NOTES: Paged Dr. Carias for admitting orders, awaiting for callback.
--- NOTE | 2019-08-06 23:23 | NUR ---
NURSE NOTES: Paged Dr. Carias for admitting orders. Awaiting for callback.
[2019-08-07] VITALS: BP 143/83
--- NOTE | 2019-08-07 | NUR ---
NURSE NOTES: Paged Dr. Carias for admitting orders, awaiting for callback.
--- NOTE | 2019-08-07 01:15 | NUR ---
NURSE NOTES: Paged Dr. Carias for admitting orders, awaiting for callback. CN made aware
--- NOTE | 2019-08-07 02:00 | NUR ---
NURSE NOTES: Paged Dr. Carias for admitting orders. Awaiting for callback. .
--- NOTE | 2019-08-07 03:00 | NUR ---
NURSE NOTES: Paged Dr. Carias for admitting orders. Awaiting for callback. Addendum: 08/07/19 at 0406 by Brenda Lainez RN CN and nurse tumblers supervisor made aware.
--- NOTE | 2019-08-07 03:17 | NUR ---
NURSE NOTES: Bridging orders done by ED doctor. Noted and carried out. Dr. Carias made aware.
[2019-08-07] MEDS ORDERED: Morphine Sulfate 2mg/ml Inj(IV/IM USE ONLY) IVP PRN (03:30)
[2019-08-07 04:00] VITALS: BP 149/69
[2019-08-07] MEDS ORDERED: Levemir Flexpen SUBQ SCH (06:30)
[2019-08-07] MEDS ORDERED: NovoLOG Insulin Flexpen SUBQ SCH (06:30)
--- NOTE | 2019-08-07 06:40 | NUR ---
NURSE NOTES: Per Dr. Carias to continue home meds. Noted and carried out. Dr. Carias made aware of patient's BS 159.
--- NOTE | 2019-08-07 07:00 | NUR ---
HAND-OFF: Report given to ELY Beck. Plan of care endorsed.
--- NOTE | 2019-08-07 07:33 | NUR ---
NURSE NOTES: Received report from ELY Gutierrez. Patient in bed resting, no active s/s cardiac, respiratory distress noticed at this time. Patient AOx1, open eyes spontaneously, SR with HR 94, 3L oxygen via NC. IV on right AC 20G, asymptomatic, patent, intact. Endorsed MD aware of no diet order at this time, awaiting for callback. Bed in lowest position, side rails upx2, call light within reach. Will continue to monitor.
[2019-08-07 08:00] VITALS: BP 150/78
[2019-08-07] MEDS: Aspirin EC 81mg tab ORAL SCH (08:25)
[2019-08-07] MEDS: HydrALAZINE 10mg Tab ORAL SCH (08:26)
[2019-08-07] MEDS: Levemir Flexpen SUBQ SCH (08:30)
[2019-08-07] MEDS ORDERED: metFORMIN 500mg tab ORAL SCH (09:00)
[2019-08-07] MEDS: Heparin 5000 units/ml inj SUBQ SCH ×2 (11:09→21:24)
[2019-08-07] MEDS: NovoLOG Insulin Flexpen SUBQ SCH ×3 (11:30→21:24)
[2019-08-07 12:00] VITALS: BP 129/69
[2019-08-07] MEDS ORDERED: Varibar Pudding 230ml MC PRN (12:30)
[2019-08-07] MEDS ORDERED: Varibar Nectar 240ml MC PRN (12:30)
[2019-08-07] MEDS ORDERED: Varibar Honey 250ml MC PRN (12:30)
[2019-08-07] MEDS ORDERED: Varibar Thin Liquid powder 148gm MC PRN (12:30)
--- NOTE | 2019-08-07 13:54 | Consultation ---
History of Present Illness General Date patient seen: Aug 07, 2019 Chief Complaint: Flu Like Symptoms Present Illness HPI 89-year-old female with hx of DM, HTN, CVA/TIA, dementia, [facility] resident presented to ED for evaluation of dyspnea and cough. Patient is usually nonverbal at baseline unable to provide any additional history at this time. No reported signs of distress. No other aggravating relieving factors. No other associated symptoms. Maria C CXR was clear. She had some pyuria. Pt was diagnosed to have urosepsis and is admitted for further management. Allergies: Coded Allergies: No Known Allergies (Unverified , 04/03/13) Medication History Scheduled Amlodipine Besylate (Norvasc), 10 MG ORAL DAILY, (Reported) Amoxicillin/Potassium Clav 875-125* (Augmentin 875-125 Tablet*), 1 TAB ORAL TWICE A DAY Aspirin (Ecotrin), 81 MG ORAL DAILY Aspirin* (Aspirin*), 325 MG ORAL DAILY, (Reported) Ceftriaxone Sod (Ceftriaxone 1 gm-D5w Bag), 1 GM IVPB DAILY Cephalexin* (Keflex*), 500 MG ORAL EVERY 12 HOURS Ciprofloxacin Hcl* (Ciprofloxacin Hcl*), 500 MG ORAL Q12H Ferrous Sulfate* (Ferrous Sulfate*), 325 MG ORAL DAILY, (Reported) Gentamicin/Sod Chl (Iso Gentamicin 120 mg/100 ml), 120 MG IM TID Hydralazine Hcl* (Hydralazine Hcl*), 20 MG ORAL DAILY, (Reported) Insulin Aspart (Novolog Flexpen), 0 UNITS SUBQ BEFORE MEALS AND HS Insulin Detemir (Levemir Flexpen), 6 UNITS SUBQ Q24H Levofloxacin* (Levaquin*), 500 MG ORAL DAILY Metformin Hcl* (Metformin Hcl*), 1,000 MG ORAL BID, (Reported) Trimethoprim/Sulfamethoxazole (Bactrim Ds Tablet), 2 EA ORAL EVERY 12 HOURS Trimethoprim/Sulfamethoxazole 160/800* (Bactrim Ds Tablet*), 1 TAB ORAL TWICE A DAY [Insuilin Detemir pen], 15 UNITS SUBQ QHS, (Reported) Scheduled PRN Acetaminophen (Acetaminophen), 650 MG ORAL Q6H PRN for For Pain, (Reported) Bisacodyl (Dulcolax), 10 MG RC DAILY PRN for Constipation, (Reported) Clonidine Hcl* (Catapres*), 0.1 MG ORAL EVERY 6 HOURS PRN for For High Blood Pressure, (Reported) Magnesium Hydroxide* (Milk Of Magnesia*), 30 ML ORAL DAILY PRN for Constipation, (Reported) Na Phos,M-B/Na Phos,Di-Ba* (Fleet Enema*), 133 ML RECTAL every 3 days PRN for Constipation, (Reported) Polyethylene Glycol* (Miralax*), 17 GM ORAL HSPRN PRN for Constipation [Robitussin DM], 5 ML PO Q6HR PRN for For Cough, (Reported) Patient History Healthcare decision maker Resuscitation status Full Code Advanced Directive on File Past Medical/Surgical History Past Medical/Surgical History: (1) Advanced dementia (2) Congestive heart failure (CHF) (3) HTN (hypertension) (4) DM (diabetes mellitus) Review of Systems All Other Systems: negative except mentioned in HPI Physical Exam General Appearance: WD/WN Lines, tubes and drains: peripheral HEENT: normocephalic, atraumatic Neck: non-tender, normal alignment Respiratory/Chest: chest wall non-tender, lungs clear Breasts: no masses Cardiovascular/Chest: normal peripheral pulses Abdomen: normal bowel sounds, hyperactive bowel sounds Genitourinary/Rectal: decreased rectal tone Extremities: normal range of motion Neurologic: vice president consulting services II-XII grossly normal Lymphatic: anterior cervical Last 24 Hour Vital Signs Date Time Temp Pulse Resp B/P (MAP) Pulse Ox O2 Delivery O2 Flow Rate FiO2 08/07/19 12:00 97.3 91 18 129/69 (89) 94 08/07/19 12:00 75 08/07/19 12:00 3.0 08/07/19 09:00 Nasal Cannula 3.0 08/07/19 08:26 150/78 08/07/19 08:25 98 150/78 08/07/19 08:00 97.5 98 18 150/78 (102) 96 08/07/19 08:00 92 08/07/19 08:00 3.0 08/07/19 04:00 97.5 94 18 149/69 (95) 97 08/07/19 04:00 98 08/07/19 04:00 3.0 08/07/19 00:00 97.9 90 20 143/83 (103) 99 08/07/19 00:00 93 08/07/19 00:00 3.0 08/06/19 22:42 Nasal Cannula 3.0 08/06/19 22:00 90 08/06/19 21:55 97.8 102 20 129/90 (103) 97 08/06/19 21:45 97.9 88 17 148/82 100 Bi-pap 40 08/06/19 20:34 95 17 99 Facial 40 08/06/19 20:09 97.6 83 17 149/95 100 Bi-pap 40 08/06/19 18:50 87 19 100 Facial 40 08/06/19 18:01 97.9 90 17 144/80 100 Bi-pap 40 08/06/19 16:12 92 16 99 Facial 40 Bi-Pap 40 08/06/19 15:32 85 20 Room Air 08/06/19 15:32 97.3 85 20 150/88 97 Room Air 08/06/19 15:28 97.3 88 20 158/83 (108) 97 Room Air Intake and Output 08/06/19 08/07/19 19:00 07:00 Intake Total 1247.5 ml 1137.5 ml Output Total 1700 ml Balance 1247.5 ml -562.5 ml Intake IV Total 1247.5 ml 1137.5 ml Output Urine Total 1700 ml # Bowel Movements 1 Laboratory Tests Test 08/06/19 15:55 08/06/19 16:07 08/06/19 16:20 Arterial Blood pH 7.376 (7.350-7.450) Arterial Blood Partial Pressure CO2 46.3 mmHg (35.0-45.0) H Arterial Blood Partial Pressure O2 115.7 mmHg (75.0-100.0) H Arterial Blood HCO3 26.5 mmol/L (22.0-26.0) H Arterial Blood Oxygen Saturation 97.8 % (95-100) Arterial Blood Base Excess 0.9 (-2-2) Ha Test Positive White Blood Count 11.5 K/UL (4.8-10.8) H Red Blood Count 4.40 M/UL (4.20-5.40) Hemoglobin 11.4 G/DL (12.0-16.0) L Hematocrit 36.5 % (37.0-47.0) L Mean Corpuscular Volume 83 FL (80-99) Mean Corpuscular Hemoglobin 25.9 PG (27.0-31.0) L Mean Corpuscular Hemoglobin Concent 31.2 G/DL (32.0-36.0) L Red Cell Distribution Width 12.4 % (11.6-14.8) Platelet Count 265 K/UL (150-450) Mean Platelet Volume 5.3 FL (6.5-10.1) L Neutrophils (%) (Auto) 76.2 % (45.0-75.0) H Lymphocytes (%) (Auto) 17.1 % (20.0-45.0) L Monocytes (%) (Auto) 4.9 % (1.0-10.0) Eosinophils (%) (Auto) 1.5 % (0.0-3.0) Basophils (%) (Auto) 0.3 % (0.0-2.0) Sodium Level 141 MMOL/L (136-145) Potassium Level 4.0 MMOL/L (3.5-5.1) Chloride Level 103 MMOL/L (98-107) Carbon Dioxide Level 29 MMOL/L (21-32) Anion Gap 9 mmol/L (5-15) Blood Urea Nitrogen 19 mg/dL (7-18) H Creatinine 1.0 MG/DL (0.55-1.30) Estimat Glomerular Filtration Rate mL/min (>60) Glucose Level 292 MG/DL (74-106) H Lactic Acid Level 1.90 mmol/L (0.4-2.0) Calcium Level 9.4 MG/DL (8.5-10.1) Phosphorus Level 2.8 MG/DL (2.5-4.9) Magnesium Level 2.2 MG/DL (1.8-2.4) Total Bilirubin 0.2 MG/DL (0.2-1.0) Aspartate Amino Transf (AST/SGOT) 14 U/L (15-37) L Alanine Aminotransferase (ALT/SGPT) 21 U/L (12-78) Alkaline Phosphatase 101 U/L (46-116) Total Creatine Kinase 62 U/L (26-308) Creatine Kinase MB 0.9 NG/ML (0.0-3.6) Creatine Kinase MB Relative Index 1.4 Troponin I 0.000 ng/mL (0.000-0.056) Pro-B-Type Natriuretic Peptide 98 pg/mL (0-125) Total Protein 8.8 G/DL (6.4-8.2) H Albumin 3.3 G/DL (3.4-5.0) L Globulin 5.5 g/dL Albumin/Globulin Ratio 0.6 (1.0-2.7) L Lipase 180 U/L (73-393) Urine Color Yellow Urine Appearance Clear Urine pH 5 (4.5-8.0) Urine Specific [place] 1.015 (1.005-1.035) Urine Protein 2+ (NEGATIVE) H Urine Glucose (UA) Negative (NEGATIVE) Urine Ketones Negative (NEGATIVE) Urine Blood Negative (NEGATIVE) Urine Nitrite Negative (NEGATIVE) Urine Bilirubin Negative (NEGATIVE) Urine Urobilinogen Normal MG/DL (0.0-1.0) Urine Leukocyte Esterase Negative (NEGATIVE) Urine RBC 0-2 /HPF (0 - 2) Urine WBC 2-4 /HPF (0 - 2) Urine Squamous Epithelial Cells Few /LPF (NONE/OCC) Urine Bacteria Moderate /HPF (NONE) H Urine Coarse Granular Casts 2-4 /LPF (NONE) H Microbiology Date/Time Source Procedure Growth Status 08/06/19 16:42 Nasal Nares - Final Complete 08/06/19 16:42 Nasal Nares - Final Complete 08/06/19 16:20 Indwelling Cath Urine Culture - Preliminary NO GROWTH Resulted Height (Feet): 5 Height (Inches): 9.00 Weight (Pounds): 204 Medications Current Medications Medications (Trade) Dose Ordered Sig/[place] Route PRN Reason Start Time Stop Time Status Last Admin Dose Admin Acetaminophen (Tylenol) 650 mg Q6H PRN ORAL For Pain 08/07/19 06:30 09/06/19 06:29 Amlodipine Besylate (Norvasc) 10 mg DAILY ORAL 08/07/19 09:00 09/06/19 08:59 08/07/19 08:25 Aspirin (Ecotrin) 81 mg DAILY ORAL 08/07/19 09:00 09/06/19 08:59 08/07/19 08:25 Barium Sulfate (Varibar Honey) 250 ml NOW PRN MC RAD 08/07/19 12:30 08/10/19 12:29 Barium Sulfate (Varibar [place]) 240 ml NOW PRN MC RAD 08/07/19 12:30 08/10/19 12:24 Barium Sulfate (Varibar Pudding) 230 ml NOW PRN RAD 08/07/19 12:30 08/10/19 12:24 Barium Sulfate (Varibar Thin Liquid powder) 148 gm NOW PRN RAD 08/07/19 12:30 08/10/19 12:24 Clonidine HCl (Catapres Tab) 0.1 mg Q6H PRN ORAL PRN SBP>160 08/07/19 09:00 09/06/19 08:44 Dextrose (Dextrose 50%) 25 ml Q30M PRN IV Hypoglycemia 08/07/19 08:30 09/06/19 08:29 Dextrose (Dextrose 50%) 50 ml Q30M PRN IV Hypoglycemia 08/07/19 08:30 09/06/19 08:29 Ferrous Sulfate (Feosol) 325 mg DAILY ORAL 08/07/19 09:00 09/06/19 08:59 08/07/19 08:25 Heparin Sodium (Porcine) (Heparin 5000 units/ml) 5,000 units EVERY 12 HOURS SUBQ 08/07/19 10:15 09/06/19 10:14 08/07/19 11:09 Hydralazine HCl (Apresoline) 20 mg DAILY ORAL 08/07/19 09:00 09/06/19 08:59 08/07/19 08:26 Insulin Aspart (NovoLOG) BEFORE MEALS AND HS SUBQ 08/07/19 11:30 09/06/19 11:29 Insulin Detemir (Levemir) 6 units Q24H SUBQ 08/07/19 09:00 09/06/19 08:59 08/07/19 08:30 Assessment/Plan Problem List: (1) UTI (urinary tract infection) ICD Codes: N39.0 - UTI (urinary tract infection) SNOMED: 43899007 (2) Advanced dementia ICD Codes: F03.90 - Unspecified dementia without behavioral disturbance SNOMED: 81458673 (3) DM (diabetes mellitus) ICD Codes: E11.9 - DM (diabetes mellitus) SNOMED: 10066712 (4) HTN (hypertension) ICD Codes: I10 - Essential (primary) hypertension SNOMED: 54096320 Assessment/Plan: conn culture iv abx check electrolytes sliding scale swallow evaluation dvt prophylaxis Selin Carias MD Aug 07, 2019 13:54
--- NOTE | 2019-08-07 14:05 | NUR ---
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 PER POLST OK TO HAVE TRIAL TUBE FEEDINGS. AT SNF ON PUREED AND THIN LIQUIDS. NOW IS NPO EXCEPT MEDS/ICE CHIPS. PER RD OK TO LIBERALIZE DIET AND GLUCERNA TID. RD TO PUT IN TF RECOMMENDATIONS. ALERT BUT NONVERBAL. WILL NOD YES TO SOME QUESTIONS LIKE DOES SHE WANT SOME WATER BUT THEN WILL REFUSE SOME PO TRIALS. POOR ABILITY TO FOLLOW COMMANDS EVEN WITH VISUAL CUES (MAY ALSO BE BEHAVIORAL). BARREL LATHE OPERATOR OUTSIDE SET UP SUCTION SINCE RT/RN NOT AVAILABLE. INITIAL IMPRESSIONS: S/S OF DYSPHAGIA WITH OWN ORAL SECRETIONS BACK OF THROAT AND BILATERAL SIDES (MILD AMOUNTS MILDLY THICK CLEAR SECRETIONS) AND DISLIKES SUCTION. GIVEN TSP WATER AND NECTAR THICK WATER SWALLOWED AFTER 4-5 SECONDS (FAIR HYOLARYNGEAL EXCURSION) AND COUGHED AFTER THE SWALLOW. PER RN, TOOK CRUSHED MEDS WITH APPLESAUCE TAKES LONGER OROPHARYNGEAL TRANSIT TIMES UP TO 10 SECONDS. TENDS TO REFUSED PO TRIALS AND ORAL SUCTION. HAS VERY STRONG LIP AND JAW CLOSURE APPEARS VOLITIONAL AND BEHAVIORAL. HIGH SILENT ASPIRATION RISK DUE TO CVA/DEMENTIA/BRAIN SURGERY/ANEURYSM DIAGNOSES. RECOMMENDATIONS: CONSIDER KEEPING HER NPO (INCLUDES NO ORAL MEDS) AND INITIATE NONORAL FEEDINGS (AT LEAST TEMPORARILY) WITH 12 H[address] K[address]ER NGT AND ORAL CARE/SUCTION IF SHE ALLOWS (CONSIDER DEEP NASAL SUCTION IF NEEDED) WILL CHECK DAILY TO MASH PREPARATORY OPERATOR TO MODIFIED BARIUM SWALLOW STUDY TO FURTHER ASSESS SWALLOW, DETERMINE SILENT ASPIRATION RISK/ETIOLOGY, AND ATTEMPT TRIAL TX TECHNIQUES. SKILLED DYSPHAGIA MANAGEMENT AND TX AND COG-COM EVAL/TX EDUCATED/TRAINED STAFF IN POSTED PRECAUTIONS D/W DR BALL WHO AGREES WITH RECOMMENDATIONS
--- NOTE | 2019-08-07 14:42 | Diagnostic Imaging Report ---
Indication: Dyspnea Comparison: 02/01/2019 A single view chest radiograph was obtained. Findings: Bronchovascular markings are somewhat prominent as is heart size but lung volumes are low. Bones are osteopenic. IMPRESSION: Limited evaluation. Query mild pulmonary vascular congestion
--- NOTE | 2019-08-07 14:52 | NUR ---
RD ASSESSMENT & RECOMMENDATIONS SEE CARE ACTIVITY FOR COMPLETE ASSESSMENT DAILY ESTIMATED NEEDS: Needs based on DM, CHF 65.8kg abw 25-30kcal/kg kcals/kg 1575-1890kcal total kcals 1-1.5g/kg g protein/kg 66-99 g total protein 20-25 mL/kg 3039-9369 total fluid mLs NUTRITION DIAGNOSIS: Swallowing difficulty R/T dysphagia, h/o CVA/TIA, dementia as evidenced by CONTRACT SPECIALIST recommends NPO, nonoral feeding at this time. CURRENT DIET:NPO ENTERAL NUTRITION RECOMMENDATIONS: Glucerna 1.5 @ 45ml/hr x 24 hrs to provide 1080ml, 1620kcal, 89g prot, 820ml free water * W/ GI accees, initiate Glucerna 1.5 @ 15ml/hr x 6 hrs * Advance 10ml q 4-6 hrs as tolerated to goal rate * HOB over 30 degrees * Without IVF, H20 flush of 150ml q 6 hrs ADDITIONAL RECOMMENDATIONS: * Calibrated bedscale wt per SNF, mh=217jig in Jul 2019 * Monitor POC: NGT feeds? oral diet? * W/ oral diet: rec liberalized regular/ texture per CONTRACT SPECIALIST w/ poor PO w/ PO intake consistently >50%, add Low Na + CCHO Med * Monitor lytes daily w/ TF, replete as needed * Monitor BGs/ hypoglycemia while pt NPO
--- NOTE | 2019-08-07 15:50 | NUR ---
NURSE NOTES: Per Dr. Carias, NPO at this time, insert NGT for feeding. MD made aware patient observed to removing device, okay for bilateral soft wrist restraints. Family member at the bedside made aware because of pulling out devices and importance of nutrition, we need soft wrist restraints. Order noted, entered, carried out. Will continue to monitor.
--- NOTE | 2019-08-07 15:55 | NUR ---
CASE MANAGEMENT:REVIEW 89 YR OLD FEMALE BIBA FROM [facility] SI: CHF 97.3 88 20 158/83 97% ON RA WBC+11.5 PCO2+46.3 IS: PLACED ON BIPAP IV VANCOMYCIN IV CEFEPIME 2L NS URINE CX CXR BLOOD CX : TO TELEMETRY
[2019-08-07 16:00] VITALS: BP 134/62
--- NOTE | 2019-08-07 16:59 | NUR ---
NURSE NOTES: AC insulin not given for pending x-ray for placement of NGT.
[2019-08-07] MEDS ORDERED: ACETAMINOPHEN325 M1 ORAL (18:23)
[2019-08-07] MEDS ORDERED: HYDRALAZINE HCL10 MG ORAL (18:23)
[2019-08-07] MEDS ORDERED: LEVEMIR FL100 UNIT/1 SUBQ ×2 (18:23→18:26)
[2019-08-07] MEDS ORDERED: MULTIVITAMINS1 EAC8 ORAL (18:31)
--- NOTE | 2019-08-07 19:33 | NUR ---
HAND-OFF: Report given to ELY Martinez.
--- NOTE | 2019-08-07 19:41 | NUR ---
NURSE NOTES: Received report from ELY Beck. Patient is awake lying semi-arita's; resting comfortably. No signs of acute distress noted; denies pain at this time. AOx1-2; unable to verbalize needs, but follows commands. Aphasic. Checked IV site; patent and flushed. No erythema, bleeding, or infiltration noted. Left nare NG tube in place. Glucerna 1.5 running at 15 mls/hr for a goal of 45 mls/hr. Shaver catheter draining well to gravity. Bed at lowest position, brakes on, siderails up x3. Call light within reach. Will continue to monitor.
[2019-08-07 20:00] VITALS: BP 154/91
[2019-08-08] VITALS (7 sets, daily range): BP systolic 136–158; BP diastolic 76–90
--- NOTE | 2019-08-08 02:07 | NUR ---
NURSE NOTES: Patient noted to have pulled out NG tube. Will notify Dr. Carias.
--- NOTE | 2019-08-08 05:11 | NUR ---
NURSE NOTES: Notified Dr. Carias regarding patient noted to have pulled out her NG tube earlier. Awaiting callback.
[2019-08-08] MEDS: NovoLOG Insulin Flexpen SUBQ SCH ×4 (06:24→21:17)
--- NOTE | 2019-08-08 07:26 | NUR ---
HAND-OFF: Report given to ELY Sanchez. Patient is asleep lying semi-arita's; resting comfortably. On 2L nasal cannula. Shaver catheter draining well to gravity. In stable condition.
--- NOTE | 2019-08-08 08:22 | NUR ---
NURSE NOTES: Received patient from Praveen Martinez. Patient is resting comfortably in bed. No signs and symptoms of distress. NGT out awaiting callback from Dr. Carias for orders. Fall precautions in place. B/L wrist restraints in place. Call reid within reach. Will follow.
[2019-08-08] MEDS: Heparin 5000 units/ml inj SUBQ SCH ×2 (10:22→21:17)
--- NOTE | 2019-08-08 10:29 | Diagnostic Imaging Report ---
Indication: Post nasogastric tube placement Technique: Supine view of the abdomen Comparison: none Findings: There is a nasogastric tube in place, tip of which projects at the level gastric antrum body junction. Bowel gas pattern is unremarkable. No masses or unusual calcifications. There is a Shaver catheter Impression: Satisfactory nasogastric intubation
[2019-08-08] MEDS: HydrALAZINE 10mg Tab ORAL SCH (10:51)
[2019-08-08] MEDS: Aspirin EC 81mg tab ORAL SCH (10:57)
[2019-08-08] MEDS: Levemir Flexpen SUBQ SCH (10:58)
--- NOTE | 2019-08-08 11:00 | Consultation ---
History of Present Illness General Date patient seen: Aug 08, 2019 Chief Complaint: Flu Like Symptoms Reason for Consultation: UTI Present Illness HPI Ms. Tolentino is an 89 yo male with PMHx of Dementia, DM, HTN, CHD and CVA/TIA who presented from her retirement with cough and SOB. Today she reports feeling well and does not know why she was brought to the hospital. In the ED she was Aferbile with WBCs of 11. Her UA was positive. ID was consulted for UTI PMHx/PSHx Dementia DM HTN CVA/TIA CHF SocHx: Unable to Obtain FamHx: Unable to Obtain Allergies: Coded Allergies: No Known Allergies (Unverified , 04/03/13) Medication History Scheduled Amlodipine Besylate (Norvasc), 5 MG ORAL DAILY, (Reported) Aspirin (Ecotrin), 81 MG ORAL DAILY Hydralazine Hcl* (Hydralazine Hcl*), 20 MG ORAL DAILY, (Reported) Insulin Aspart (Novolog Flexpen), 0 UNITS SUBQ BEFORE MEALS AND HS Insulin Detemir (Levemir Flexpen), 15 SUBQ BEDTIME, (Reported) Insulin Detemir (Levemir Flexpen), 6 SUBQ MORNING, (Reported) Multivitamin With Minerals (Multivitamins With Minerals*), 1 TAB ORAL DAILY, ( Reported) Scheduled PRN Acetaminophen* (Acetaminophen 325MG Tablet*), 650 MG ORAL Q6H PRN for For Pain, (Reported) Clonidine Hcl* (Catapres*), 0.1 MG ORAL EVERY 6 HOURS PRN for For High Blood Pressure, (Reported) Discontinued Medications Acetaminophen (Acetaminophen), 650 MG ORAL Q6H PRN for For Pain, (Reported) Discontinued Reason: Prescription changed Amoxicillin/Potassium Clav 875-125* (Augmentin 875-125 Tablet*), 1 TAB ORAL TWICE A DAY Discontinued Reason: Therapy completed Aspirin* (Aspirin*), 325 MG ORAL DAILY, (Reported) Discontinued Reason: Therapy completed Bisacodyl (Dulcolax), 10 MG RC DAILY PRN for Constipation, (Reported) Discontinued Reason: Therapy completed Ceftriaxone Sod (Ceftriaxone 1 gm-D5w Bag), 1 GM IVPB DAILY Discontinued Reason: Therapy completed Cephalexin* (Keflex*), 500 MG ORAL EVERY 12 HOURS Discontinued Reason: Therapy completed Ciprofloxacin Hcl* (Ciprofloxacin Hcl*), 500 MG ORAL Q12H Discontinued Reason: Therapy completed Ferrous Sulfate* (Ferrous Sulfate*), 325 MG ORAL DAILY, (Reported) Discontinued Reason: Therapy completed Gentamicin/Sod Chl (Iso Gentamicin 120 mg/100 ml), 120 MG IM TID Discontinued Reason: Therapy completed Hydralazine Hcl* (Hydralazine Hcl*), 20 MG ORAL DAILY, (Reported) Discontinued Reason: Prescription changed Insulin Detemir (Levemir Flexpen), 6 UNITS SUBQ Q24H Discontinued Reason: Therapy completed Levofloxacin* (Levaquin*), 500 MG ORAL DAILY Discontinued Reason: Therapy completed Magnesium Hydroxide* (Milk Of Magnesia*), 30 ML ORAL DAILY PRN for Constipation, (Reported) Discontinued Reason: Therapy completed Metformin Hcl* (Metformin Hcl*), 1,000 MG ORAL BID, (Reported) Discontinued Reason: Therapy completed Na Phos,M-B/Na Phos,Di-Ba* (Fleet Enema*), 133 ML RECTAL every 3 days PRN for Constipation, (Reported) Discontinued Reason: Therapy completed Polyethylene Glycol* (Miralax*), 17 GM ORAL HSPRN PRN for Constipation Discontinued Reason: Therapy completed Trimethoprim/Sulfamethoxazole (Bactrim Ds Tablet), 2 EA ORAL EVERY 12 HOURS Discontinued Reason: Therapy completed Trimethoprim/Sulfamethoxazole 160/800* (Bactrim Ds Tablet*), 1 TAB ORAL TWICE A DAY Discontinued Reason: Therapy completed [Insuilin Detemir pen], 15 UNITS SUBQ QHS, (Reported) Discontinued Reason: Therapy completed [Robitussin DM], 5 ML PO Q6HR PRN for For Cough, (Reported) Discontinued Reason: Therapy completed Patient History Healthcare decision maker Resuscitation status Full Code Advanced Directive on File Review of Systems ROS Narrative Unable to obtain due to dementia Physical Exam Last 24 Hour Vital Signs Date Time Temp Pulse Resp B/P (MAP) Pulse Ox O2 Delivery O2 Flow Rate FiO2 08/08/19 08:34 97.8 85 19 155/87 (109) 97 08/08/19 04:00 100 08/08/19 04:00 97.7 99 18 136/76 (96) 100 08/08/19 00:00 111 08/08/19 00:00 98.0 103 16 158/85 (109) 98 08/07/19 21:00 Nasal Cannula 3.0 1/8/20 20:00 98 08/07/19 20:00 98.0 112 16 154/91 (112) 97 08/07/19 16:00 97.1 91 18 134/62 (86) 100 08/07/19 16:00 3.0 08/07/19 16:00 96 08/07/19 12:00 97.3 91 18 129/69 (89) 94 08/07/19 12:00 75 08/07/19 12:00 3.0 Intake and Output 08/07/19 08/08/19 19:00 07:00 Intake Total 15 ml 280 ml Output Total 500 ml 400 ml Balance -485 ml -120 ml Intake Free Water 150 ml Tube Feeding 15 ml 130 ml Output Urine Total 500 ml 400 ml Height (Feet): 5 Height (Inches): 9.00 Weight (Pounds): 206 Medications Current Medications Medications (Trade) Dose Ordered Sig/Samaria Route PRN Reason Start Time Stop Time Status Last Admin Dose Admin Acetaminophen (Tylenol) 650 mg Q6H PRN ORAL For Pain 08/07/19 06:30 09/06/19 06:29 Amlodipine Besylate (Norvasc) 10 mg DAILY ORAL 08/07/19 09:00 09/06/19 08:59 08/07/19 08:25 Aspirin (Ecotrin) 81 mg DAILY ORAL 08/07/19 09:00 09/06/19 08:59 08/07/19 08:25 Barium Sulfate (Varibar Honey) 250 ml NOW PRN MC RAD 08/07/19 12:30 08/10/19 12:29 Barium Sulfate (Varibar [place]) 240 ml NOW PRN MC RAD 08/07/19 12:30 08/10/19 12:24 Barium Sulfate (Varibar Pudding) 230 ml NOW PRN MC RAD 08/07/19 12:30 08/10/19 12:24 Barium Sulfate (Varibar Thin Liquid powder) 148 gm NOW PRN MC RAD 08/07/19 12:30 08/10/19 12:24 Clonidine HCl (Catapres Tab) 0.1 mg Q6H PRN ORAL PRN SBP>160 08/07/19 09:00 09/06/19 08:44 Dextrose (Dextrose 50%) 25 ml Q30M PRN IV Hypoglycemia 08/07/19 08:30 09/06/19 08:29 Dextrose (Dextrose 50%) 50 ml Q30M PRN IV Hypoglycemia 08/07/19 08:30 09/06/19 08:29 Ferrous Sulfate (Feosol) 325 mg DAILY ORAL 08/07/19 09:00 09/06/19 08:59 08/07/19 08:25 Heparin Sodium (Porcine) (Heparin 5000 units/ml) 5,000 units EVERY 12 HOURS SUBQ 08/07/19 10:15 09/06/19 10:14 08/08/19 10:22 Hydralazine HCl (Apresoline) 20 mg DAILY ORAL 08/07/19 09:00 09/06/19 08:59 08/07/19 08:26 Insulin Aspart (NovoLOG) BEFORE MEALS AND HS SUBQ 08/07/19 11:30 09/06/19 11:29 08/07/19 21:24 Insulin Detemir (Levemir) 6 units Q24H SUBQ 08/07/19 09:00 09/06/19 08:59 08/07/19 08:30 Objective Narrative Gen: NAD HEENT: NCAT, MMM, EOMI, PERRL, No Oral lesion, no scleral icterus NECK: full range of motion, supple, no meningismus, No LAD, No JVD LUNGS: CTAB, No W/C, No Accessory muscle use CARDS: RRR, S1, S2, No M/R/G, ABD: Soft, NT, ND, No R/G, + BS, No HSM, No Masses : Deferred Ext: No C/C/E, Pulses 2+ B/L (DP, Rad): NEURO: A/O x 1, Strength and Sensation Grossly intact PSYCH: Normal mood and affect SKIN: Warm/dry, No rashes Assessment/Plan Assessment/Plan: 89 yo male with PMHx of Dementia, DM, HTN, CHD and CVA/TIA who presented from her retirement with cough and SOB. UTI UA (+) Urine Cx - Pend Afebrile No Leukocytosis Positive Blood Cx - Likely a contaminant Blood Cx 08/07/19 1/2 GPC Dementia DM HTN CVA/TIA CHF PLAN - Start Ceftriaxone #1 -08/06/19 S/P Cefepime - f/u UCx - Repeat Blood Cx - Repeat CBC - Monitor CBC and Temps Thank you for this consult. [facility] will continue to follow the patient with you during this hospitalization. Sina Artis MD Aug 08, 2019 11:00
--- NOTE | 2019-08-08 11:31 | NUR ---
ST NOTES: S: ALERT AND ATTENTIVE (ESTABLISHES EYE CONTACT) TO SPEAKER. NONVERBAL BUT WILL NOD HEAD NO WHEN OFFERED SOME PO TRIALS. DISLIKES ORAL SUCTION AND MOST PO TRIALS. SPOKE WITH FAMILY (NIECE JOSÉ MANUEL KEANE) WHO SAID THE PATIENT HAS NOT SPOKEN FOR OVER A YEAR. SHE SAID THE PATIENT REFUSED A MAMMOGRAM WAS NOT EVEN BATHING AT HOME. SHE WILL HAVE HER OTHER NIECE WHO IS AN RN (BRIDGER JACOBSON) CONTACT ME. O/A: REASSESS FOR MOD BARIUM SWALLOW STUDY READINESS PATIENT HAS NGT AND RECEIVING FEEDINGS. DID NOT APPEAR TO NEED ORAL SUCTION AND SINCE SHE DISLIKES SUCTION, PATIENT INITIALLY OFFERED 2 PO TRIALS OF NECTAR THICK LIQUID WATER AT TSP LEVEL, SWALLOWED AFTER 6 SECONDS WITH FAIR HYOLARYNGEAL EXCURSION, SWALLOWED AGAIN 4 SECONDS LATER (DOES NOT ALLOW ORAL INSPECTION). NO OVERT ASPIRATION BUT HAS SILENT ASPIRATION RISK. POST TRIALS, MOBILE MECHANIC ABLE TO SUCTION OUT MILD AMOUNT OF OROPHARYNGEAL RESIDUE (MOSTLY BACK OF THROAT AND MIN BILATERAL SIDES OF MOUTH) THAT WAS CLEAR AND NECTAR THICK CONSISTENCY. PATIENT REFUSED INITIAL AND ADDITIONAL TRIALS. PLAN: CONTINUE WITH NONORAL FEEDINGS AND ORAL CARE/SUCTION PRN AND IF RECEPTIVE. MOD BARIUM SWALLOW STUDY ONLY IF CONSISTENTLY TAKES PO TRIALS AND IS BETTER ABLE TO HANDLE HER OWN SECRETIONS. Addendum: 08/08/19 at 1212 by CONY PHILLIPS MOBILE MECHANIC ADDENDUM: SPOKE WITH FAMILY MEMBER BRIDGER MAURICIO (ELY) WHO WILL SPEAK TO THE FAMILY ABOUT THEIR WISHES FOR HER IT CONCERNS PO INTAKE AND QUALITY OF LIFE. SHE WILL CALL BACK ON MONDAY AFTER SHE SPEAKS TO ONE FAMILY MEMBER IN [place]. D/W HER ABOVE INFORMATION. SHE REPORTED THAT THE PATIENT HAS NOT SPOKEN FOR ONE YEAR AND THAT THE PATIENT STARTED TO CHEW SOLID FOOD AND HOLD IT IN HER MOUTH (1.5 YEARS OR MONTHS AGO- NEED TO CONFIRM WHICH). SHE LOST 20 LBS OVER 4-6 MONTHS. SHE WAS LATER DOWNGRADED TO PUREED FOODS AND SHE THEN SHE STARTED TO GAIN WEIGHT. STARTED TO REFUSE PO INTAKE FOR THE LAST 2 WEEKS.
--- NOTE | 2019-08-08 12:37 | Diagnostic Imaging Report ---
Indication: Nasogastric tube placement Technique: Supine view of the abdomen Comparison: 08/07/2019 Findings: Bowel gas pattern is unremarkable. There is a nasogastric tube in place, tip projected at the level of the gastric body. Shaver catheter is present. There is no significant interim change Impression: No significant change, over one day Satisfactory position of nasogastric tube
--- NOTE | 2019-08-08 13:35 | Pulmonology Progress Note ---
Assessment/Plan Problems: (1) Bacteremia (2) UTI (urinary tract infection) (3) Advanced dementia (4) DM (diabetes mellitus) (5) HTN (hypertension) Assessment/Plan still confused conn culture, BC positive for GPC iv abx check electrolytes sliding scale swallow evaluation dvt prophylaxis Subjective ROS Limited/Unobtainable: Yes Constitutional: Reports: no symptoms HEENT: Repors: no symptoms Respiratory: Reports: no symptoms Allergies: Coded Allergies: No Known Allergies (Unverified , 04/03/13) Objective Last 24 Hour Vital Signs Date Time Temp Pulse Resp B/P (MAP) Pulse Ox O2 Delivery O2 Flow Rate FiO2 08/08/19 12:00 84 08/08/19 12:00 96.8 106 18 140/90 (107) 100 08/08/19 10:51 155/87 08/08/19 10:51 85 155/87 08/08/19 09:00 Nasal Cannula 3.0 08/08/19 08:34 97.8 85 19 155/87 (109) 97 08/08/19 08:00 93 08/08/19 04:00 100 08/08/19 04:00 97.7 99 18 136/76 (96) 100 08/08/19 00:00 111 08/08/19 00:00 98.0 103 16 158/85 (109) 98 08/07/19 21:00 Nasal Cannula 3.0 08/07/19 20:00 98 08/07/19 20:00 98.0 112 16 154/91 (112) 97 08/07/19 16:00 97.1 91 18 134/62 (86) 100 08/07/19 16:00 3.0 08/07/19 16:00 96 Intake and Output 08/07/19 08/08/19 19:00 07:00 Intake Total 15 ml 280 ml Output Total 500 ml 400 ml Balance -485 ml -120 ml Intake Free Water 150 ml Tube Feeding 15 ml 130 ml Output Urine Total 500 ml 400 ml General Appearance: WD/WN HEENT: normocephalic, atraumatic Respiratory/Chest: chest wall non-tender, lungs clear Breasts: no masses Cardiovascular: normal peripheral pulses, normal rate Abdomen: normal bowel sounds, no organomegaly Genitourinary: normal external genitalia Extremities: no cyanosis Skin: no rash Microbiology Date/Time Source Procedure Growth Status 08/06/19 16:07 Blood Blood Culture - Preliminary Resulted 08/06/19 15:55 Blood Blood Culture - Preliminary Resulted 08/06/19 16:42 Nasal Nares - Final Complete 08/06/19 16:42 Nasal Nares - Final Complete 08/06/19 16:20 Indwelling Cath Urine Culture - Preliminary Resulted Current Medications Medications (Trade) Dose Ordered Sig/Samaria Route PRN Reason Start Time Stop Time Status Last Admin Dose Admin Acetaminophen (Tylenol) 650 mg Q6H PRN ORAL For Pain 08/07/19 06:30 09/06/19 06:29 Amlodipine Besylate (Norvasc) 10 mg DAILY ORAL 08/07/19 09:00 09/06/19 08:59 08/08/19 10:51 Aspirin (Ecotrin) 81 mg DAILY ORAL 08/07/19 09:00 09/06/19 08:59 08/08/19 10:57 Barium Sulfate (Varibar Honey) 250 ml NOW PRN MC RAD 08/07/19 12:30 08/10/19 12:29 Barium Sulfate (Varibar [place]) 240 ml NOW PRN MC RAD 08/07/19 12:30 08/10/19 12:24 Barium Sulfate (Varibar Pudding) 230 ml NOW PRN MC RAD 08/07/19 12:30 08/10/19 12:24 Barium Sulfate (Varibar Thin Liquid powder) 148 gm NOW PRN MC RAD 08/07/19 12:30 08/10/19 12:24 Clonidine HCl (Catapres Tab) 0.1 mg Q6H PRN ORAL PRN SBP>160 08/07/19 09:00 09/06/19 08:44 Dextrose (Dextrose 50%) 25 ml Q30M PRN IV Hypoglycemia 08/07/19 08:30 09/06/19 08:29 Dextrose (Dextrose 50%) 50 ml Q30M PRN IV Hypoglycemia 08/07/19 08:30 09/06/19 08:29 Ferrous Sulfate (Feosol) 325 mg DAILY ORAL 08/07/19 09:00 09/06/19 08:59 08/08/19 10:50 Heparin Sodium (Porcine) (Heparin 5000 units/ml) 5,000 units EVERY 12 HOURS SUBQ 08/07/19 10:15 09/06/19 10:14 08/08/19 10:22 Hydralazine HCl (Apresoline) 20 mg DAILY ORAL 08/07/19 09:00 09/06/19 08:59 08/08/19 10:51 Insulin Aspart (NovoLOG) BEFORE MEALS AND HS SUBQ 08/07/19 11:30 09/06/19 11:29 08/08/19 12:17 Insulin Detemir (Levemir) 6 units Q24H SUBQ 08/07/19 09:00 09/06/19 08:59 08/08/19 10:58 Selin Carias MD Aug 08, 2019 13:35
--- NOTE | 2019-08-08 19:32 | NUR ---
HAND-OFF: Report given to Praveen Martinez. Plan of care endorsed.
--- NOTE | 2019-08-08 19:40 | NUR ---
NURSE NOTES: Received report from ELY Sanchez. Patient is awake lying semi-arita's; resting comfortably. No signs of acute distress noted; denies pain at this time. On 2L nasal cannula. AOx1; unable to verbalize needs, but follows commands. Aphasic. Checked IV site; patent and flushed. No erythema, bleeding, or infiltration noted. Left nare NG tube [address] Glucerna 1.5 running at 30 mls/hr for a goal of 45 mls/hr. Shaver catheter draining well to gravity. Bed at lowest position, brakes on, siderails up x3. Call light within reach. Will continue to monitor.
[2019-08-09] VITALS: BP 159/84
--- NOTE | 2019-08-09 03:57 | NUR ---
NURSE NOTES: Patient is asleep lying semi-arita's; resting comfortably. On 2L nasal cannula. No signs of acute distress or pain noted at this time. Shaver catheter draining well to gravity.
[2019-08-09 04:00] VITALS: BP 151/87
[2019-08-09] MEDS: NovoLOG Insulin Flexpen SUBQ SCH ×4 (06:32→22:33)
--- NOTE | 2019-08-09 07:00 | NUR ---
HAND-OFF: Report given to ELY Kent and ELY Silva. Patient is awake lying semi-arita's; resting comfortably. On 2L nasal cannula. Glucerna 1.5 running at 45 mls/hr. Shaver catheter draining well to gravity. In stable condition.
[2019-08-09 07:36] LABS: BASOPHILS % (AUTO) 0.4 % (0.0-2.0); EOSINOPHILS % (AUTO) 4.9 % (0.0-3.0); HEMATOCRIT 37.1 % (37.0-47.0); HEMOGLOBIN 11.4 G/DL (12.0-16.0); LYMPHOCYTES % (AUTO) 13.7 % (20.0-45.0); MEAN CORPUSCULAR VOLUME 83 FL (80-99); MONOCYTES % (AUTO) 9.9 % (1.0-10.0); PLATELET COUNT 307 K/UL (150-450); RED CELL DISTRIBUTION WIDTH 14.5 % (11.6-14.8); WHITE BLOOD COUNT 6.2 K/UL (4.8-10.8)
[2019-08-09 07:42] LABS: ALANINE AMINOTRANSFERASE 24 U/L (12-78); ALBUMIN 3.1 G/DL (3.4-5.0); ALBUMIN/GLOBULIN RATIO 0.6 (1.0-2.7); ALKALINE PHOSPHATASE 108 U/L (46-116); ANION GAP 7 mmol/L (5-15); ASPARTATE AMINO TRANSFERASE 18 U/L (15-37); BILIRUBIN,TOTAL 0.2 MG/DL (0.2-1.0); BLOOD UREA NITROGEN 16 mg/dL (7-18); CARBON DIOXIDE 31 MMOL/L (21-32); CHLORIDE 103 MMOL/L (98-107); CREATININE 1.1 MG/DL (0.55-1.30); PHOSPHORUS 2.8 MG/DL (2.5-4.9); POTASSIUM 4.1 MMOL/L (3.5-5.1); SODIUM 141 MMOL/L (136-145)
[2019-08-09 08:00] VITALS: BP 145/48
--- NOTE | 2019-08-09 08:11 | NUR ---
NURSE NOTES: Received patient lying in bed. Patient A&Ox1. Pt denies any pain. Pt on 2L NC, Glucerna is running at goal 45ml/hr. Bed low and locked. Call light and bedside table within reach. Will continue plan of care.
[2019-08-09] MEDS: Aspirin EC 81mg tab ORAL SCH (10:00)
[2019-08-09] MEDS: HydrALAZINE 10mg Tab ORAL SCH (10:01)
[2019-08-09] MEDS: Heparin 5000 units/ml inj SUBQ SCH ×2 (10:02→22:34)
[2019-08-09] MEDS: Levemir Flexpen SUBQ SCH (10:03)
--- NOTE | 2019-08-09 10:31 | Infectious Diseases Prog Note ---
Assessment/Plan Assessment/Plan 89 yo male with PMHx of Dementia, DM, HTN, CHD and CVA/TIA who presented from her half-way with cough and SOB. UTI UA (+) Urine Cx - Pend Afebrile No Leukocytosis Positive Blood Cx - Likely a contaminant Blood Cx 08/07/19 1/2 GPC Dementia DM HTN CVA/TIA CHF PLAN - Continue Ceftriaxone #1 -08/06/19 S/P Cefepime - f/u UCx - Repeat Blood Cx - Repeat CBC - Monitor CBC and Temps Thank you for this consult. [facility] will continue to follow the patient with you during this hospitalization. Subjective Allergies: Coded Allergies: No Known Allergies (Unverified , 04/03/13) Subjective Afebrile Leukocytosis resolved Objective Vital Signs Last 24 Hour Vital Signs Date Time Temp Pulse Resp B/P (MAP) Pulse Ox O2 Delivery O2 Flow Rate FiO2 08/09/19 10:01 145/68 08/09/19 10:01 80 145/68 08/09/19 04:00 94 08/09/19 04:00 98.0 96 19 151/87 (108) 100 08/09/19 00:00 98.1 88 17 159/84 (109) 97 08/09/19 00:00 95 08/08/19 21:00 Nasal Cannula 3.0 08/08/19 20:00 98.2 101 20 153/79 (103) 100 08/08/19 20:00 98 08/08/19 16:00 98.6 84 18 136/82 (100) 100 08/08/19 16:00 94 08/08/19 12:00 82 08/08/19 12:00 96.8 106 18 140/90 (107) 100 08/08/19 10:51 155/87 08/08/19 10:51 85 155/87 Height (Feet): 5 Height (Inches): 9.00 Weight (Pounds): 199 Objective Gen: NAD HEENT: NCAT, MMM, EOMI LUNGS: CTAB, No W CARDS: RRR, S1, S2 ABD: Soft, NT, ND Microbiology Date/Time Source Procedure Growth Status 08/06/19 16:07 Blood Blood Culture - Preliminary Gram Positive Cocci Resulted 08/06/19 15:55 Blood Blood Culture - Preliminary Gram Positive Cocci Resulted 08/06/19 16:42 Nasal Nares - Final Complete 08/06/19 16:42 Nasal Nares - Final Complete 08/06/19 16:20 Indwelling Cath Urine Culture - Preliminary Gram Positive Cocci Resulted 08/06/19 20:27 Rectum - Final NO CARBAPENEM-RESISTANT ENTEROBACTERI... Complete Laboratory Tests Test 08/09/19 06:45 White Blood Count 6.2 K/UL (4.8-10.8) Red Blood Count 4.50 M/UL (4.20-5.40) Hemoglobin 11.4 G/DL (12.0-16.0) L Hematocrit 37.1 % (37.0-47.0) Mean Corpuscular Volume 83 FL (80-99) Mean Corpuscular Hemoglobin 25.4 PG (27.0-31.0) L Mean Corpuscular Hemoglobin Concent 30.8 G/DL (32.0-36.0) L Red Cell Distribution Width 14.5 % (11.6-14.8) Platelet Count 307 K/UL (150-450) Mean Platelet Volume 5.0 FL (6.5-10.1) L Neutrophils (%) (Auto) 71.0 % (45.0-75.0) Lymphocytes (%) (Auto) 13.7 % (20.0-45.0) L Monocytes (%) (Auto) 9.9 % (1.0-10.0) Eosinophils (%) (Auto) 4.9 % (0.0-3.0) H Basophils (%) (Auto) 0.4 % (0.0-2.0) Erythrocyte Sedimentation Rate 28 MM/HR (0-30) Sodium Level 141 MMOL/L (136-145) Potassium Level 4.1 MMOL/L (3.5-5.1) Chloride Level 103 MMOL/L (98-107) Carbon Dioxide Level 31 MMOL/L (21-32) Anion Gap 7 mmol/L (5-15) Blood Urea Nitrogen 16 mg/dL (7-18) Creatinine 1.1 MG/DL (0.55-1.30) Estimat Glomerular Filtration Rate mL/min (>60) Glucose Level 219 MG/DL (74-106) H Calcium Level 9.0 MG/DL (8.5-10.1) Phosphorus Level 2.8 MG/DL (2.5-4.9) Magnesium Level 2.1 MG/DL (1.8-2.4) Total Bilirubin 0.2 MG/DL (0.2-1.0) Aspartate Amino Transf (AST/SGOT) 18 U/L (15-37) Alanine Aminotransferase (ALT/SGPT) 24 U/L (12-78) Alkaline Phosphatase 108 U/L (46-116) C-Reactive Protein, Quantitative 5.6 mg/dL (0.00-0.90) H Total Protein 8.3 G/DL (6.4-8.2) H Albumin 3.1 G/DL (3.4-5.0) L Globulin 5.2 g/dL Albumin/Globulin Ratio 0.6 (1.0-2.7) L Current Medications Medications (Trade) Dose Ordered Sig/Samaria Route PRN Reason Start Time Stop Time Status Last Admin Dose Admin Acetaminophen (Tylenol) 650 mg Q6H PRN ORAL For Pain 08/07/19 06:30 09/06/19 06:29 Amlodipine Besylate (Norvasc) 10 mg DAILY ORAL 08/07/19 09:00 09/06/19 08:59 08/09/19 10:01 Aspirin (Ecotrin) 81 mg DAILY ORAL 08/07/19 09:00 09/06/19 08:59 08/09/19 10:00 Barium Sulfate (Varibar Honey) 250 ml NOW PRN MC RAD 08/07/19 12:30 08/10/19 12:29 Barium Sulfate (Varibar [place]) 240 ml NOW PRN MC RAD 08/07/19 12:30 08/10/19 12:24 Barium Sulfate (Varibar Pudding) 230 ml NOW PRN MC RAD 08/07/19 12:30 08/10/19 12:24 Barium Sulfate (Varibar Thin Liquid powder) 148 gm NOW PRN MC RAD 08/07/19 12:30 08/10/19 12:24 Clonidine HCl (Catapres Tab) 0.1 mg Q6H PRN ORAL PRN SBP>160 08/07/19 09:00 09/06/19 08:44 Dextrose (Dextrose 50%) 25 ml Q30M PRN IV Hypoglycemia 08/07/19 08:30 09/06/19 08:29 Dextrose (Dextrose 50%) 50 ml Q30M PRN IV Hypoglycemia 08/07/19 08:30 09/06/19 08:29 Ferrous Sulfate (Feosol) 325 mg DAILY ORAL 08/07/19 09:00 09/06/19 08:59 08/09/19 10:00 Heparin Sodium (Porcine) (Heparin 5000 units/ml) 5,000 units EVERY 12 HOURS SUBQ 08/07/19 10:15 09/06/19 10:14 08/09/19 10:02 Hydralazine HCl (Apresoline) 20 mg DAILY ORAL 08/07/19 09:00 09/06/19 08:59 08/09/19 10:01 Insulin Aspart (NovoLOG) BEFORE MEALS AND HS SUBQ 08/07/19 11:30 09/06/19 11:29 08/09/19 06:32 Insulin Detemir (Levemir) 6 units Q24H SUBQ 08/07/19 09:00 09/06/19 08:59 08/09/19 10:03 Sina Artis MD Aug 09, 2019 10:31
[2019-08-09 12:00] VITALS: BP 156/70
--- NOTE | 2019-08-09 12:14 | Pulmonology Progress Note ---
Assessment/Plan Problems: (1) Bacteremia (2) UTI (urinary tract infection) (3) Advanced dementia (4) DM (diabetes mellitus) (5) HTN (hypertension) Assessment/Plan still confused, NG tube is in conn culture, BC positive for GPC iv abx check electrolytes sliding scale swallow evaluation when more awake dvt prophylaxis Subjective ROS Limited/Unobtainable: Yes Constitutional: Reports: no symptoms HEENT: Repors: no symptoms Allergies: Coded Allergies: No Known Allergies (Unverified , 04/03/13) Objective Last 24 Hour Vital Signs Date Time Temp Pulse Resp B/P (MAP) Pulse Ox O2 Delivery O2 Flow Rate FiO2 08/09/19 10:01 145/68 08/09/19 10:01 80 145/68 08/09/19 08:00 98.2 80 18 145/48 (80) 96 08/09/19 04:00 94 08/09/19 04:00 98.0 96 19 151/87 (108) 100 08/09/19 00:00 98.1 88 17 159/84 (109) 97 08/09/19 00:00 95 08/08/19 21:00 Nasal Cannula 3.0 08/08/19 20:00 98.2 101 20 153/79 (103) 100 08/08/19 20:00 98 08/08/19 16:00 98.6 84 18 136/82 (100) 100 08/08/19 16:00 94 Intake and Output 08/08/19 08/09/19 19:00 07:00 Intake Total 150 ml 625 ml Output Total 450 ml Balance 150 ml 175 ml Intake Free Water 200 ml Tube Feeding 150 ml 425 ml Output Urine Total 450 ml Objective General Appearance: WD/WN, no apparent distress Lines, tubes and drains: peripheral, central line HEENT: normocephalic, atraumatic Neck: non-tender, normal alignment Respiratory/Chest: lungs clear Breasts: no masses Cardiovascular/Chest: normal peripheral pulses Abdomen: normal bowel sounds, soft Genitourinary/Rectal: normal genital exam Extremities: normal range of motion Microbiology Date/Time Source Procedure Growth Status 08/06/19 16:07 Blood Blood Culture - Preliminary Gram Positive Cocci Resulted 08/06/19 15:55 Blood Blood Culture - Preliminary Gram Positive Cocci Resulted 08/06/19 16:42 Nasal Nares - Final Complete 08/06/19 16:42 Nasal Nares - Final Complete 08/06/19 16:20 Indwelling Cath Urine Culture - Preliminary Gram Positive Cocci Resulted 08/06/19 20:27 Rectum - Final NO CARBAPENEM-RESISTANT ENTEROBACTERI... Complete Laboratory Tests 08/09/19 06:45: White Blood Count 6.2, Red Blood Count 4.50, Hemoglobin 11.4L, Hematocrit 37.1, Mean Corpuscular Volume 83, Mean Corpuscular Hemoglobin 25.4L, Mean Corpuscular Hemoglobin Concent 30.8L, Red Cell Distribution Width 14.5, Platelet Count 307, Mean Platelet Volume 5.0L, Neutrophils (%) (Auto) 71.0, Lymphocytes (%) (Auto) 13.7L, Monocytes (%) (Auto) 9.9, Eosinophils (%) (Auto) 4.9H, Basophils (%) ( Auto) 0.4, Erythrocyte Sedimentation Rate 28, Sodium Level 141, Potassium Level 4.1, Chloride Level 103, Carbon Dioxide Level 31, Anion Gap 7, Blood Urea Nitrogen 16, Creatinine 1.1, Estimat Glomerular Filtration Rate , Glucose Level 219H, Calcium Level 9.0, Phosphorus Level 2.8, Magnesium Level 2.1, Total Bilirubin 0.2, Aspartate Amino Transf (AST/SGOT) 18, Alanine Aminotransferase ( ALT/SGPT) 24, Alkaline Phosphatase 108, C-Reactive Protein, Quantitative 5.6H, Total Protein 8.3H, Albumin 3.1L, Globulin 5.2, Albumin/Globulin Ratio 0.6L Current Medications Medications (Trade) Dose Ordered Sig/Samaria Route PRN Reason Start Time Stop Time Status Last Admin Dose Admin Acetaminophen (Tylenol) 650 mg Q6H PRN ORAL For Pain 08/07/19 06:30 09/06/19 06:29 Amlodipine Besylate (Norvasc) 10 mg DAILY ORAL 08/07/19 09:00 09/06/19 08:59 08/09/19 10:01 Aspirin (Ecotrin) 81 mg DAILY ORAL 08/07/19 09:00 09/06/19 08:59 08/09/19 10:00 Barium Sulfate (Varibar Honey) 250 ml NOW PRN MC RAD 08/07/19 12:30 08/10/19 12:29 Barium Sulfate (Varibar [place]) 240 ml NOW PRN MC RAD 08/07/19 12:30 08/10/19 12:24 Barium Sulfate (Varibar Pudding) 230 ml NOW PRN MC RAD 08/07/19 12:30 08/10/19 12:24 Barium Sulfate (Varibar Thin Liquid powder) 148 gm NOW PRN MC RAD 08/07/19 12:30 08/10/19 12:24 Ceftriaxone Sodium 1 gm/ Dextrose 55 ml @ 110 mls/hr Q24H IVPB 08/09/19 12:00 08/16/19 11:59 Clonidine HCl (Catapres Tab) 0.1 mg Q6H PRN ORAL PRN SBP>160 08/07/19 09:00 09/06/19 08:44 Dextrose (Dextrose 50%) 25 ml Q30M PRN IV Hypoglycemia 08/07/19 08:30 09/06/19 08:29 Dextrose (Dextrose 50%) 50 ml Q30M PRN IV Hypoglycemia 08/07/19 08:30 09/06/19 08:29 Ferrous Sulfate (Feosol) 325 mg DAILY ORAL 08/07/19 09:00 09/06/19 08:59 08/09/19 10:00 Heparin Sodium (Porcine) (Heparin 5000 units/ml) 5,000 units EVERY 12 HOURS SUBQ 08/07/19 10:15 09/06/19 10:14 08/09/19 10:02 Hydralazine HCl (Apresoline) 20 mg DAILY ORAL 08/07/19 09:00 09/06/19 08:59 08/09/19 10:01 Insulin Aspart (NovoLOG) BEFORE MEALS AND HS SUBQ 08/07/19 11:30 09/06/19 11:29 08/09/19 12:06 Insulin Detemir (Levemir) 6 units Q24H SUBQ 08/07/19 09:00 09/06/19 08:59 08/09/19 10:03 Selin Carias MD Aug 09, 2019 12:14
[2019-08-09] MEDS: cefTRIAXone 1 GM in D5W 55 ML IVPB SCH (12:35)
--- NOTE | 2019-08-09 15:35 | NUR ---
RD ASSESSMENT & RECOMMENDATIONS SEE CARE ACTIVITY FOR COMPLETE ASSESSMENT DAILY ESTIMATED NEEDS: Needs based on DM, CHF 65.8kg abw 25-30kcal/kg kcals/kg 1575-1890kcal total kcals 1-1.5g/kg g protein/kg 66-99 g total protein 20-25 mL/kg 9440-8634 total fluid mLs NUTRITION DIAGNOSIS: Swallowing difficulty R/T dysphagia, h/o CVA/TIA, dementia as evidenced by ELECTRONEURODIAGNOSTIC TECHNOLOGIST recommends NPO, s/p NGT insertion, on NGT feeding. CURRENT DIET:NPO CURRENT TF:Glucerna 1.5 @ 45ml/hr x 24 hrs PO DIET RECOMMENDATIONS: WHEN SAFE FOR ORAL DIET -> CCHO MED, LOW NA (texture per ELECTRONEURODIAGNOSTIC TECHNOLOGIST) ENTERAL NUTRITION RECOMMENDATIONS: Glucerna 1.5 @ 45ml/hr x 24 hrs to provide 1080ml, 1620kcal, 89g prot, 820ml free water * Maintain current TF: meets 100% est kcal/prot needs * HOB over 30 degrees * Without IVF, H20 flush of 150ml q 6 hrs ADDITIONAL RECOMMENDATIONS: * Calibrated bedscale wt per SNF, wt=275qiv in Jul 2019 * Monitor for oral diet initiation- on NGT feds at this time * Consider increasing long acting insulin for improved BG control POC glu ([phone] ) * Monitor lytes daily w/ TF, replete as needed .
--- NOTE | 2019-08-09 15:36 | History & Physical ---
History and Physical History & Physicial Asad De Paz MD Aug 09, 2019 15:36
[2019-08-09 16:00] VITALS: BP 131/68
--- NOTE | 2019-08-09 17:45 | History and Physical Report ---
DATE OF ADMISSION: 08/06/2019 CHIEF COMPLAINT: Cough, fever, upper respiratory symptoms. HISTORY OF PRESENT ILLNESS: This is a 89-year-old female with past medical history significant for dementia, diabetes type 2, hypertension, congestive heart failure, chronic heart disease, CVA, and TIA who presented to the emergency room from nursing facility after was noted to have a cough and chest congestion. The patient was noted feeling well prior to that and was noted to have elevated WBC in the emergency department with abnormal urinary tract and subsequently the patient was admitted to the hospital with sepsis, possibly due to acute UTI as well as upper respiratory symptoms, possible viral versus bacterial bronchitis. PAST MEDICAL HISTORY/PAST SURGICAL HISTORY: Significant for dementia, diabetes type 2, hypertension, congestive heart failure, CVA, and TIA. MEDICATIONS AT HOME: Please refer to medication reconciliation. ALLERGIES: No known drug allergies. SOCIAL HISTORY: senior care resident. No smoking, alcohol, or drugs. FAMILY HISTORY: Noncontributory. REVIEW OF SYSTEMS: Mostly as above. Complained about the chest congestion, cough. Denies any hemoptysis or hematochezia. Denies any suicidal or homicidal ideation. Very limited secondary to the patient's status. She is demented and limited answers. Most of the history is taken from the emergency department as well as nursing facility. PHYSICAL EXAMINATION: VITAL SIGNS: On admission from the emergency department, temperature 97.3, pulse of 88, respirations 20, blood pressure 158/83. GENERAL: The patient is awake, responsive, no acute distress. HEENT: NG tube in the nose. NECK: Supple. No JVD. LUNGS: Good air entry. No wheezing or rales. Decreased air in bases. HEART: S1, S2. Distant heart sounds. No murmurs or gallops. ABDOMEN: Soft, nondistended, nontender. Morbidly obese. EXTREMITIES: No cyanosis, clubbing, or edema. NEUROLOGIC: Limited secondary to the patient's status. The patient is moving upper extremities spontaneously. Lower extremities, limited range of motion. RECTAL: Refused and deferred. GENITOURINARY: Refused and deferred. PSYCHIATRIC: Mood and affect unable to obtain secondary to the patient's status. LABORATORY AND DIAGNOSTIC DATA: On admission from the emergency department, WBC of 11, hemoglobin of 11, hematocrit 36, platelet is 265. ABG, pH of 7.37, pCO2 of 46, pO2 of 115, saturating 98%. Sodium 141, potassium 4.0, chloride 103, bicarbonate 29, BUN 19, creatinine 1.0, glucose is 292. Calcium is 9.4. Phosphorus is 2.8. Magnesium is 2.2. Total bilirubin of 0.2, AST of 14, ALT of 21, alkaline phosphatase 101. Troponin 0.0. ProBNP 98. Lipase is 180. Urinalysis +2 protein, negative nitrite, negative leukocyte, moderate bacteria. Blood culture showed gram-positive cocci. Urine culture showed gram-positive cocci as well. Chest x-ray noted to be limited evaluation. Mild pulmonary vascular congestion. Abdominal x-ray noted satisfactory nasogastric tube placement. ASSESSMENT: 1. Sepsis secondary to the gram-positive cocci bacteremia, UTI. 2. Morbid obesity. 3. Dysphagia, status post NG tube feeding. 4. Advanced dementia. 5. Diabetes type 2. 6. Hypertension. 7. Prior history of CVA. 8. CHF. PLAN: Admit the patient to telemetry. We will follow up laboratory. Start the patient on broad-spectrum antibiotic with Rocephin. We will follow up with the cultures as well as urine as well as blood. Code status at this time is Full Code. We will follow up with Pulmonary consultation with Dr. Selin Carias as well as ID consultation with Dr. Sina Artis. Asad De Paz M.D. DR: ROSE MARIE JOB#: [id number] CC:
--- NOTE | 2019-08-09 19:49 | NUR ---
HAND-OFF: Report given to ELY Beth. Pt stable.
--- NOTE | 2019-08-09 19:50 | NUR ---
NURSE NOTES: Received patient lying in semi fowlers position in bed. Patient A&Ox1. Pt denies any pain. Pt on 2L NC, Bed is low and in locked position, bed alarm on. Call light and bedside table within reach. Glucerna 1.5 is running at goal 45ml/hr. HOB up for aspiration precautions Will continue plan of care and turn and reposition patient every two hours. Addendum: 08/10/19 at 0920 by Emely Alexander RN bilateral soft wrist restraints, skin intact
[2019-08-09 20:00] VITALS: BP 143/75
[2019-08-10] VITALS: BP 136/75
[2019-08-10 04:00] VITALS: BP 139/78
--- NOTE | 2019-08-10 07:25 | Pulmonology Progress Note ---
Assessment/Plan Problems: (1) Bacteremia (2) UTI (urinary tract infection) (3) Advanced dementia (4) DM (diabetes mellitus) (5) HTN (hypertension) Assessment/Plan no new complains still confused, NG tube is in conn culture, BC positive for GPC, ? contaminated iv abx check electrolytes sliding scale swallow evaluation when more awake dvt prophylaxis Subjective ROS Limited/Unobtainable: Yes Constitutional: Reports: no symptoms HEENT: Repors: no symptoms Allergies: Coded Allergies: No Known Allergies (Unverified , 04/03/13) Objective Last 24 Hour Vital Signs Date Time Temp Pulse Resp B/P (MAP) Pulse Ox O2 Delivery O2 Flow Rate FiO2 08/10/19 04:00 98.3 99 19 139/78 (98) 95 08/10/19 00:00 98.8 102 19 136/75 (95) 96 08/09/19 20:00 98.6 106 19 143/75 (97) 94 08/09/19 16:43 97 08/09/19 16:00 96.7 70 20 131/68 (89) 96 08/09/19 12:00 96.7 89 19 156/70 (98) 100 08/09/19 11:41 83 08/09/19 11:41 83 08/09/19 10:01 145/68 08/09/19 10:01 80 145/68 08/09/19 09:00 Nasal Cannula 3.0 08/09/19 08:00 98.2 80 18 145/48 (80) 96 08/09/19 07:44 98 Intake and Output 08/09/19 08/10/19 19:00 07:00 Output Total 800 ml Balance -800 ml Output Urine Total 800 ml Objective General Appearance: WD/WN, no apparent distress Lines, tubes and drains: peripheral, central line HEENT: normocephalic, atraumatic Neck: non-tender, normal alignment Respiratory/Chest: lungs clear Breasts: no masses Cardiovascular/Chest: normal peripheral pulses Abdomen: normal bowel sounds, soft Genitourinary/Rectal: normal genital exam Extremities: normal range of motion Current Medications Medications (Trade) Dose Ordered Sig/Samaria Route PRN Reason Start Time Stop Time Status Last Admin Dose Admin Acetaminophen (Tylenol) 650 mg Q6H PRN ORAL For Pain 08/07/19 06:30 09/06/19 06:29 Amlodipine Besylate (Norvasc) 10 mg DAILY ORAL 08/07/19 09:00 09/06/19 08:59 08/09/19 10:01 Aspirin (Ecotrin) 81 mg DAILY ORAL 08/07/19 09:00 09/06/19 08:59 08/09/19 10:00 Barium Sulfate (Varibar Honey) 250 ml NOW PRN MC RAD 08/07/19 12:30 08/10/19 12:29 Barium Sulfate (Varibar [place]) 240 ml NOW PRN MC RAD 08/07/19 12:30 08/10/19 12:24 Barium Sulfate (Varibar Pudding) 230 ml NOW PRN MC RAD 08/07/19 12:30 08/10/19 12:24 Barium Sulfate (Varibar Thin Liquid powder) 148 gm NOW PRN MC RAD 08/07/19 12:30 08/10/19 12:24 Ceftriaxone Sodium 1 gm/ Dextrose 55 ml @ 110 mls/hr Q24H IVPB 08/09/19 12:00 08/16/19 11:59 08/09/19 12:35 Clonidine HCl (Catapres Tab) 0.1 mg Q6H PRN ORAL PRN SBP>160 08/07/19 09:00 09/06/19 08:44 Dextrose (Dextrose 50%) 25 ml Q30M PRN IV Hypoglycemia 08/07/19 08:30 09/06/19 08:29 Dextrose (Dextrose 50%) 50 ml Q30M PRN IV Hypoglycemia 08/07/19 08:30 09/06/19 08:29 Ferrous Sulfate (Feosol) 325 mg DAILY ORAL 08/07/19 09:00 09/06/19 08:59 08/09/19 10:00 Heparin Sodium (Porcine) (Heparin 5000 units/ml) 5,000 units EVERY 12 HOURS SUBQ 08/07/19 10:15 09/06/19 10:14 08/09/19 22:34 Hydralazine HCl (Apresoline) 20 mg DAILY ORAL 08/07/19 09:00 09/06/19 08:59 08/09/19 10:01 Insulin Aspart (NovoLOG) BEFORE MEALS AND HS SUBQ 08/07/19 11:30 09/06/19 11:29 08/09/19 22:33 Insulin Detemir (Levemir) 6 units Q24H SUBQ 08/07/19 09:00 09/06/19 08:59 08/09/19 10:03 Selin Carias MD Aug 10, 2019 07:25
[2019-08-10 08:00] VITALS: BP 157/81
[2019-08-10] MEDS: NovoLOG Insulin Flexpen SUBQ SCH ×3 (08:13→18:00)
[2019-08-10 08:40] LABS: BASOPHILS % (AUTO) 0.6 % (0.0-2.0); EOSINOPHILS % (AUTO) 3.9 % (0.0-3.0); HEMOGLOBIN 11.1 G/DL (12.0-16.0); LYMPHOCYTES % (AUTO) 23.5 % (20.0-45.0); MEAN CORPUSCULAR VOLUME 83 FL (80-99); MONOCYTES % (AUTO) 7.1 % (1.0-10.0); NEUTROPHILS % (AUTO) 64.9 % (45.0-75.0); PLATELET COUNT 272 K/UL (150-450); RED BLOOD COUNT 4.35 M/UL (4.20-5.40); RED CELL DISTRIBUTION WIDTH 14.6 % (11.6-14.8); WHITE BLOOD COUNT 6.6 K/UL (4.8-10.8)
[2019-08-10 09:01] LABS: INR 0.9 (0.9-1.1)
[2019-08-10 09:04] LABS: LACTATE DEHYDROGENASE 159 U/L (81-234)
--- NOTE | 2019-08-10 09:20 | NUR ---
HAND-OFF: Report given to ELY Phan
[2019-08-10 09:44] LABS: % IRON SATURATION 18 % (15-50); IRON 41 ug/dL (50-175); TOTAL IRON BINDING CAPACITY 225 ug/dL (250-450)
[2019-08-10] MEDS: Aspirin EC 81mg tab ORAL SCH (09:56)
[2019-08-10] MEDS: HydrALAZINE 10mg Tab ORAL SCH (09:56)
[2019-08-10] MEDS: Heparin 5000 units/ml inj SUBQ SCH ×2 (09:57→21:13)
[2019-08-10] MEDS: Levemir Flexpen SUBQ SCH (09:58)
[2019-08-10 12:00] VITALS: BP 148/85
[2019-08-10] MEDS: cefTRIAXone 1 GM in D5W 55 ML IVPB SCH (12:00)
--- NOTE | 2019-08-10 15:49 | Internal Med Progress Note ---
Subjective Physician Name Caesar Pizano Attending Physician Selin Carias MD Current Medications Medications (Trade) Dose Ordered Sig/Samaria Route PRN Reason Start Time Stop Time Status Last Admin Dose Admin Acetaminophen (Tylenol) 650 mg Q6H PRN ORAL For Pain 08/07/19 06:30 09/06/19 06:29 Amlodipine Besylate (Norvasc) 10 mg DAILY ORAL 08/07/19 09:00 09/06/19 08:59 08/10/19 09:56 Aspirin (Ecotrin) 81 mg DAILY ORAL 08/07/19 09:00 09/06/19 08:59 08/10/19 09:56 Ceftriaxone Sodium 1 gm/ Dextrose 55 ml @ 110 mls/hr Q24H IVPB 08/09/19 12:00 08/16/19 11:59 08/10/19 12:00 Clonidine HCl (Catapres Tab) 0.1 mg Q6H PRN ORAL PRN SBP>160 08/07/19 09:00 09/06/19 08:44 Dextrose (Dextrose 50%) 25 ml Q30M PRN IV Hypoglycemia 08/07/19 08:30 09/06/19 08:29 Dextrose (Dextrose 50%) 50 ml Q30M PRN IV Hypoglycemia 08/07/19 08:30 09/06/19 08:29 Ferrous Sulfate (Feosol) 325 mg DAILY ORAL 08/07/19 09:00 09/06/19 08:59 08/10/19 09:55 Heparin Sodium (Porcine) (Heparin 5000 units/ml) 5,000 units EVERY 12 HOURS SUBQ 08/07/19 10:15 09/06/19 10:14 08/10/19 09:57 Hydralazine HCl (Apresoline) 20 mg DAILY ORAL 08/07/19 09:00 09/06/19 08:59 08/10/19 09:56 Insulin Aspart (NovoLOG) BEFORE MEALS AND HS SUBQ 08/07/19 11:30 09/06/19 11:29 08/10/19 15:37 Insulin Detemir (Levemir) 6 units Q24H SUBQ 08/07/19 09:00 09/06/19 08:59 08/10/19 09:58 Allergies: Coded Allergies: No Known Allergies (Unverified , 04/03/13) Objective Last Vital Signs Date Time Temp Pulse Resp B/P (MAP) Pulse Ox O2 Delivery O2 Flow Rate FiO2 08/10/19 12:00 78 08/10/19 09:56 139/78 08/10/19 09:00 Nasal Cannula 3.0 08/10/19 08:43 94 32 08/10/19 04:00 98.3 19 Laboratory Tests Test 08/10/19 07:43 White Blood Count 6.6 K/UL (4.8-10.8) Red Blood Count 4.35 M/UL (4.20-5.40) Hemoglobin 11.1 G/DL (12.0-16.0) L Hematocrit 36.0 % (37.0-47.0) L Mean Corpuscular Volume 83 FL (80-99) Mean Corpuscular Hemoglobin 25.6 PG (27.0-31.0) L Mean Corpuscular Hemoglobin Concent 30.9 G/DL (32.0-36.0) L Red Cell Distribution Width 14.6 % (11.6-14.8) Platelet Count 272 K/UL (150-450) Mean Platelet Volume 4.8 FL (6.5-10.1) L Neutrophils (%) (Auto) 64.9 % (45.0-75.0) Lymphocytes (%) (Auto) 23.5 % (20.0-45.0) Monocytes (%) (Auto) 7.1 % (1.0-10.0) Eosinophils (%) (Auto) 3.9 % (0.0-3.0) H Basophils (%) (Auto) 0.6 % (0.0-2.0) Differential Total Cells Counted 100 Neutrophils % (Manual) 61 % (45-75) Lymphocytes % (Manual) 23 % (20-45) Monocytes % (Manual) 12 % (1-10) H Eosinophils % (Manual) 4 % (0-3) H Basophils % (Manual) 0 % (0-2) Band Neutrophils 0 % (0-8) Platelet Estimate Adequate Platelet Morphology Normal Erythrocyte Sedimentation Rate 97 MM/HR (0-30) H Reticulocyte Count 1.0 % (0.5-2.0) Prothrombin Time 9.7 SEC (9.30-11.50) Prothromb Time International Ratio 0.9 (0.9-1.1) Activated Partial Thromboplast Time 26 SEC (23-33) Iron Level 41 ug/dL (50-175) L Total Iron Binding Capacity 225 ug/dL (250-450) L Percent Iron Saturation 18 % (15-50) Unsaturated Iron Binding 184 ug/dL (112-346) Lactate Dehydrogenase 159 U/L (81-234) Carcinoembryonic Antigen Pending Vitamin B12 Level 763 PG/ML (193-986) Folate 8.4 NG/ML (8.6-58.9) L Intake and Output 08/09/19 08/10/19 19:00 07:00 Output Total 800 ml Balance -800 ml Output Urine Total 800 ml Objective PHYSICAL EXAMINATION: GENERAL: The patient is awake, responsive, no acute distress. HEENT: NG tube in the nose. NECK: Supple. No JVD. LUNGS: Good air entry. No wheezing or rales. Decreased air in bases. HEART: S1, S2. Distant heart sounds. No murmurs or gallops. ABDOMEN: Soft, nondistended, nontender. Morbidly obese. EXTREMITIES: No cyanosis, clubbing, or edema. NEUROLOGIC: Limited secondary to the patient's status. The patient is moving upper extremities spontaneously. Lower extremities, limited range of motion. RECTAL: Refused and deferred. GENITOURINARY: Refused and deferred. PSYCHIATRIC: Mood and affect unable to obtain secondary to the patient's status. Assessment/Plan Assessment/Plan ASSESSMENT: 1. Sepsis=Staph Capitus, UTI=Strep Grp B. 2. Morbid obesity. 3. Dysphagia, status post NG tube feeding. 4. Advanced dementia. 5. Diabetes type 2. 6. Hypertension. 7. Prior history of CVA. 8. CHF. PLAN: 1. Admit the patient to telemetry. 2. antibiotic=Rocephin. We will 3. Codestatus at this time is Full Code. 4. Pulmonary consultation= Dr. Selin Carias 5. ID consultation = Dr. Sina Artis. Caesar Pizano MD Aug 10, 2019 15:49
[2019-08-10 16:00] VITALS: BP 137/82
[2019-08-10 20:00] VITALS: BP 153/90
--- NOTE | 2019-08-10 20:00 | NUR ---
NURSE NOTES: Received report from Sylvester Fong RN. Patient is awake, lying in semi-arita's; resting comfortably No signs of acute distress noted, on 2 L NC, alert x1. denies pain at this time. unable to verbalize needs, but follows commands, Aphasic. Checked IV site; patent and flushed. No erythema, bleeding, or infiltration noted. Left nare NG tube [address] Glucerna 1.5 running at goal of 45 mls/hr. Beach catheter draining well to gravity, beach anchor in place. Bed at lowest position, locked, siderails up x3. Call light within reach. Will continue to monitor.
[2019-08-11] VITALS: BP 155/80
[2019-08-11] MEDS: NovoLOG Insulin Flexpen SUBQ SCH ×4 (00:21→18:15)
[2019-08-11 04:00] VITALS: BP 133/90
--- NOTE | 2019-08-11 07:00 | Pulmonology Progress Note ---
Assessment/Plan Problems: (1) Bacteremia (2) UTI (urinary tract infection) (3) Advanced dementia (4) DM (diabetes mellitus) (5) HTN (hypertension) Assessment/Plan cxr in am no new complains looks comfortable NG tube is in conn culture, BC positive for GPC, ? contaminated iv abx check electrolytes sliding scale swallow evaluation when more awake dvt prophylaxis Subjective ROS Limited/Unobtainable: Yes Constitutional: Reports: no symptoms HEENT: Repors: no symptoms Allergies: Coded Allergies: No Known Allergies (Unverified , 04/03/13) Objective Last 24 Hour Vital Signs Date Time Temp Pulse Resp B/P (MAP) Pulse Ox O2 Delivery O2 Flow Rate FiO2 08/11/19 04:00 87 08/11/19 04:00 98.0 86 20 133/90 (104) 95 08/11/19 00:00 97.5 99 20 155/80 (105) 98 08/11/19 00:00 93 08/10/19 21:00 Nasal Cannula 3.0 08/10/19 20:00 98.1 85 18 153/90 (111) 100 08/10/19 20:00 89 08/10/19 16:00 86 08/10/19 16:00 98.2 86 18 137/82 (100) 95 08/10/19 12:00 98.1 88 19 148/85 (106) 98 08/10/19 12:00 78 08/10/19 09:56 139/78 08/10/19 09:56 101 139/78 08/10/19 09:00 Nasal Cannula 3.0 08/10/19 08:43 94 Nasal Cannula 3.0 32 08/10/19 08:00 96.2 80 20 157/81 (106) 96 08/10/19 08:00 97 Intake and Output 08/10/19 08/11/19 19:00 07:00 Output Total 1200 ml 1100 ml Balance -1200 ml -1100 ml Output Urine Total 1200 ml 1100 ml # Voids 3 Objective General Appearance: WD/WN, no apparent distress Lines, tubes and drains: peripheral, central line HEENT: normocephalic, atraumatic Neck: non-tender, normal alignment Respiratory/Chest: lungs clear Breasts: no masses Cardiovascular/Chest: normal peripheral pulses Abdomen: normal bowel sounds, soft Genitourinary/Rectal: normal genital exam Extremities: normal range of motion Microbiology Date/Time Source Procedure Growth Status 08/09/19 11:15 Blood Blood Culture - Preliminary NO GROWTH AFTER 24 HOURS Resulted 08/09/19 11:05 Blood Blood Culture - Preliminary NO GROWTH AFTER 24 HOURS Resulted Laboratory Tests 08/10/19 07:43: White Blood Count 6.6, Red Blood Count 4.35, Hemoglobin 11.1L, Hematocrit 36.0L , Mean Corpuscular Volume 83, Mean Corpuscular Hemoglobin 25.6L, Mean Corpuscular Hemoglobin Concent 30.9L, Red Cell Distribution Width 14.6, Platelet Count 272, Mean Platelet Volume 4.8L, Neutrophils (%) (Auto) 64.9, Lymphocytes (%) (Auto) 23.5, Monocytes (%) (Auto) 7.1, Eosinophils (%) (Auto) 3.9H, Basophils (%) (Auto) 0.6, Differential Total Cells Counted 100, Neutrophils % (Manual) 61, Lymphocytes % (Manual) 23, Monocytes % (Manual) 12H, Eosinophils % (Manual) 4H, Basophils % (Manual) 0, Band Neutrophils 0, Platelet Estimate Adequate, Platelet Morphology Normal, Erythrocyte Sedimentation Rate 97H, Reticulocyte Count 1.0, Prothrombin Time 9.7, Prothromb Time International Ratio 0.9, Activated Partial Thromboplast Time 26, Iron Level 41L, Total Iron Binding Capacity 225L, Percent Iron Saturation 18, Unsaturated Iron Binding 184 , Lactate Dehydrogenase 159, Carcinoembryonic Antigen [Pending], Vitamin B12 Level 763, Folate 8.4L Current Medications Medications (Trade) Dose Ordered Sig/[place] Route PRN Reason Start Time Stop Time Status Last Admin Dose Admin Acetaminophen (Tylenol) 650 mg Q6H PRN ORAL For Pain 08/07/19 06:30 09/06/19 06:29 Amlodipine Besylate (Norvasc) 10 mg DAILY ORAL 08/07/19 09:00 09/06/19 08:59 08/10/19 09:56 Aspirin (Ecotrin) 81 mg DAILY ORAL 08/07/19 09:00 09/06/19 08:59 08/10/19 09:56 Ceftriaxone Sodium 1 gm/ Dextrose 55 ml @ 110 mls/hr Q24H IVPB 08/09/19 12:00 08/16/19 11:59 08/10/19 12:00 Clonidine HCl (Catapres Tab) 0.1 mg Q6H PRN ORAL PRN SBP>160 08/07/19 09:00 09/06/19 08:44 Dextrose (Dextrose 50%) 25 ml Q30M PRN IV Hypoglycemia 08/07/19 08:30 09/06/19 08:29 Dextrose (Dextrose 50%) 50 ml Q30M PRN IV Hypoglycemia 08/07/19 08:30 09/06/19 08:29 Ferrous Sulfate (Feosol) 325 mg DAILY ORAL 08/07/19 09:00 09/06/19 08:59 08/10/19 09:55 Heparin Sodium (Porcine) (Heparin 5000 units/ml) 5,000 units EVERY 12 HOURS SUBQ 08/07/19 10:15 09/06/19 10:14 08/10/19 21:13 Hydralazine HCl (Apresoline) 20 mg DAILY ORAL 08/07/19 09:00 09/06/19 08:59 08/10/19 09:56 Insulin Aspart (NovoLOG) EVERY 6 HOURS SUBQ 08/10/19 18:00 08/23/19 17:59 08/11/19 06:36 Insulin Detemir (Levemir) 6 units Q24H SUBQ 08/07/19 09:00 09/06/19 08:59 08/10/19 09:58 Selin Carias MD Aug 11, 2019 07:00
[2019-08-11 08:00] VITALS: BP 128/69
--- NOTE | 2019-08-11 08:00 | NUR ---
HAND-OFF: Report given to ELY Phan
--- NOTE | 2019-08-11 08:00 | NUR ---
NURSE NOTES: Patient stable, awake and alert x1, non verbal but responds to name. Withdraws to pain. RR even and unlabored on 2L NC. No s/sx of distress. NGT at 70cm. Shaver draining well to gravity. No strength to RT hand. LT hand strength 1/5. No strength to BLE. Lung sounds diminished. Stomach bowel sounds present. Feeding infusing at 45mL/hr. No IV at this time. Skin is intact. Will continue to monitor.
[2019-08-11 08:25] LABS: BASOPHILS % (AUTO) 0.7 % (0.0-2.0); EOSINOPHILS % (AUTO) 3.7 % (0.0-3.0); HEMATOCRIT 36.3 % (37.0-47.0); HEMOGLOBIN 11.2 G/DL (12.0-16.0); MEAN CORPUSCULAR VOLUME 82 FL (80-99); NEUTROPHILS % (AUTO) 62.5 % (45.0-75.0); PLATELET COUNT 288 K/UL (150-450); RED CELL DISTRIBUTION WIDTH 14.6 % (11.6-14.8); WHITE BLOOD COUNT 6.9 K/UL (4.8-10.8)
[2019-08-11 08:41] LABS: ANION GAP 6 mmol/L (5-15); BLOOD UREA NITROGEN 21 mg/dL (7-18); CALCIUM 9.4 MG/DL (8.5-10.1); CARBON DIOXIDE 32 MMOL/L (21-32); CHLORIDE 104 MMOL/L (98-107); POTASSIUM 4.4 MMOL/L (3.5-5.1); SODIUM 142 MMOL/L (136-145)
[2019-08-11] MEDS: HydrALAZINE 10mg Tab ORAL SCH (09:45)
[2019-08-11] MEDS: Aspirin EC 81mg tab ORAL SCH (09:45)
[2019-08-11] MEDS: Levemir Flexpen SUBQ SCH (09:47)
[2019-08-11] MEDS: Heparin 5000 units/ml inj SUBQ SCH ×2 (09:47→21:47)
--- NOTE | 2019-08-11 11:00 | NUR ---
NURSE NOTES: Patient pulled out NGT. Orders received to reinsert and CXR to follow.
[2019-08-11 12:00] VITALS: BP 131/65
[2019-08-11] MEDS: cefTRIAXone 1 GM in D5W 55 ML IVPB SCH (12:00)
--- NOTE | 2019-08-11 12:36 | Infectious Diseases Prog Note ---
Assessment/Plan Assessment/Plan 89 yo male with PMHx of Dementia, DM, HTN, CHD and CVA/TIA who presented from her shelter with cough and SOB. UTI UA (+) Urine Cx - -20k GBS Afebrile No Leukocytosis Positive Blood Cx - Likely a contaminant Blood Cx 08/07/19 4/4 S. capitis; 08/09 Bcx NTD Cough/Dyspnea -08/07 CXR: Limited evaluation. Query mild pulmonary vascular congestion Dementia DM HTN CVA/TIA CHF PLAN - Continue Ceftriaxone #3/3 -08/06/19 S/P Cefepime - f/u Repeat Blood Cx - Repeat CBC - Monitor CBC and Temps Thank you for this consult. [facility] will continue to follow the patient with you during this hospitalization. Subjective Allergies: Coded Allergies: No Known Allergies (Unverified , 04/03/13) Subjective afebrile no leukocytosis Objective Vital Signs Last 24 Hour Vital Signs Date Time Temp Pulse Resp B/P (MAP) Pulse Ox O2 Delivery O2 Flow Rate FiO2 08/11/19 09:45 128/69 08/11/19 09:45 89 128/69 08/11/19 04:00 87 08/11/19 04:00 98.0 86 20 133/90 (104) 95 08/11/19 00:00 97.5 99 20 155/80 (105) 98 08/11/19 00:00 93 08/10/19 21:00 Nasal Cannula 3.0 08/10/19 20:00 98.1 85 18 153/90 (111) 100 08/10/19 20:00 89 08/10/19 16:00 86 08/10/19 16:00 98.2 86 18 137/82 (100) 95 Height (Feet): 5 Height (Inches): 9.00 Weight (Pounds): 207 Objective General Appearance: WD/WN, no apparent distress Lines, tubes and drains: peripheral, central line HEENT: normocephalic, atraumatic Neck: non-tender, normal alignment Respiratory/Chest: lungs clear Cardiovascular/Chest: normal peripheral pulses Abdomen: normal bowel sounds, soft Extremities: normal range of motion Microbiology Date/Time Source Procedure Growth Status 08/09/19 11:15 Blood Blood Culture - Preliminary NO GROWTH AFTER 24 HOURS Resulted 08/09/19 11:05 Blood Blood Culture - Preliminary NO GROWTH AFTER 24 HOURS Resulted Laboratory Tests Test 08/11/19 06:30 White Blood Count 6.9 K/UL (4.8-10.8) Red Blood Count 4.40 M/UL (4.20-5.40) Hemoglobin 11.2 G/DL (12.0-16.0) L Hematocrit 36.3 % (37.0-47.0) L Mean Corpuscular Volume 82 FL (80-99) Mean Corpuscular Hemoglobin 25.5 PG (27.0-31.0) L Mean Corpuscular Hemoglobin Concent 31.0 G/DL (32.0-36.0) L Red Cell Distribution Width 14.6 % (11.6-14.8) Platelet Count 288 K/UL (150-450) Mean Platelet Volume 4.6 FL (6.5-10.1) L Neutrophils (%) (Auto) 62.5 % (45.0-75.0) Lymphocytes (%) (Auto) 22.0 % (20.0-45.0) Monocytes (%) (Auto) 11.0 % (1.0-10.0) H Eosinophils (%) (Auto) 3.7 % (0.0-3.0) H Basophils (%) (Auto) 0.7 % (0.0-2.0) Sodium Level 142 MMOL/L (136-145) Potassium Level 4.4 MMOL/L (3.5-5.1) Chloride Level 104 MMOL/L (98-107) Carbon Dioxide Level 32 MMOL/L (21-32) Anion Gap 6 mmol/L (5-15) Blood Urea Nitrogen 21 mg/dL (7-18) H Creatinine 1.0 MG/DL (0.55-1.30) Estimat Glomerular Filtration Rate mL/min (>60) Glucose Level 177 MG/DL (74-106) H Calcium Level 9.4 MG/DL (8.5-10.1) Current Medications Medications (Trade) Dose Ordered Sig/Samaria Route PRN Reason Start Time Stop Time Status Last Admin Dose Admin Acetaminophen (Tylenol) 650 mg Q6H PRN ORAL For Pain 08/07/19 06:30 09/06/19 06:29 Amlodipine Besylate (Norvasc) 10 mg DAILY ORAL 08/07/19 09:00 09/06/19 08:59 08/11/19 09:45 Aspirin (Ecotrin) 81 mg DAILY ORAL 08/07/19 09:00 09/06/19 08:59 08/11/19 09:45 Ceftriaxone Sodium 1 gm/ Dextrose 55 ml @ 110 mls/hr Q24H IVPB 08/09/19 12:00 08/16/19 11:59 08/10/19 12:00 Clonidine HCl (Catapres Tab) 0.1 mg Q6H PRN ORAL PRN SBP>160 08/07/19 09:00 09/06/19 08:44 Dextrose (Dextrose 50%) 25 ml Q30M PRN IV Hypoglycemia 08/07/19 08:30 09/06/19 08:29 Dextrose (Dextrose 50%) 50 ml Q30M PRN IV Hypoglycemia 08/07/19 08:30 09/06/19 08:29 Ferrous Sulfate (Feosol) 325 mg DAILY ORAL 08/07/19 09:00 09/06/19 08:59 08/11/19 09:45 Heparin Sodium (Porcine) (Heparin 5000 units/ml) 5,000 units EVERY 12 HOURS SUBQ 08/07/19 10:15 09/06/19 10:14 08/11/19 09:47 Hydralazine HCl (Apresoline) 20 mg DAILY ORAL 08/07/19 09:00 09/06/19 08:59 08/11/19 09:45 Insulin Aspart (NovoLOG) EVERY 6 HOURS SUBQ 08/10/19 18:00 08/23/19 17:59 08/11/19 12:16 Insulin Detemir (Levemir) 6 units Q24H SUBQ 08/07/19 09:00 09/06/19 08:59 08/11/19 09:47 Latoya Saini M.D. Aug 11, 2019 12:35
[2019-08-11] MEDS ORDERED: Tubing IV Secondary IV ONE (15:33)
--- NOTE | 2019-08-11 15:55 | Internal Med Progress Note ---
Subjective Date of Service: Aug 11, 2019 Physician Name Caesar Pizano Attending Physician Selin Carias MD Current Medications Medications (Trade) Dose Ordered Sig/Samaria Route PRN Reason Start Time Stop Time Status Last Admin Dose Admin Acetaminophen (Tylenol) 650 mg Q6H PRN ORAL For Pain 08/07/19 06:30 09/06/19 06:29 Amlodipine Besylate (Norvasc) 10 mg DAILY ORAL 08/07/19 09:00 09/06/19 08:59 08/11/19 09:45 Aspirin (Ecotrin) 81 mg DAILY ORAL 08/07/19 09:00 09/06/19 08:59 08/11/19 09:45 Ceftriaxone Sodium 1 gm/ Dextrose 55 ml @ 110 mls/hr Q24H IVPB 08/09/19 12:00 08/16/19 11:59 08/10/19 12:00 Clonidine HCl (Catapres Tab) 0.1 mg Q6H PRN ORAL PRN SBP>160 08/07/19 09:00 09/06/19 08:44 Dextrose (Dextrose 50%) 25 ml Q30M PRN IV Hypoglycemia 08/07/19 08:30 09/06/19 08:29 Dextrose (Dextrose 50%) 50 ml Q30M PRN IV Hypoglycemia 08/07/19 08:30 09/06/19 08:29 Ferrous Sulfate (Feosol) 325 mg DAILY ORAL 08/07/19 09:00 09/06/19 08:59 08/11/19 09:45 Heparin Sodium (Porcine) (Heparin 5000 units/ml) 5,000 units EVERY 12 HOURS SUBQ 08/07/19 10:15 09/06/19 10:14 08/11/19 09:47 Hydralazine HCl (Apresoline) 20 mg DAILY ORAL 08/07/19 09:00 09/06/19 08:59 08/11/19 09:45 Insulin Aspart (NovoLOG) EVERY 6 HOURS SUBQ 08/10/19 18:00 08/23/19 17:59 08/11/19 12:16 Insulin Detemir (Levemir) 6 units Q24H SUBQ 08/07/19 09:00 09/06/19 08:59 08/11/19 09:47 Allergies: Coded Allergies: No Known Allergies (Unverified , 04/03/13) ROS Limited/Unobtainable: Yes Subjective 89 YO F admitted with cough. Now UTI and sepsis. Cover for Int Med-DR De Paz Objective Last Vital Signs Date Time Temp Pulse Resp B/P (MAP) Pulse Ox O2 Delivery O2 Flow Rate FiO2 08/11/19 12:00 97.9 102 19 131/65 (87) 96 08/11/19 09:00 Nasal Cannula 3.0 08/10/19 08:43 32 Laboratory Tests Test 08/11/19 06:30 White Blood Count 6.9 K/UL (4.8-10.8) Red Blood Count 4.40 M/UL (4.20-5.40) Hemoglobin 11.2 G/DL (12.0-16.0) L Hematocrit 36.3 % (37.0-47.0) L Mean Corpuscular Volume 82 FL (80-99) Mean Corpuscular Hemoglobin 25.5 PG (27.0-31.0) L Mean Corpuscular Hemoglobin Concent 31.0 G/DL (32.0-36.0) L Red Cell Distribution Width 14.6 % (11.6-14.8) Platelet Count 288 K/UL (150-450) Mean Platelet Volume 4.6 FL (6.5-10.1) L Neutrophils (%) (Auto) 62.5 % (45.0-75.0) Lymphocytes (%) (Auto) 22.0 % (20.0-45.0) Monocytes (%) (Auto) 11.0 % (1.0-10.0) H Eosinophils (%) (Auto) 3.7 % (0.0-3.0) H Basophils (%) (Auto) 0.7 % (0.0-2.0) Sodium Level 142 MMOL/L (136-145) Potassium Level 4.4 MMOL/L (3.5-5.1) Chloride Level 104 MMOL/L (98-107) Carbon Dioxide Level 32 MMOL/L (21-32) Anion Gap 6 mmol/L (5-15) Blood Urea Nitrogen 21 mg/dL (7-18) H Creatinine 1.0 MG/DL (0.55-1.30) Estimat Glomerular Filtration Rate mL/min (>60) Glucose Level 177 MG/DL (74-106) H Calcium Level 9.4 MG/DL (8.5-10.1) Microbiology Date/Time Source Procedure Growth Status 08/09/19 11:15 Blood Blood Culture - Preliminary NO GROWTH AFTER 24 HOURS Resulted 08/09/19 11:05 Blood Blood Culture - Preliminary NO GROWTH AFTER 24 HOURS Resulted Intake and Output 08/10/19 08/11/19 19:00 07:00 Output Total 1200 ml 1100 ml Balance -1200 ml -1100 ml Output Urine Total 1200 ml 1100 ml # Voids 3 Objective PHYSICAL EXAMINATION: GENERAL: The patient is awake, responsive, no acute distress. HEENT: NG tube in the nose. NECK: Supple. No JVD. LUNGS: Good air entry. No wheezing or rales. Decreased air in bases. HEART: S1, S2. Distant heart sounds. No murmurs or gallops. ABDOMEN: Soft, nondistended, nontender. Morbidly obese. EXTREMITIES: No cyanosis, clubbing, or edema. NEUROLOGIC: Limited secondary to the patient's status. The patient is moving upper extremities spontaneously. Lower extremities, limited range of motion. RECTAL: Refused and deferred. GENITOURINARY: Refused and deferred. PSYCHIATRIC: Mood and affect unable to obtain secondary to the patient's status. Assessment/Plan Assessment/Plan ASSESSMENT: 1. Sepsis=Staph Capitus, UTI=Strep Grp B. 2. Morbid obesity. 3. Dysphagia, status post NG tube feeding. 4. Advanced dementia. 5. Diabetes type 2. 6. Hypertension. 7. Prior history of CVA. 8. CHF. PLAN: 1. Admit the patient to telemetry. 2. antibiotic=Rocephin. We will 3. Codestatus at this time is Full Code. 4. Pulmonary consultation= Dr. Selin Carias 5. ID consultation = Dr. Sina Artis. Caesar Pizano MD Aug 11, 2019 15:55
[2019-08-11 16:00] VITALS: BP 149/58
--- NOTE | 2019-08-11 16:21 | Diagnostic Imaging Report ---
Indication: Post nasogastric tube placement Technique: Supine view of the abdomen Comparison: 08/08/2019 Findings: Again demonstrated is a nasogastric tube, tip now projected at the level of the gastric antrum. Bowel gas pattern is unremarkable Impression: Satisfactory position of nasogastric tube No acute process This agrees with the preliminary interpretation provided overnight by [facility] teleradiology service.
--- NOTE | 2019-08-11 19:40 | NUR ---
NURSE NOTES: Received a report from ELY Jung. Pt is in stable condition. AOX1. Nonverbal. Uses nasal cannula 3l. No pain/discomfort noted. No IV access, will insert IV later. HOB elevated. NGT on L nare. NGT feeding is running. Shaver catheter is draining. B soft wrist restraints noted. Bed in lowest position. Bed alarm is on. Call light within reach. Will continue to monitor.
--- NOTE | 2019-08-11 19:46 | NUR ---
AND-OFF: Report given to Velia Keith RN. Patient stable. Endorsed plan of care
[2019-08-11 20:00] VITALS: BP 156/73
--- NOTE | 2019-08-11 21:15 | NUR ---
NURSE NOTES: Transferred the pt to . Pt is in stable condition. AOX1. Nonverbal. Uses nasal cannula 3l. No pain/discomfort noted. No IV access, will insert IV later. HOB elevated. NGT on L nare. NGT feeding is running. Shaver catheter is draining. B soft wrist restraints noted. Bed in lowest position. Bed alarm is on. Call light within reach. Will continue to monitor.
[2019-08-12] VITALS (7 sets, daily range): BP systolic 128–162; BP diastolic 69–94
[2019-08-12] MEDS: NovoLOG Insulin Flexpen SUBQ SCH ×4 (00:47→17:13)
--- NOTE | 2019-08-12 07:00 | NUR ---
HAND-OFF: Report given to ELY Palumbo.
--- NOTE | 2019-08-12 07:15 | NUR ---
NURSE NOTES: Received patient in bed asleep, no sign of distress, on O2 at 2 LPM via nasal cannula no fascial grimace noted,HL patent, NGT feeding on going, HOB elevated at 30 degree,on aspiration precaution Shaver catheter is draining. Andrew soft wrist restraints noted. Bed in lowest position. Bed alarm is on. Call light within reach. Will continue to monitor. arnold arroyo
[2019-08-12 07:42] LABS: EOSINOPHILS % (AUTO) 3.2 % (0.0-3.0); HEMATOCRIT 37.3 % (37.0-47.0); HEMOGLOBIN 11.5 G/DL (12.0-16.0); LYMPHOCYTES % (AUTO) 20.2 % (20.0-45.0); MEAN CORPUSCULAR VOLUME 82 FL (80-99); MONOCYTES % (AUTO) 4.9 % (1.0-10.0); NEUTROPHILS % (AUTO) 70.8 % (45.0-75.0); PLATELET COUNT 326 K/UL (150-450); RED BLOOD COUNT 4.53 M/UL (4.20-5.40); RED CELL DISTRIBUTION WIDTH 12.3 % (11.6-14.8); WHITE BLOOD COUNT 8.4 K/UL (4.8-10.8)
[2019-08-12 08:02] LABS: ALANINE AMINOTRANSFERASE 32 U/L (12-78); ALBUMIN 3.3 G/DL (3.4-5.0); ALBUMIN/GLOBULIN RATIO 0.6 (1.0-2.7); ALKALINE PHOSPHATASE 109 U/L (46-116); ANION GAP 4 mmol/L (5-15); ASPARTATE AMINO TRANSFERASE 21 U/L (15-37); BILIRUBIN,TOTAL 0.2 MG/DL (0.2-1.0); BLOOD UREA NITROGEN 18 mg/dL (7-18); CALCIUM 9.6 MG/DL (8.5-10.1); CARBON DIOXIDE 33 MMOL/L (21-32); CHLORIDE 102 MMOL/L (98-107); CREATININE 0.9 MG/DL (0.55-1.30); POTASSIUM 3.8 MMOL/L (3.5-5.1); SODIUM 139 MMOL/L (136-145)
[2019-08-12] MEDS: HydrALAZINE 10mg Tab ORAL SCH (08:17)
[2019-08-12] MEDS: Aspirin EC 81mg tab ORAL SCH (08:17)
[2019-08-12] MEDS: Heparin 5000 units/ml inj SUBQ SCH ×2 (08:18→21:49)
--- NOTE | 2019-08-12 09:25 | NUR ---
RADIOLOGY DEPT., CHEST X-RAY COMPLETED.-P.DYE
--- NOTE | 2019-08-12 09:34 | Diagnostic Imaging Report ---
Indication: Shortness of breath Technique: One view of the chest Comparison: 08/06/2019 Findings: There is a nasogastric tube in place, tip projected at the level of the gastric fundus body junction. There is mild generalized interstitial prominence, appears similar to the previous study and earlier exams, may have a chronic component. No focal airspace consolidation. Pleural spaces are clear. The heart size is normal. Impression: Satisfactory nasogastric intubation Mild interstitial prominence, nonspecific, may also have a chronic component, unchanged from previous
[2019-08-12] MEDS: Levemir Flexpen SUBQ SCH (09:37)
--- NOTE | 2019-08-12 10:16 | Infectious Diseases Prog Note ---
Assessment/Plan Assessment/Plan 89 yo male with PMHx of Dementia, DM, HTN, CHD and CVA/TIA who presented from her snf with cough and SOB. UTI UA (+) Urine Cx - 10-20k GBS Afebrile No Leukocytosis Positive Blood Cx - Likely a contaminant Blood Cx 08/07/19 4/ S. capitis; 08/09 Bcx NTD Cough/Dyspnea -08/12 CXR: Mild interstitial prominence, nonspecific, may also have a chronic component, unchanged from previous -08/07 CXR: Limited evaluation. Query mild pulmonary vascular congestion Dementia DM HTN CVA/TIA CHF PLAN - Continue Ceftriaxone #3/3 -08/06/19 S/P Cefepime - f/u Repeat Blood Cx - Repeat CBC - Monitor CBC and Temps Thank you for this consult. [facility] will continue to follow the patient with you during this hospitalization. Subjective Allergies: Coded Allergies: No Known Allergies (Unverified , 04/03/13) Subjective afebrile no leukocytosis Objective Vital Signs Last 24 Hour Vital Signs Date Time Temp Pulse Resp B/P (MAP) Pulse Ox O2 Delivery O2 Flow Rate FiO2 08/12/19 09:25 82 142/69 (93) 08/12/19 09:00 Nasal Cannula 3.0 08/12/19 08:29 97.5 90 19 162/94 (116) 99 08/12/19 08:17 140/85 08/12/19 08:17 85 140/85 08/12/19 08:09 94 Nasal Cannula 3.0 32 08/12/19 04:00 98.2 85 18 140/85 (103) 99 08/12/19 00:00 98.1 100 20 128/72 (90) 98 08/11/19 21:00 Nasal Cannula 3.0 08/11/19 20:00 98.2 101 20 156/73 (100) 98 08/11/19 16:00 83 08/11/19 16:00 97.5 87 19 149/58 (88) 100 08/11/19 12:00 97.9 102 19 131/65 (87) 96 08/11/19 12:00 81 Height (Feet): 5 Height (Inches): 9.00 Weight (Pounds): 199 Objective General Appearance: WD/WN, no apparent distress Lines, tubes and drains: peripheral, central line HEENT: normocephalic, atraumatic Neck: non-tender, normal alignment Respiratory/Chest: lungs clear Cardiovascular/Chest: normal peripheral pulses Abdomen: normal bowel sounds, soft Extremities: normal range of motion Microbiology Date/Time Source Procedure Growth Status 08/09/19 11:15 Blood Blood Culture - Preliminary NO GROWTH AFTER 48 HOURS Resulted 08/09/19 11:05 Blood Blood Culture - Preliminary NO GROWTH AFTER 48 HOURS Resulted Laboratory Tests Test 08/12/19 07:00 White Blood Count 8.4 K/UL (4.8-10.8) Red Blood Count 4.53 M/UL (4.20-5.40) Hemoglobin 11.5 G/DL (12.0-16.0) L Hematocrit 37.3 % (37.0-47.0) Mean Corpuscular Volume 82 FL (80-99) Mean Corpuscular Hemoglobin 25.5 PG (27.0-31.0) L Mean Corpuscular Hemoglobin Concent 30.9 G/DL (32.0-36.0) L Red Cell Distribution Width 12.3 % (11.6-14.8) Platelet Count 326 K/UL (150-450) Mean Platelet Volume 4.6 FL (6.5-10.1) L Neutrophils (%) (Auto) 70.8 % (45.0-75.0) Lymphocytes (%) (Auto) 20.2 % (20.0-45.0) Monocytes (%) (Auto) 4.9 % (1.0-10.0) Eosinophils (%) (Auto) 3.2 % (0.0-3.0) H Basophils (%) (Auto) 1.0 % (0.0-2.0) Sodium Level 139 MMOL/L (136-145) Potassium Level 3.8 MMOL/L (3.5-5.1) Chloride Level 102 MMOL/L (98-107) Carbon Dioxide Level 33 MMOL/L (21-32) H Anion Gap 4 mmol/L (5-15) L Blood Urea Nitrogen 18 mg/dL (7-18) Creatinine 0.9 MG/DL (0.55-1.30) Estimat Glomerular Filtration Rate mL/min (>60) Glucose Level 218 MG/DL (74-106) H Calcium Level 9.6 MG/DL (8.5-10.1) Total Bilirubin 0.2 MG/DL (0.2-1.0) Aspartate Amino Transf (AST/SGOT) 21 U/L (15-37) Alanine Aminotransferase (ALT/SGPT) 32 U/L (12-78) Alkaline Phosphatase 109 U/L (46-116) Pro-B-Type Natriuretic Peptide 116 pg/mL (0-125) Total Protein 8.7 G/DL (6.4-8.2) H Albumin 3.3 G/DL (3.4-5.0) L Globulin 5.4 g/dL Albumin/Globulin Ratio 0.6 (1.0-2.7) L Current Medications Medications (Trade) Dose Ordered Sig/Samaria Route PRN Reason Start Time Stop Time Status Last Admin Dose Admin Acetaminophen (Tylenol) 650 mg Q6H PRN ORAL For Pain 08/07/19 06:30 09/06/19 06:29 Amlodipine Besylate (Norvasc) 10 mg DAILY ORAL 08/07/19 09:00 09/06/19 08:59 08/12/19 08:17 Aspirin (Ecotrin) 81 mg DAILY ORAL 08/07/19 09:00 09/06/19 08:59 08/12/19 08:17 Ceftriaxone Sodium 1 gm/ Dextrose 55 ml @ 110 mls/hr Q24H IVPB 08/09/19 12:00 08/16/19 11:59 08/10/19 12:00 Clonidine HCl (Catapres Tab) 0.1 mg Q6H PRN ORAL PRN SBP>160 08/07/19 09:00 09/06/19 08:44 Dextrose (Dextrose 50%) 25 ml Q30M PRN IV Hypoglycemia 08/07/19 08:30 09/06/19 08:29 Dextrose (Dextrose 50%) 50 ml Q30M PRN IV Hypoglycemia 08/07/19 08:30 09/06/19 08:29 Ferrous Sulfate (Feosol) 325 mg DAILY ORAL 08/07/19 09:00 09/06/19 08:59 08/12/19 08:17 Heparin Sodium (Porcine) (Heparin 5000 units/ml) 5,000 units EVERY 12 HOURS SUBQ 08/07/19 10:15 09/06/19 10:14 08/12/19 08:18 Hydralazine HCl (Apresoline) 20 mg DAILY ORAL 08/07/19 09:00 09/06/19 08:59 08/12/19 08:17 Insulin Aspart (NovoLOG) EVERY 6 HOURS SUBQ 08/10/19 18:00 08/23/19 17:59 08/12/19 06:07 Insulin Detemir (Levemir) 6 units Q24H SUBQ 08/07/19 09:00 09/06/19 08:59 08/12/19 09:37 Latoya Saini M.D. Aug 12, 2019 10:16
[2019-08-12] MEDS: cefTRIAXone 1 GM in D5W 55 ML IVPB SCH (12:48)
--- NOTE | 2019-08-12 13:52 | Pulmonology Progress Note ---
Assessment/Plan Problems: (1) Bacteremia (2) UTI (urinary tract infection) (3) Advanced dementia (4) DM (diabetes mellitus) (5) HTN (hypertension) Assessment/Plan no new complains looks comfortable NG tube is in conn culture, BC positive for GPC, ? contaminated iv abx check electrolytes sliding scale swallow evaluation when more awake dvt prophylaxis social media project manager to arrange for family meeting, I would recommend hospice and end of life care, mostly because of age and hx of breast cancer. Subjective ROS Limited/Unobtainable: Yes HEENT: Repors: no symptoms Allergies: Coded Allergies: No Known Allergies (Unverified , 04/03/13) Objective Last 24 Hour Vital Signs Date Time Temp Pulse Resp B/P (MAP) Pulse Ox O2 Delivery O2 Flow Rate FiO2 08/12/19 11:53 98.0 89 19 148/88 (108) 99 08/12/19 09:25 82 142/69 (93) 08/12/19 09:00 Nasal Cannula 3.0 08/12/19 08:29 97.5 90 19 162/94 (116) 99 08/12/19 08:17 140/85 08/12/19 08:17 85 140/85 08/12/19 08:09 94 Nasal Cannula 3.0 32 08/12/19 04:00 98.2 85 18 140/85 (103) 99 08/12/19 00:00 98.1 100 20 128/72 (90) 98 08/11/19 21:00 Nasal Cannula 3.0 08/11/19 20:00 98.2 101 20 156/73 (100) 98 08/11/19 16:00 83 08/11/19 16:00 97.5 87 19 149/58 (88) 100 Intake and Output 08/11/19 08/12/19 19:00 07:00 Intake Total 350 ml 740 ml Output Total 500 ml 450 ml Balance -150 ml 290 ml Intake Free Water 100 ml 200 ml Tube Feeding 250 ml 540 ml Output Urine Total 500 ml 450 ml Objective General Appearance: WD/WN, no apparent distress Lines, tubes and drains: peripheral, central line HEENT: normocephalic, atraumatic Neck: non-tender, normal alignment Respiratory/Chest: lungs clear Breasts: no masses Cardiovascular/Chest: normal peripheral pulses Abdomen: normal bowel sounds, soft Genitourinary/Rectal: normal genital exam Extremities: normal range of motion Laboratory Tests 08/12/19 07:00: White Blood Count 8.4, Red Blood Count 4.53, Hemoglobin 11.5L, Hematocrit 37.3, Mean Corpuscular Volume 82, Mean Corpuscular Hemoglobin 25.5L, Mean Corpuscular Hemoglobin Concent 30.9L, Red Cell Distribution Width 12.3, Platelet Count 326, Mean Platelet Volume 4.6L, Neutrophils (%) (Auto) 70.8, Lymphocytes (%) (Auto) 20.2, Monocytes (%) (Auto) 4.9, Eosinophils (%) (Auto) 3.2H, Basophils (%) (Auto ) 1.0, Sodium Level 139, Potassium Level 3.8, Chloride Level 102, Carbon Dioxide Level 33H, Anion Gap 4L, Blood Urea Nitrogen 18, Creatinine 0.9, Estimat Glomerular Filtration Rate , Glucose Level 218H, Calcium Level 9.6, Total Bilirubin 0.2, Aspartate Amino Transf (AST/SGOT) 21, Alanine Aminotransferase (ALT/SGPT) 32, Alkaline Phosphatase 109, Pro-B-Type Natriuretic Peptide 116, Total Protein 8.7H, Albumin 3.3L, Globulin 5.4, Albumin /Globulin Ratio 0.6L Current Medications Medications (Trade) Dose Ordered Sig/Samaria Route PRN Reason Start Time Stop Time Status Last Admin Dose Admin Acetaminophen (Tylenol) 650 mg Q6H PRN ORAL For Pain 08/07/19 06:30 09/06/19 06:29 Amlodipine Besylate (Norvasc) 10 mg DAILY ORAL 08/07/19 09:00 09/06/19 08:59 08/12/19 08:17 Aspirin (Ecotrin) 81 mg DAILY ORAL 08/07/19 09:00 09/06/19 08:59 08/12/19 08:17 Ceftriaxone Sodium 1 gm/ Dextrose 55 ml @ 110 mls/hr Q24H IVPB 08/09/19 12:00 08/16/19 11:59 08/12/19 12:48 Clonidine HCl (Catapres Tab) 0.1 mg Q6H PRN ORAL PRN SBP>160 08/07/19 09:00 09/06/19 08:44 Dextrose (Dextrose 50%) 25 ml Q30M PRN IV Hypoglycemia 08/07/19 08:30 09/06/19 08:29 Dextrose (Dextrose 50%) 50 ml Q30M PRN IV Hypoglycemia 08/07/19 08:30 09/06/19 08:29 Ferrous Sulfate (Feosol) 325 mg DAILY ORAL 08/07/19 09:00 09/06/19 08:59 08/12/19 08:17 Heparin Sodium (Porcine) (Heparin 5000 units/ml) 5,000 units EVERY 12 HOURS SUBQ 08/07/19 10:15 09/06/19 10:14 08/12/19 08:18 Hydralazine HCl (Apresoline) 20 mg DAILY ORAL 08/07/19 09:00 09/06/19 08:59 08/12/19 08:17 Insulin Aspart (NovoLOG) EVERY 6 HOURS SUBQ 08/10/19 18:00 08/23/19 17:59 08/12/19 11:45 Insulin Detemir (Levemir) 6 units Q24H SUBQ 08/07/19 09:00 09/06/19 08:59 08/12/19 09:37 Selin Carias MD Aug 12, 2019 13:52
--- NOTE | 2019-08-12 19:15 | Internal Med Progress Note ---
Subjective Date of Service: Aug 12, 2019 Physician Name JericaCaesar Attending Physician Selin Carias MD Current Medications Medications (Trade) Dose Ordered Sig/Samaria Route PRN Reason Start Time Stop Time Status Last Admin Dose Admin Acetaminophen (Tylenol) 650 mg Q6H PRN ORAL For Pain 08/07/19 06:30 09/06/19 06:29 Amlodipine Besylate (Norvasc) 10 mg DAILY ORAL 08/07/19 09:00 09/06/19 08:59 08/12/19 08:17 Aspirin (Ecotrin) 81 mg DAILY ORAL 08/07/19 09:00 09/06/19 08:59 08/12/19 08:17 Bisacodyl (Dulcolax) 10 mg DAILYPRN PRN RECTAL Constipation 08/12/19 19:00 09/11/19 18:59 Ceftriaxone Sodium 1 gm/ Dextrose 55 ml @ 110 mls/hr Q24H IVPB 08/09/19 12:00 08/16/19 11:59 08/12/19 12:48 Clonidine HCl (Catapres Tab) 0.1 mg Q6H PRN ORAL PRN SBP>160 08/07/19 09:00 09/06/19 08:44 Dextrose (Dextrose 50%) 25 ml Q30M PRN IV Hypoglycemia 08/07/19 08:30 09/06/19 08:29 Dextrose (Dextrose 50%) 50 ml Q30M PRN IV Hypoglycemia 08/07/19 08:30 09/06/19 08:29 Docusate Sodium (Colace) 100 mg TWICE A DAY ORAL 08/12/19 19:00 09/11/19 18:59 Ferrous Sulfate (Feosol) 325 mg DAILY ORAL 08/07/19 09:00 09/06/19 08:59 08/12/19 08:17 Heparin Sodium (Porcine) (Heparin 5000 units/ml) 5,000 units EVERY 12 HOURS SUBQ 08/07/19 10:15 09/06/19 10:14 08/12/19 08:18 Hydralazine HCl (Apresoline) 20 mg DAILY ORAL 08/07/19 09:00 09/06/19 08:59 08/12/19 08:17 Insulin Aspart (NovoLOG) EVERY 6 HOURS SUBQ 08/10/19 18:00 08/23/19 17:59 08/12/19 17:13 Insulin Detemir (Levemir) 6 units Q24H SUBQ 08/07/19 09:00 09/06/19 08:59 08/12/19 09:37 Allergies: Coded Allergies: No Known Allergies (Unverified , 04/03/13) ROS Limited/Unobtainable: Yes Subjective 89 YO F admitted with cough. Now UTI and sepsis. Cover for Int Boris-DR De Paz Objective Last Vital Signs Date Time Temp Pulse Resp B/P (MAP) Pulse Ox O2 Delivery O2 Flow Rate FiO2 08/12/19 16:13 97.6 87 18 138/76 (96) 96 08/12/19 09:00 Nasal Cannula 3.0 08/12/19 08:09 32 Laboratory Tests Test 08/12/19 07:00 White Blood Count 8.4 K/UL (4.8-10.8) Red Blood Count 4.53 M/UL (4.20-5.40) Hemoglobin 11.5 G/DL (12.0-16.0) L Hematocrit 37.3 % (37.0-47.0) Mean Corpuscular Volume 82 FL (80-99) Mean Corpuscular Hemoglobin 25.5 PG (27.0-31.0) L Mean Corpuscular Hemoglobin Concent 30.9 G/DL (32.0-36.0) L Red Cell Distribution Width 12.3 % (11.6-14.8) Platelet Count 326 K/UL (150-450) Mean Platelet Volume 4.6 FL (6.5-10.1) L Neutrophils (%) (Auto) 70.8 % (45.0-75.0) Lymphocytes (%) (Auto) 20.2 % (20.0-45.0) Monocytes (%) (Auto) 4.9 % (1.0-10.0) Eosinophils (%) (Auto) 3.2 % (0.0-3.0) H Basophils (%) (Auto) 1.0 % (0.0-2.0) Sodium Level 139 MMOL/L (136-145) Potassium Level 3.8 MMOL/L (3.5-5.1) Chloride Level 102 MMOL/L (98-107) Carbon Dioxide Level 33 MMOL/L (21-32) H Anion Gap 4 mmol/L (5-15) L Blood Urea Nitrogen 18 mg/dL (7-18) Creatinine 0.9 MG/DL (0.55-1.30) Estimat Glomerular Filtration Rate mL/min (>60) Glucose Level 218 MG/DL (74-106) H Calcium Level 9.6 MG/DL (8.5-10.1) Total Bilirubin 0.2 MG/DL (0.2-1.0) Aspartate Amino Transf (AST/SGOT) 21 U/L (15-37) Alanine Aminotransferase (ALT/SGPT) 32 U/L (12-78) Alkaline Phosphatase 109 U/L (46-116) Pro-B-Type Natriuretic Peptide 116 pg/mL (0-125) Total Protein 8.7 G/DL (6.4-8.2) H Albumin 3.3 G/DL (3.4-5.0) L Globulin 5.4 g/dL Albumin/Globulin Ratio 0.6 (1.0-2.7) L Intake and Output 08/11/19 08/12/19 19:00 07:00 Intake Total 350 ml 740 ml Output Total 500 ml 450 ml Balance -150 ml 290 ml Intake Free Water 100 ml 200 ml Tube Feeding 250 ml 540 ml Output Urine Total 500 ml 450 ml Objective PHYSICAL EXAMINATION: GENERAL: The patient is awake, responsive, no acute distress. HEENT: NG tube in the nose. NECK: Supple. No JVD. LUNGS: Good air entry. No wheezing or rales. Decreased air in bases. HEART: S1, S2. Distant heart sounds. No murmurs or gallops. ABDOMEN: Soft, nondistended, nontender. Morbidly obese. EXTREMITIES: No cyanosis, clubbing, or edema. NEUROLOGIC: Limited secondary to the patient's status. The patient is moving upper extremities spontaneously. Lower extremities, limited range of motion. RECTAL: Refused and deferred. GENITOURINARY: Refused and deferred. PSYCHIATRIC: Mood and affect unable to obtain secondary to the patient's status. Assessment/Plan Assessment/Plan ASSESSMENT: 1. Sepsis=Staph Capitus, UTI=Strep Grp B. 2. Morbid obesity. 3. Dysphagia, status post NG tube feeding. 4. Advanced dementia. 5. Diabetes type 2. 6. Hypertension. 7. Prior history of CVA. 8. CHF. PLAN: 1. Admit the patient to telemetry. 2. antibiotic=Rocephin. We will 3. Codestatus at this time is Full Code. 4. Pulmonary consultation= Dr. Selin Carias 5. ID consultation = Dr. Sina Artis. 6. Discharge planning: [facility] Caesar Pizano MD Aug 12, 2019 19:15
--- NOTE | 2019-08-12 19:17 | NUR ---
HAND-OFF: Report given to Ms Navarro, patient resting comfortably, no sign of distress arnold arroyo.
[2019-08-12] MEDS: Docusate 100mg cap ORAL SCH (21:46)
[2019-08-13] MEDS: NovoLOG Insulin Flexpen SUBQ SCH ×4 (00:39→18:09)
[2019-08-13 00:51] VITALS: BP 153/95
--- NOTE | 2019-08-13 01:49 | NUR ---
NURSE NOTES: Patient in bed, arousable to touch, alert to name. On 3 liters nasal cannula, no s/s respiratory distress noted. NG tube in left nare, tolerating tube feeding, no residuals noted. Has bilateral soft wrist restraints for patient safety. Shaver in place, draining by gravity. Bed in lowest position, HOB elevated, call light within reach, bed alarm on. Will continue to monitor.
[2019-08-13 04:41] VITALS: BP 150/93
[2019-08-13 06:58] LABS: BASOPHILS % (AUTO) 0.7 % (0.0-2.0); EOSINOPHILS % (AUTO) 2.8 % (0.0-3.0); HEMATOCRIT 36.8 % (37.0-47.0); HEMOGLOBIN 11.5 G/DL (12.0-16.0); LYMPHOCYTES % (AUTO) 22.8 % (20.0-45.0); MEAN CORPUSCULAR VOLUME 82 FL (80-99); NEUTROPHILS % (AUTO) 66.7 % (45.0-75.0); PLATELET COUNT 316 K/UL (150-450); RED CELL DISTRIBUTION WIDTH 12.3 % (11.6-14.8); WHITE BLOOD COUNT 8.8 K/UL (4.8-10.8)
[2019-08-13 07:07] LABS: ANION GAP 7 mmol/L (5-15); BLOOD UREA NITROGEN 22 mg/dL (7-18); CALCIUM 9.5 MG/DL (8.5-10.1); CARBON DIOXIDE 32 MMOL/L (21-32); CHLORIDE 101 MMOL/L (98-107); POTASSIUM 4.4 MMOL/L (3.5-5.1); SODIUM 140 MMOL/L (136-145)
--- NOTE | 2019-08-13 07:15 | NUR ---
HAND-OFF: Report given to CHELA GARCIA RN.
[2019-08-13 08:00] VITALS: BP 137/79
--- NOTE | 2019-08-13 09:48 | Infectious Diseases Prog Note ---
Assessment/Plan Assessment/Plan 89 yo male with PMHx of Dementia, DM, HTN, CHD and CVA/TIA who presented from her correction with cough and SOB. UTI UA (+) Urine Cx - 10-20k GBS Afebrile No Leukocytosis Positive Blood Cx - Likely a contaminant Blood Cx 08/07/19 4/4 S. capitis; 08/09 Bcx NTD Cough/Dyspnea -08/12 CXR: Mild interstitial prominence, nonspecific, may also have a chronic component, unchanged from previous -08/07 CXR: Limited evaluation. Query mild pulmonary vascular congestion Dementia DM HTN CVA/TIA CHF PLAN - Continue to monitor off abx -08/12 SP Ceftriaxone #3 -08/06/19 S/P Cefepime - f/u Repeat Blood Cx - Repeat CBC - Monitor CBC and Temps Thank you for this consult. [facility] will continue to follow the patient with you during this hospitalization. Subjective Allergies: Coded Allergies: No Known Allergies (Unverified , 04/03/13) Subjective afebrile no leukocytosis Objective Vital Signs Last 24 Hour Vital Signs Date Time Temp Pulse Resp B/P (MAP) Pulse Ox O2 Delivery O2 Flow Rate FiO2 08/13/19 08:00 98.0 87 20 137/79 (98) 100 08/13/19 04:41 98.8 100 20 150/93 (112) 99 08/13/19 00:51 98.6 109 20 153/95 (114) 97 08/12/19 23:13 Nasal Cannula 3.0 08/12/19 20:29 96 Nasal Cannula 3.0 32 08/12/19 20:00 98.4 108 20 131/84 (100) 98 08/12/19 16:13 97.6 87 18 138/76 (96) 96 08/12/19 11:53 98.0 89 19 148/88 (108) 99 Height (Feet): 5 Height (Inches): 9.00 Weight (Pounds): 199 Objective General Appearance: WD/WN, no apparent distress Lines, tubes and drains: peripheral, central line HEENT: normocephalic, atraumatic Neck: non-tender, normal alignment Respiratory/Chest: lungs clear Cardiovascular/Chest: normal peripheral pulses Abdomen: normal bowel sounds, soft Extremities: normal range of motion Laboratory Tests Test 08/13/19 05:35 White Blood Count 8.8 K/UL (4.8-10.8) Red Blood Count 4.50 M/UL (4.20-5.40) Hemoglobin 11.5 G/DL (12.0-16.0) L Hematocrit 36.8 % (37.0-47.0) L Mean Corpuscular Volume 82 FL (80-99) Mean Corpuscular Hemoglobin 25.6 PG (27.0-31.0) L Mean Corpuscular Hemoglobin Concent 31.3 G/DL (32.0-36.0) L Red Cell Distribution Width 12.3 % (11.6-14.8) Platelet Count 316 K/UL (150-450) Mean Platelet Volume 4.8 FL (6.5-10.1) L Neutrophils (%) (Auto) 66.7 % (45.0-75.0) Lymphocytes (%) (Auto) 22.8 % (20.0-45.0) Monocytes (%) (Auto) 7.0 % (1.0-10.0) Eosinophils (%) (Auto) 2.8 % (0.0-3.0) Basophils (%) (Auto) 0.7 % (0.0-2.0) Sodium Level 140 MMOL/L (136-145) Potassium Level 4.4 MMOL/L (3.5-5.1) Chloride Level 101 MMOL/L (98-107) Carbon Dioxide Level 32 MMOL/L (21-32) Anion Gap 7 mmol/L (5-15) Blood Urea Nitrogen 22 mg/dL (7-18) H Creatinine 1.0 MG/DL (0.55-1.30) Estimat Glomerular Filtration Rate mL/min (>60) Glucose Level 231 MG/DL (74-106) H Calcium Level 9.5 MG/DL (8.5-10.1) Current Medications Medications (Trade) Dose Ordered Sig/Samaria Route PRN Reason Start Time Stop Time Status Last Admin Dose Admin Acetaminophen (Tylenol) 650 mg Q6H PRN ORAL For Pain 08/07/19 06:30 09/06/19 06:29 Amlodipine Besylate (Norvasc) 10 mg DAILY ORAL 08/07/19 09:00 09/06/19 08:59 08/12/19 08:17 Aspirin (Ecotrin) 81 mg DAILY ORAL 08/07/19 09:00 09/06/19 08:59 08/12/19 08:17 Bisacodyl (Dulcolax) 10 mg DAILYPRN PRN RECTAL Constipation 08/12/19 19:00 09/11/19 18:59 Ceftriaxone Sodium 1 gm/ Dextrose 55 ml @ 110 mls/hr Q24H IVPB 08/09/19 12:00 08/16/19 11:59 08/12/19 12:48 Clonidine HCl (Catapres Tab) 0.1 mg Q6H PRN ORAL PRN SBP>160 08/07/19 09:00 09/06/19 08:44 Dextrose (Dextrose 50%) 25 ml Q30M PRN IV Hypoglycemia 08/07/19 08:30 09/06/19 08:29 Dextrose (Dextrose 50%) 50 ml Q30M PRN IV Hypoglycemia 08/07/19 08:30 09/06/19 08:29 Docusate Sodium (Colace) 100 mg TWICE A DAY ORAL 08/12/19 19:00 09/11/19 18:59 08/12/19 21:46 Ferrous Sulfate (Feosol) 325 mg DAILY ORAL 08/07/19 09:00 09/06/19 08:59 08/12/19 08:17 Heparin Sodium (Porcine) (Heparin 5000 units/ml) 5,000 units EVERY 12 HOURS SUBQ 08/07/19 10:15 09/06/19 10:14 08/12/19 21:49 Hydralazine HCl (Apresoline) 20 mg DAILY ORAL 08/07/19 09:00 09/06/19 08:59 08/12/19 08:17 Insulin Aspart (NovoLOG) EVERY 6 HOURS SUBQ 08/10/19 18:00 08/23/19 17:59 08/13/19 05:27 Insulin Detemir (Levemir) 6 units Q24H SUBQ 08/07/19 09:00 09/06/19 08:59 08/12/19 09:37 Latoya Saini M.D. Aug 13, 2019 09:48
[2019-08-13] MEDS: Docusate 100mg cap ORAL SCH ×2 (10:42→18:07)
[2019-08-13] MEDS: Aspirin EC 81mg tab ORAL SCH (10:42)
[2019-08-13] MEDS: HydrALAZINE 10mg Tab ORAL SCH (10:43)
[2019-08-13] MEDS: Heparin 5000 units/ml inj SUBQ SCH ×2 (10:44→21:01)
[2019-08-13] MEDS: Levemir Flexpen SUBQ SCH (10:49)
[2019-08-13 12:00] VITALS: BP 173/103
--- NOTE | 2019-08-13 12:03 | NUR ---
CAFE ASSOCIATE CONSULT This SW received a consult referral for end of life and locate family on 08/12/2019. SW observed pt sleeping. Per chart review, pt is A&O 1x and non-verbal. Emergency contacts are listed: Emmanuelle Serna (ece) [phone], Stella Torres ([facility])[phone]. SW spoke w/ Emmanuelle Serna. Per Emmanuelle, pt is single, never and has no children. Pt receives SSA and pension, payee is [place] herself. [place] [address]. Per Emmanuelle, decision makers are her family members; Emmanuelle Serna, Stella Torres, Laura (ece) [phone] and Miracle ([facility]) [phone]. Emmanuelle requested SW to discuss end of life w/ Laura. SW spoke w/ Laura. Per Laura, the family does not want pt to have full code. COLIN will have a meeting evan Sanchez on 08/14/2019 at 1pm. Signed: 08/13/19 at 1209 by AMARI SHAW <Co-Signature Required>
--- NOTE | 2019-08-13 12:12 | NUR ---
INSTRUMENT TECHNICIAN HELPER PROGRESS NOTE ADD: Pt's baldomero Serna [phone] Carias in regards to pt's condition. COLIN left a note for . Signed: 08/13/19 at 1213 by AMARI SHAW <Co-Signature Required>
--- NOTE | 2019-08-13 14:04 | NUR ---
CASE MANAGEMENT:DISCHARGE PLANNING CLINICALS FAXED TO ELIER Burch; [phone] P: [phone] WILL FOLLOW UP
--- NOTE | 2019-08-13 14:22 | NUR ---
RD ASSESSMENT & RECOMMENDATIONS SEE CARE ACTIVITY FOR COMPLETE ASSESSMENT DAILY ESTIMATED NEEDS: Needs based on DM, CHF 65.8kg abw 25-30kcal/kg kcals/kg 1575-1890kcal total kcals 1-1.5g/kg g protein/kg 66-99 g total protein 20-25 mL/kg 4827-0875 total fluid mLs NUTRITION DIAGNOSIS: Swallowing difficulty R/T dysphagia, h/o CVA/TIA, dementia as evidenced by UNIX CONSULTANT recommends NPO, s/p NGT insertion, on NGT feeding. CURRENT TF:Glucerna 1.5 @ 45ml/hr x 24 hrs PO DIET RECOMMENDATIONS: WHEN SAFE FOR ORAL DIET -> CCHO MED, LOW NA (texture per UNIX CONSULTANT) ENTERAL NUTRITION RECOMMENDATIONS: Glucerna 1.5 @ 45ml/hr x 24 hrs to provide 1080ml, 1620kcal, 89g prot, 820ml free water * Maintain current TF: meets 100% est kcal/prot needs * HOB over 30 degrees * Without IVF, H20 flush of 150ml q 6 hrs ADDITIONAL RECOMMENDATIONS: * Calibrated bedscale wt per SNF, [id number] in Jul 2019 * Monitor for oral diet initiation- on NGT feds at this time * Consider increasing long acting insulin for improved BG control POC glu ([phone] ) * Monitor lytes daily w/ TF, replete as needed * Bowel regimen-> last BM 08/06 per EMR
--- NOTE | 2019-08-13 14:25 | Pulmonology Progress Note ---
Assessment/Plan Problems: (1) Bacteremia (2) UTI (urinary tract infection) (3) Advanced dementia (4) DM (diabetes mellitus) (5) HTN (hypertension) Assessment/Plan no new complains looks comfortable NG tube is in conn culture, BC positive for GPC, ? contaminated iv abx check electrolytes sliding scale swallow evaluation when more awake dvt prophylaxis I talked to one of the nieces, Emmanuelle, [phone] explained to her my recommendation about comfort care and comfort feeding. there will be meeting with another niece tomorrow with social staff worker Subjective ROS Limited/Unobtainable: Yes Constitutional: Reports: no symptoms HEENT: Repors: no symptoms Respiratory: Reports: no symptoms Allergies: Coded Allergies: No Known Allergies (Unverified , 04/03/13) Objective Last 24 Hour Vital Signs Date Time Temp Pulse Resp B/P (MAP) Pulse Ox O2 Delivery O2 Flow Rate FiO2 08/13/19 12:00 98.7 90 18 173/103 (126) 100 08/13/19 10:43 137/79 08/13/19 10:43 87 137/79 08/13/19 09:00 Nasal Cannula 3.0 08/13/19 08:00 98.0 87 20 137/79 (98) 100 08/13/19 04:41 98.8 100 20 150/93 (112) 99 08/13/19 00:51 98.6 109 20 153/95 (114) 97 08/12/19 23:13 Nasal Cannula 3.0 08/12/19 20:29 96 Nasal Cannula 3.0 32 08/12/19 20:00 98.4 108 20 131/84 (100) 98 08/12/19 16:13 97.6 87 18 138/76 (96) 96 Intake and Output 08/12/19 08/13/19 19:00 07:00 Intake Total 995 ml 795 ml Output Total 852 ml 450 ml Balance 143 ml 345 ml Intake Free Water 400 ml 300 ml IV Total 55 ml Tube Feeding 540 ml 495 ml Output Urine Total 852 ml 450 ml # Voids 1 Objective General Appearance: WD/WN, no apparent distress Lines, tubes and drains: peripheral, central line HEENT: normocephalic, atraumatic Neck: non-tender, normal alignment Respiratory/Chest: lungs clear Breasts: no masses Cardiovascular/Chest: normal peripheral pulses Abdomen: normal bowel sounds, soft Genitourinary/Rectal: normal genital exam Extremities: normal range of motion Laboratory Tests 08/13/19 05:35: White Blood Count 8.8, Red Blood Count 4.50, Hemoglobin 11.5L, Hematocrit 36.8L , Mean Corpuscular Volume 82, Mean Corpuscular Hemoglobin 25.6L, Mean Corpuscular Hemoglobin Concent 31.3L, Red Cell Distribution Width 12.3, Platelet Count 316, Mean Platelet Volume 4.8L, Neutrophils (%) (Auto) 66.7, Lymphocytes (%) (Auto) 22.8, Monocytes (%) (Auto) 7.0, Eosinophils (%) (Auto) 2.8, Basophils (%) (Auto) 0.7, Sodium Level 140, Potassium Level 4.4, Chloride Level 101, Carbon Dioxide Level 32, Anion Gap 7, Blood Urea Nitrogen 22H, Creatinine 1.0, Estimat Glomerular Filtration Rate , Glucose Level 231H, Calcium Level 9.5 Current Medications Medications (Trade) Dose Ordered Sig/Samaria Route PRN Reason Start Time Stop Time Status Last Admin Dose Admin Acetaminophen (Tylenol) 650 mg Q6H PRN ORAL For Pain 08/07/19 06:30 09/06/19 06:29 Amlodipine Besylate (Norvasc) 10 mg DAILY ORAL 08/07/19 09:00 09/06/19 08:59 08/13/19 10:43 Aspirin (Ecotrin) 81 mg DAILY ORAL 08/07/19 09:00 09/06/19 08:59 08/13/19 10:42 Bisacodyl (Dulcolax) 10 mg DAILYPRN PRN RECTAL Constipation 08/12/19 19:00 09/11/19 18:59 Clonidine HCl (Catapres Tab) 0.1 mg Q6H PRN ORAL PRN SBP>160 08/07/19 09:00 09/06/19 08:44 Dextrose (Dextrose 50%) 25 ml Q30M PRN IV Hypoglycemia 08/07/19 08:30 09/06/19 08:29 Dextrose (Dextrose 50%) 50 ml Q30M PRN IV Hypoglycemia 08/07/19 08:30 09/06/19 08:29 Docusate Sodium (Colace) 100 mg TWICE A DAY ORAL 08/12/19 19:00 09/11/19 18:59 08/13/19 10:42 Ferrous Sulfate (Feosol) 325 mg DAILY ORAL 08/07/19 09:00 09/06/19 08:59 08/13/19 10:42 Heparin Sodium (Porcine) (Heparin 5000 units/ml) 5,000 units EVERY 12 HOURS SUBQ 08/07/19 10:15 09/06/19 10:14 08/13/19 10:44 Hydralazine HCl (Apresoline) 20 mg DAILY ORAL 08/07/19 09:00 09/06/19 08:59 08/13/19 10:43 Insulin Aspart (NovoLOG) EVERY 6 HOURS SUBQ 08/10/19 18:00 08/23/19 17:59 08/13/19 12:52 Insulin Detemir (Levemir) 6 units Q24H SUBQ 08/07/19 09:00 09/06/19 08:59 08/13/19 10:49 Selin Carias MD Aug 13, 2019 14:25
[2019-08-13 16:00] VITALS: BP 129/60
--- NOTE | 2019-08-13 17:43 | Internal Med Progress Note ---
Subjective Date of Service: Aug 13, 2019 Physician Name Pizano,Caesar Attending Physician Selin Carias MD Current Medications Medications (Trade) Dose Ordered Sig/Samaria Route PRN Reason Start Time Stop Time Status Last Admin Dose Admin Acetaminophen (Tylenol) 650 mg Q6H PRN ORAL For Pain 08/07/19 06:30 09/06/19 06:29 Amlodipine Besylate (Norvasc) 10 mg DAILY ORAL 08/07/19 09:00 09/06/19 08:59 08/13/19 10:43 Aspirin (Ecotrin) 81 mg DAILY ORAL 08/07/19 09:00 09/06/19 08:59 08/13/19 10:42 Bisacodyl (Dulcolax) 10 mg DAILYPRN PRN RECTAL Constipation 08/12/19 19:00 09/11/19 18:59 Clonidine HCl (Catapres Tab) 0.1 mg Q6H PRN ORAL PRN SBP>160 08/07/19 09:00 09/06/19 08:44 Dextrose (Dextrose 50%) 25 ml Q30M PRN IV Hypoglycemia 08/07/19 08:30 09/06/19 08:29 Dextrose (Dextrose 50%) 50 ml Q30M PRN IV Hypoglycemia 08/07/19 08:30 09/06/19 08:29 Docusate Sodium (Colace) 100 mg TWICE A DAY ORAL 08/12/19 19:00 09/11/19 18:59 08/13/19 10:42 Ferrous Sulfate (Feosol) 325 mg DAILY ORAL 08/07/19 09:00 09/06/19 08:59 08/13/19 10:42 Heparin Sodium (Porcine) (Heparin 5000 units/ml) 5,000 units EVERY 12 HOURS SUBQ 08/07/19 10:15 09/06/19 10:14 08/13/19 10:44 Hydralazine HCl (Apresoline) 20 mg DAILY ORAL 08/07/19 09:00 09/06/19 08:59 08/13/19 10:43 Insulin Aspart (NovoLOG) EVERY 6 HOURS SUBQ 08/10/19 18:00 08/23/19 17:59 08/13/19 12:52 Insulin Detemir (Levemir) 6 units Q24H SUBQ 08/07/19 09:00 09/06/19 08:59 08/13/19 10:49 Allergies: Coded Allergies: No Known Allergies (Unverified , 04/03/13) ROS Limited/Unobtainable: Yes Subjective 89 YO F admitted with cough. Now UTI and sepsis. Cover for Int Boris-DR De Pza Objective Last Vital Signs Date Time Temp Pulse Resp B/P (MAP) Pulse Ox O2 Delivery O2 Flow Rate FiO2 08/13/19 16:00 98.8 91 18 129/60 (83) 100 08/13/19 09:00 Nasal Cannula 3.0 08/12/19 20:29 32 Laboratory Tests Test 08/13/19 05:35 White Blood Count 8.8 K/UL (4.8-10.8) Red Blood Count 4.50 M/UL (4.20-5.40) Hemoglobin 11.5 G/DL (12.0-16.0) L Hematocrit 36.8 % (37.0-47.0) L Mean Corpuscular Volume 82 FL (80-99) Mean Corpuscular Hemoglobin 25.6 PG (27.0-31.0) L Mean Corpuscular Hemoglobin Concent 31.3 G/DL (32.0-36.0) L Red Cell Distribution Width 12.3 % (11.6-14.8) Platelet Count 316 K/UL (150-450) Mean Platelet Volume 4.8 FL (6.5-10.1) L Neutrophils (%) (Auto) 66.7 % (45.0-75.0) Lymphocytes (%) (Auto) 22.8 % (20.0-45.0) Monocytes (%) (Auto) 7.0 % (1.0-10.0) Eosinophils (%) (Auto) 2.8 % (0.0-3.0) Basophils (%) (Auto) 0.7 % (0.0-2.0) Sodium Level 140 MMOL/L (136-145) Potassium Level 4.4 MMOL/L (3.5-5.1) Chloride Level 101 MMOL/L (98-107) Carbon Dioxide Level 32 MMOL/L (21-32) Anion Gap 7 mmol/L (5-15) Blood Urea Nitrogen 22 mg/dL (7-18) H Creatinine 1.0 MG/DL (0.55-1.30) Estimat Glomerular Filtration Rate mL/min (>60) Glucose Level 231 MG/DL (74-106) H Calcium Level 9.5 MG/DL (8.5-10.1) Intake and Output 08/12/19 08/13/19 19:00 07:00 Intake Total 995 ml 795 ml Output Total 852 ml 450 ml Balance 143 ml 345 ml Intake Free Water 400 ml 300 ml IV Total 55 ml Tube Feeding 540 ml 495 ml Output Urine Total 852 ml 450 ml # Voids 1 Objective PHYSICAL EXAMINATION: GENERAL: The patient is awake, responsive, no acute distress. HEENT: NG tube in the nose. NECK: Supple. No JVD. LUNGS: Good air entry. No wheezing or rales. Decreased air in bases. HEART: S1, S2. Distant heart sounds. No murmurs or gallops. ABDOMEN: Soft, nondistended, nontender. Morbidly obese. EXTREMITIES: No cyanosis, clubbing, or edema. NEUROLOGIC: Limited secondary to the patient's status. The patient is moving upper extremities spontaneously. Lower extremities, limited range of motion. RECTAL: Refused and deferred. GENITOURINARY: Refused and deferred. PSYCHIATRIC: Mood and affect unable to obtain secondary to the patient's status. Assessment/Plan Assessment/Plan ASSESSMENT: 1. Sepsis=Staph Capitus, UTI=Strep Grp B. 2. Morbid obesity. 3. Dysphagia, status post NG tube feeding. 4. Advanced dementia. 5. Diabetes type 2. 6. Hypertension. 7. Prior history of CVA. 8. CHF. PLAN: 1. Admit the patient to telemetry. 2. antibiotic=Rocephin. We will 3. Codestatus at this time is Full Code. 4. Pulmonary consultation= Dr. Selin Carias 5. ID consultation = Dr. Sina Artis. 6. Discharge planning: [facility] Caesar Pizano MD Aug 13, 2019 17:43
--- NOTE | 2019-08-13 19:20 | NUR ---
NURSE NOTES: Received patient in bed. Patient is awake, non-verbal. Bed at the lowest position, 1/2 side rails up. NGT in place and secured. Glucerna 1.5 running at 45 mL/hr. F/c draining yellow urine, anchor in place. Bilat soft-wrists restraints secured, hands are warm and normal color for ethnicity. Patient is on 3 L via NC. No signs of pain noted at this time.
[2019-08-13 20:00] VITALS: BP 149/81
[2019-08-14] VITALS: BP 138/80
[2019-08-14] MEDS: NovoLOG Insulin Flexpen SUBQ SCH ×4 (00:04→18:17)
[2019-08-14 04:00] VITALS: BP 161/69
--- NOTE | 2019-08-14 07:11 | NUR ---
NURSE NOTES: Report received from Blane GRAVES. Patient is awake sitting in high fowlers position in bed. Patient is non verbal. NG tube noted with glucerna 1.5 running at 45 cc/hr. This is the goal rate. Patient noted to have 24 eileen IV in left hand. Patent and flushes. Patient noted to have beach patent and draining clear yellow urine. Patient on 3 liters of oxygen via NC. Does not appear to be in respiratory distress at this time. Bed locked, alarmed, and in lowest position. Will continue to follow plan of care.
--- NOTE | 2019-08-14 07:11 | NUR ---
HAND-OFF: Report given to Patel GRAVES.
[2019-08-14 07:39] LABS: BASOPHILS % (AUTO) 0.5 % (0.0-2.0); EOSINOPHILS % (AUTO) 2.6 % (0.0-3.0); HEMATOCRIT 35.3 % (37.0-47.0); HEMOGLOBIN 11.2 G/DL (12.0-16.0); LYMPHOCYTES % (AUTO) 21.7 % (20.0-45.0); MEAN CORPUSCULAR VOLUME 82 FL (80-99); MONOCYTES % (AUTO) 10.5 % (1.0-10.0); NEUTROPHILS % (AUTO) 64.6 % (45.0-75.0); PLATELET COUNT 341 K/UL (150-450); RED BLOOD COUNT 4.29 M/UL (4.20-5.40); RED CELL DISTRIBUTION WIDTH 14.4 % (11.6-14.8); WHITE BLOOD COUNT 9.4 K/UL (4.8-10.8)
[2019-08-14 07:56] LABS: ANION GAP 7 mmol/L (5-15); BLOOD UREA NITROGEN 25 mg/dL (7-18); CALCIUM 9.7 MG/DL (8.5-10.1); CARBON DIOXIDE 32 MMOL/L (21-32); CHLORIDE 102 MMOL/L (98-107); POTASSIUM 4.3 MMOL/L (3.5-5.1); SODIUM 141 MMOL/L (136-145)
[2019-08-14 08:00] VITALS: BP 143/74
[2019-08-14] MEDS: Docusate 100mg cap ORAL SCH (10:09)
[2019-08-14] MEDS: Aspirin EC 81mg tab ORAL SCH (10:09)
[2019-08-14] MEDS: HydrALAZINE 10mg Tab ORAL SCH (10:10)
[2019-08-14] MEDS: Heparin 5000 units/ml inj SUBQ SCH ×2 (10:12→20:38)
[2019-08-14] MEDS: Levemir Flexpen SUBQ SCH (10:13)
[2019-08-14] MEDS: Docusate 100mg/10ml Liq NG SCH ×2 (11:13→18:00)
[2019-08-14 12:00] VITALS: BP 143/87
--- NOTE | 2019-08-14 12:49 | Internal Med Progress Note ---
Subjective Date of Service: Aug 14, 2019 Physician Name Pizano,Caesar Attending Physician Selin Carias MD Current Medications Medications (Trade) Dose Ordered Sig/Samaria Route PRN Reason Start Time Stop Time Status Last Admin Dose Admin Acetaminophen (Tylenol) 650 mg Q6H PRN ORAL For Pain 08/07/19 06:30 09/06/19 06:29 Amlodipine Besylate (Norvasc) 10 mg DAILY ORAL 08/07/19 09:00 09/06/19 08:59 08/14/19 10:11 Aspirin (Ecotrin) 81 mg DAILY ORAL 08/07/19 09:00 09/06/19 08:59 08/14/19 10:09 Bisacodyl (Dulcolax) 10 mg DAILYPRN PRN RECTAL Constipation 08/12/19 19:00 09/11/19 18:59 08/14/19 05:01 Clonidine HCl (Catapres Tab) 0.1 mg Q6H PRN ORAL PRN SBP>160 08/07/19 09:00 09/06/19 08:44 Dextrose (Dextrose 50%) 25 ml Q30M PRN IV Hypoglycemia 08/07/19 08:30 09/06/19 08:29 Dextrose (Dextrose 50%) 50 ml Q30M PRN IV Hypoglycemia 08/07/19 08:30 09/06/19 08:29 Docusate Sodium (Colace) 100 mg TWICE A DAY NG 08/14/19 11:00 09/13/19 10:59 08/14/19 11:13 Ferrous Sulfate (Feosol) 325 mg DAILY ORAL 08/07/19 09:00 09/06/19 08:59 08/14/19 10:11 Heparin Sodium (Porcine) (Heparin 5000 units/ml) 5,000 units EVERY 12 HOURS SUBQ 08/07/19 10:15 09/06/19 10:14 08/14/19 10:12 Hydralazine HCl (Apresoline) 20 mg DAILY ORAL 08/07/19 09:00 09/06/19 08:59 08/14/19 10:10 Insulin Aspart (NovoLOG) EVERY 6 HOURS SUBQ 08/10/19 18:00 08/23/19 17:59 08/14/19 12:35 Insulin Detemir (Levemir) 6 units Q24H SUBQ 08/07/19 09:00 09/06/19 08:59 08/14/19 10:13 Allergies: Coded Allergies: No Known Allergies (Unverified , 04/03/13) ROS Limited/Unobtainable: Yes Subjective 89 YO F admitted with cough. Now UTI and sepsis. Cover for Int Boris-DR De Paz Objective Last Vital Signs Date Time Temp Pulse Resp B/P (MAP) Pulse Ox O2 Delivery O2 Flow Rate FiO2 08/14/19 10:11 104 143/74 08/14/19 04:00 98.3 20 100 08/13/19 21:00 Nasal Cannula 3.0 08/13/19 19:30 32 Laboratory Tests Test 08/14/19 06:45 White Blood Count 9.4 K/UL (4.8-10.8) Red Blood Count 4.29 M/UL (4.20-5.40) Hemoglobin 11.2 G/DL (12.0-16.0) L Hematocrit 35.3 % (37.0-47.0) L Mean Corpuscular Volume 82 FL (80-99) Mean Corpuscular Hemoglobin 26.1 PG (27.0-31.0) L Mean Corpuscular Hemoglobin Concent 31.8 G/DL (32.0-36.0) L Red Cell Distribution Width 14.4 % (11.6-14.8) Platelet Count 341 K/UL (150-450) Mean Platelet Volume 5.1 FL (6.5-10.1) L Neutrophils (%) (Auto) 64.6 % (45.0-75.0) Lymphocytes (%) (Auto) 21.7 % (20.0-45.0) Monocytes (%) (Auto) 10.5 % (1.0-10.0) H Eosinophils (%) (Auto) 2.6 % (0.0-3.0) Basophils (%) (Auto) 0.5 % (0.0-2.0) Sodium Level 141 MMOL/L (136-145) Potassium Level 4.3 MMOL/L (3.5-5.1) Chloride Level 102 MMOL/L (98-107) Carbon Dioxide Level 32 MMOL/L (21-32) Anion Gap 7 mmol/L (5-15) Blood Urea Nitrogen 25 mg/dL (7-18) H Creatinine 1.0 MG/DL (0.55-1.30) Estimat Glomerular Filtration Rate mL/min (>60) Glucose Level 207 MG/DL (74-106) H Calcium Level 9.7 MG/DL (8.5-10.1) Intake and Output 08/13/19 08/14/19 19:00 07:00 Intake Total 45 ml 795 ml Output Total 250 ml 650 ml Balance -205 ml 145 ml Intake Free Water 300 ml Tube Feeding 45 ml 495 ml Output Urine Total 250 ml 650 ml Objective PHYSICAL EXAMINATION: GENERAL: The patient is awake, responsive, no acute distress. HEENT: NG tube in the nose. NECK: Supple. No JVD. LUNGS: Good air entry. No wheezing or rales. Decreased air in bases. HEART: S1, S2. Distant heart sounds. No murmurs or gallops. ABDOMEN: Soft, nondistended, nontender. Morbidly obese. EXTREMITIES: No cyanosis, clubbing, or edema. NEUROLOGIC: Limited secondary to the patient's status. The patient is moving upper extremities spontaneously. Lower extremities, limited range of motion. RECTAL: Refused and deferred. GENITOURINARY: Refused and deferred. PSYCHIATRIC: Mood and affect unable to obtain secondary to the patient's status. Assessment/Plan Assessment/Plan ASSESSMENT: 1. Sepsis=Staph Capitus, UTI=Strep Grp B. 2. Morbid obesity. 3. Dysphagia, status post NG tube feeding. 4. Advanced dementia. 5. Diabetes type 2. 6. Hypertension. 7. Prior history of CVA. 8. CHF. PLAN: 1. Admit the patient to telemetry. 2. antibiotic=Rocephin. We will 3. Codestatus at this time is Full Code. 4. Pulmonary consultation= Dr. Selin Carias 5. ID consultation = Dr. Sina Artis. 6. Discharge planning: [facility] Caesar Pizano MD Aug 14, 2019 12:49
--- NOTE | 2019-08-14 13:02 | Pulmonology Progress Note ---
Assessment/Plan Problems: (1) Bacteremia (2) UTI (urinary tract infection) (3) Advanced dementia (4) DM (diabetes mellitus) (5) HTN (hypertension) Assessment/Plan no new complains looks comfortable NG tube is in conn culture, BC positive for GPC, ? contaminated iv abx check electrolytes sliding scale swallow evaluation when more awake dvt prophylaxis I talked to one of the nieces, Emmanuelle, [phone] explained to her my recommendation about comfort care and comfort feeding. there will be meeting with another niece tomorrow with social science instructor family meeting is today Subjective ROS Limited/Unobtainable: Yes HEENT: Repors: no symptoms Allergies: Coded Allergies: No Known Allergies (Unverified , 04/03/13) Objective Last 24 Hour Vital Signs Date Time Temp Pulse Resp B/P (MAP) Pulse Ox O2 Delivery O2 Flow Rate FiO2 08/14/19 10:11 104 143/74 08/14/19 10:10 143/74 08/14/19 04:00 98.3 88 20 161/69 (99) 100 08/14/19 00:00 97.4 99 17 138/80 (99) 100 08/13/19 21:00 Nasal Cannula 3.0 08/13/19 20:00 97.9 100 18 149/81 (103) 100 08/13/19 19:30 98 Nasal Cannula 3.0 32 08/13/19 16:00 98.8 91 18 129/60 (83) 100 Intake and Output 08/13/19 08/14/19 18:59 06:59 Intake Total 840 ml Output Total 250 ml 650 ml Balance -250 ml 190 ml Intake Free Water 300 ml Tube Feeding 540 ml Output Urine Total 250 ml 650 ml Objective General Appearance: WD/WN, no apparent distress Lines, tubes and drains: peripheral, central line HEENT: normocephalic, atraumatic Neck: non-tender, normal alignment Respiratory/Chest: lungs clear Breasts: no masses Cardiovascular/Chest: normal peripheral pulses Abdomen: normal bowel sounds, soft Genitourinary/Rectal: normal genital exam Extremities: normal range of motion Laboratory Tests 08/14/19 06:45: White Blood Count 9.4, Red Blood Count 4.29, Hemoglobin 11.2L, Hematocrit 35.3L , Mean Corpuscular Volume 82, Mean Corpuscular Hemoglobin 26.1L, Mean Corpuscular Hemoglobin Concent 31.8L, Red Cell Distribution Width 14.4, Platelet Count 341, Mean Platelet Volume 5.1L, Neutrophils (%) (Auto) 64.6, Lymphocytes (%) (Auto) 21.7, Monocytes (%) (Auto) 10.5H, Eosinophils (%) (Auto) 2.6, Basophils (%) (Auto) 0.5, Sodium Level 141, Potassium Level 4.3, Chloride Level 102, Carbon Dioxide Level 32, Anion Gap 7, Blood Urea Nitrogen 25H, Creatinine 1.0, Estimat Glomerular Filtration Rate , Glucose Level 207H, Calcium Level 9.7 Current Medications Medications (Trade) Dose Ordered Sig/Samaria Route PRN Reason Start Time Stop Time Status Last Admin Dose Admin Acetaminophen (Tylenol) 650 mg Q6H PRN ORAL For Pain 08/07/19 06:30 09/06/19 06:29 Amlodipine Besylate (Norvasc) 10 mg DAILY ORAL 08/07/19 09:00 09/06/19 08:59 08/14/19 10:11 Aspirin (Ecotrin) 81 mg DAILY ORAL 08/07/19 09:00 09/06/19 08:59 08/14/19 10:09 Bisacodyl (Dulcolax) 10 mg DAILYPRN PRN RECTAL Constipation 08/12/19 19:00 09/11/19 18:59 08/14/19 05:01 Clonidine HCl (Catapres Tab) 0.1 mg Q6H PRN ORAL PRN SBP>160 08/07/19 09:00 09/06/19 08:44 Dextrose (Dextrose 50%) 25 ml Q30M PRN IV Hypoglycemia 08/07/19 08:30 09/06/19 08:29 Dextrose (Dextrose 50%) 50 ml Q30M PRN IV Hypoglycemia 08/07/19 08:30 09/06/19 08:29 Docusate Sodium (Colace) 100 mg TWICE A DAY NG 08/14/19 11:00 09/13/19 10:59 08/14/19 11:13 Ferrous Sulfate (Feosol) 325 mg DAILY ORAL 08/07/19 09:00 09/06/19 08:59 08/14/19 10:11 Heparin Sodium (Porcine) (Heparin 5000 units/ml) 5,000 units EVERY 12 HOURS SUBQ 08/07/19 10:15 09/06/19 10:14 08/14/19 10:12 Hydralazine HCl (Apresoline) 20 mg DAILY ORAL 08/07/19 09:00 09/06/19 08:59 08/14/19 10:10 Insulin Aspart (NovoLOG) EVERY 6 HOURS SUBQ 08/10/19 18:00 08/23/19 17:59 08/14/19 12:35 Insulin Detemir (Levemir) 6 units Q24H SUBQ 08/07/19 09:00 09/06/19 08:59 08/14/19 10:13 Selin Carias MD Aug 14, 2019 13:02
--- NOTE | 2019-08-14 13:36 | NUR ---
CELLULAR TOWER CLIMBER PROGRESS NOTE COLIN and Dr. Carias met w/ pt's niece Lauraaraceli Rasmussen [phone] on 08/14/2019. Dr. Carias discussed pts' condition, end of life and discussed POLST. POLST completed w/ DNR, comfort-focused tx and no artificial means of nutrition. Signed by Dr. Carias and Laura Rasmussen. Laura received the copy and the original POLST was given to the charge nurse Sina. Laura requested SW for arranging end of life spiritual support. COLIN contacted [facility] [phone] (has one autism motor specialist but not available at this time), [facility] [phone] (one autism motor specialist but not available at this time), [facility] [phone] (no answer, ). COLIN informed and provided such information to Laura Rasmussen. Signed: 08/14/19 at 1412 by AMARI SHAW <Co-Signature Required>
--- NOTE | 2019-08-14 15:55 | Infectious Diseases Prog Note ---
Assessment/Plan Assessment/Plan 89 yo male with PMHx of Dementia, DM, HTN, CHD and CVA/TIA who presented from her shelter with cough and SOB. UTI UA (+) Urine Cx - 10-20k GBS Afebrile No Leukocytosis Positive Blood Cx - Likely a contaminant Blood Cx 08/07/19 4/4 S. capitis; 08/09 Bcx NTD Cough/Dyspnea -08/12 CXR: Mild interstitial prominence, nonspecific, may also have a chronic component, unchanged from previous -08/07 CXR: Limited evaluation. Query mild pulmonary vascular congestion Dementia DM HTN CVA/TIA CHF PLAN - Continue to monitor off abx -08/12 SP Ceftriaxone #3 -08/06/19 S/P Cefepime - f/u Repeat Blood Cx - Repeat CBC - Monitor CBC and Temps Thank you for this consult. [facility] will continue to follow the patient with you during this hospitalization. Subjective Allergies: Coded Allergies: No Known Allergies (Unverified , 04/03/13) Subjective afebrile no leukocytosis Objective Vital Signs Last 24 Hour Vital Signs Date Time Temp Pulse Resp B/P (MAP) Pulse Ox O2 Delivery O2 Flow Rate FiO2 08/14/19 12:00 99.1 110 19 143/87 (105) 100 08/14/19 10:11 104 143/74 08/14/19 10:10 143/74 08/14/19 09:00 Nasal Cannula 3.0 08/14/19 08:00 98.1 100 17 143/74 (97) 100 08/14/19 04:00 98.3 88 20 161/69 (99) 100 08/14/19 00:00 97.4 99 17 138/80 (99) 100 08/13/19 21:00 Nasal Cannula 3.0 08/13/19 20:00 97.9 100 18 149/81 (103) 100 08/13/19 19:30 98 Nasal Cannula 3.0 32 08/13/19 16:00 98.8 91 18 129/60 (83) 100 Height (Feet): 5 Height (Inches): 9.00 Weight (Pounds): 201 Objective General Appearance: WD/WN, no apparent distress Lines, tubes and drains: peripheral, central line HEENT: normocephalic, atraumatic Neck: non-tender, normal alignment Respiratory/Chest: lungs clear Cardiovascular/Chest: normal peripheral pulses Abdomen: normal bowel sounds, soft Extremities: normal range of motion Laboratory Tests Test 08/14/19 06:45 White Blood Count 9.4 K/UL (4.8-10.8) Red Blood Count 4.29 M/UL (4.20-5.40) Hemoglobin 11.2 G/DL (12.0-16.0) L Hematocrit 35.3 % (37.0-47.0) L Mean Corpuscular Volume 82 FL (80-99) Mean Corpuscular Hemoglobin 26.1 PG (27.0-31.0) L Mean Corpuscular Hemoglobin Concent 31.8 G/DL (32.0-36.0) L Red Cell Distribution Width 14.4 % (11.6-14.8) Platelet Count 341 K/UL (150-450) Mean Platelet Volume 5.1 FL (6.5-10.1) L Neutrophils (%) (Auto) 64.6 % (45.0-75.0) Lymphocytes (%) (Auto) 21.7 % (20.0-45.0) Monocytes (%) (Auto) 10.5 % (1.0-10.0) H Eosinophils (%) (Auto) 2.6 % (0.0-3.0) Basophils (%) (Auto) 0.5 % (0.0-2.0) Sodium Level 141 MMOL/L (136-145) Potassium Level 4.3 MMOL/L (3.5-5.1) Chloride Level 102 MMOL/L (98-107) Carbon Dioxide Level 32 MMOL/L (21-32) Anion Gap 7 mmol/L (5-15) Blood Urea Nitrogen 25 mg/dL (7-18) H Creatinine 1.0 MG/DL (0.55-1.30) Estimat Glomerular Filtration Rate mL/min (>60) Glucose Level 207 MG/DL (74-106) H Calcium Level 9.7 MG/DL (8.5-10.1) Current Medications Medications (Trade) Dose Ordered Sig/Samaria Route PRN Reason Start Time Stop Time Status Last Admin Dose Admin Acetaminophen (Tylenol) 650 mg Q6H PRN ORAL For Pain 08/07/19 06:30 09/06/19 06:29 Amlodipine Besylate (Norvasc) 10 mg DAILY ORAL 08/07/19 09:00 09/06/19 08:59 08/14/19 10:11 Aspirin (Ecotrin) 81 mg DAILY ORAL 08/07/19 09:00 09/06/19 08:59 08/14/19 10:09 Bisacodyl (Dulcolax) 10 mg DAILYPRN PRN RECTAL Constipation 08/12/19 19:00 09/11/19 18:59 08/14/19 05:01 Clonidine HCl (Catapres Tab) 0.1 mg Q6H PRN ORAL PRN SBP>160 08/07/19 09:00 09/06/19 08:44 Dextrose (Dextrose 50%) 25 ml Q30M PRN IV Hypoglycemia 08/07/19 08:30 09/06/19 08:29 Dextrose (Dextrose 50%) 50 ml Q30M PRN IV Hypoglycemia 08/07/19 08:30 09/06/19 08:29 Docusate Sodium (Colace) 100 mg TWICE A DAY NG 08/14/19 11:00 09/13/19 10:59 08/14/19 11:13 Ferrous Sulfate (Feosol) 325 mg DAILY ORAL 08/07/19 09:00 09/06/19 08:59 08/14/19 10:11 Heparin Sodium (Porcine) (Heparin 5000 units/ml) 5,000 units EVERY 12 HOURS SUBQ 08/07/19 10:15 09/06/19 10:14 08/14/19 10:12 Hydralazine HCl (Apresoline) 20 mg DAILY ORAL 08/07/19 09:00 09/06/19 08:59 08/14/19 10:10 Insulin Aspart (NovoLOG) EVERY 6 HOURS SUBQ 08/10/19 18:00 08/23/19 17:59 08/14/19 12:35 Insulin Detemir (Levemir) 6 units Q24H SUBQ 08/07/19 09:00 09/06/19 08:59 08/14/19 10:13 Latoya Saini M.D. Aug 14, 2019 15:55
[2019-08-14 16:00] VITALS: BP 150/70
--- NOTE | 2019-08-14 19:35 | NUR ---
HAND-OFF: Report given to Maria G GRAVES.
--- NOTE | 2019-08-14 19:36 | NUR ---
NURSE NOTES: Received patient in bed. Patient is non-verbal. No signs of pain noted at this time. NGT in place. Glucerna 1.5 running at 45 mL/hr. Soft wrist restraints in place bilaterally, hands are warm and normal color for ethnicity. F/C in place draining clear yellow urine. IV in the left hand noted with no redness or swelling.
[2019-08-14 20:00] VITALS: BP 158/85
[2019-08-14] MEDS: Acetaminophen 650mg/20.3ml ORAL PRN (22:37)
[2019-08-15] VITALS: BP 142/81
[2019-08-15] MEDS: NovoLOG Insulin Flexpen SUBQ SCH ×5 (00:10→23:57)
[2019-08-15 04:00] VITALS: BP 144/72
[2019-08-15 06:55] LABS: BASOPHILS % (AUTO) 0.4 % (0.0-2.0); EOSINOPHILS % (AUTO) 1.8 % (0.0-3.0); HEMATOCRIT 37.2 % (37.0-47.0); HEMOGLOBIN 11.7 G/DL (12.0-16.0); MEAN CORPUSCULAR VOLUME 83 FL (80-99); NEUTROPHILS % (AUTO) 69.8 % (45.0-75.0); PLATELET COUNT 341 K/UL (150-450); RED BLOOD COUNT 4.49 M/UL (4.20-5.40); RED CELL DISTRIBUTION WIDTH 14.3 % (11.6-14.8); WHITE BLOOD COUNT 11.8 K/UL (4.8-10.8)
--- NOTE | 2019-08-15 07:21 | NUR ---
HAND-OFF: Report given to Patel GRAVES.
--- NOTE | 2019-08-15 07:22 | NUR ---
NURSE NOTES: Report received from Blane GRAVES. Patient awake and sitting in high fowlers position in bed. Patient is non verbal. Does not show signs of pain. Patient has NG tube with glucerna 1.5 running at 45 cc/hr. NG tube patent and secure. Patient noted to have bilateral soft wrist restraints, no signs of edema, patient can move fingers, and has good circulation. No need for order renewal at this time. Will continue to follow plan of care.
[2019-08-15 07:24] LABS: ANION GAP 5 mmol/L (5-15); BLOOD UREA NITROGEN 33 mg/dL (7-18); CALCIUM 9.8 MG/DL (8.5-10.1); CARBON DIOXIDE 34 MMOL/L (21-32); CHLORIDE 102 MMOL/L (98-107); CREATININE 1.1 MG/DL (0.55-1.30); POTASSIUM 4.2 MMOL/L (3.5-5.1); SODIUM 141 MMOL/L (136-145)
[2019-08-15 08:00] VITALS: BP 135/84
[2019-08-15] MEDS: Levemir Flexpen SUBQ SCH (10:10)
[2019-08-15] MEDS: Aspirin EC 81mg tab ORAL SCH (10:10)
[2019-08-15] MEDS: HydrALAZINE 10mg Tab ORAL SCH (10:10)
[2019-08-15] MEDS: Docusate 100mg/10ml Liq NG SCH ×2 (10:11→18:42)
[2019-08-15] MEDS: Heparin 5000 units/ml inj SUBQ SCH ×2 (10:12→20:27)
[2019-08-15 12:00] VITALS: BP 138/86
--- NOTE | 2019-08-15 12:01 | Infectious Diseases Prog Note ---
Assessment/Plan Assessment/Plan 89 yo male with PMHx of Dementia, DM, HTN, CHD and CVA/TIA who presented from her halfway with cough and SOB. UTI, sp rx UA (+) Urine Cx - 10-20k GBS Afebrile Mild Leukocytosis Positive Blood Cx - Likely a contaminant Blood Cx 08/07/19 4/4 S. capitis; 08/09 Bcx Neg Cough/Dyspnea -08/12 CXR: Mild interstitial prominence, nonspecific, may also have a chronic component, unchanged from previous -08/07 CXR: Limited evaluation. Query mild pulmonary vascular congestion Dementia DM HTN CVA/TIA CHF PLAN - Continue to monitor off abx -08/12 SP Ceftriaxone #3 -08/06/19 S/P Cefepime - Monitor CBC and Temps Thank you for this consult. [facility] will continue to follow the patient with you during this hospitalization. Subjective Allergies: Coded Allergies: No Known Allergies (Unverified , 04/03/13) Subjective afebrile mild leukocytosis repeat Bcx neg Objective Vital Signs Last 24 Hour Vital Signs Date Time Temp Pulse Resp B/P (MAP) Pulse Ox O2 Delivery O2 Flow Rate FiO2 08/15/19 10:11 104 135/84 08/15/19 10:10 135/84 08/15/19 09:00 Nasal Cannula 3.0 08/15/19 08:00 97.8 102 18 135/84 (101) 100 08/15/19 04:00 99.1 72 18 144/72 (96) 100 08/15/19 00:00 99.0 104 20 142/81 (101) 100 08/14/19 21:00 Nasal Cannula 3.0 08/14/19 20:00 99.7 118 20 158/85 (109) 97 08/14/19 16:00 99.0 100 19 150/70 (96) 100 08/14/19 12:00 99.1 110 19 143/87 (105) 100 Height (Feet): 5 Height (Inches): 9.00 Weight (Pounds): 201 Objective General Appearance: WD/WN, no apparent distress Lines, tubes and drains: peripheral, central line HEENT: normocephalic, atraumatic Neck: non-tender, normal alignment Respiratory/Chest: lungs clear Cardiovascular/Chest: normal peripheral pulses Abdomen: normal bowel sounds, soft Extremities: normal range of motion Laboratory Tests Test 08/14/19 21:00 08/15/19 06:14 Stool Occult Blood Pending White Blood Count 11.8 K/UL (4.8-10.8) H Red Blood Count 4.49 M/UL (4.20-5.40) Hemoglobin 11.7 G/DL (12.0-16.0) L Hematocrit 37.2 % (37.0-47.0) Mean Corpuscular Volume 83 FL (80-99) Mean Corpuscular Hemoglobin 26.1 PG (27.0-31.0) L Mean Corpuscular Hemoglobin Concent 31.6 G/DL (32.0-36.0) L Red Cell Distribution Width 14.3 % (11.6-14.8) Platelet Count 341 K/UL (150-450) Mean Platelet Volume 5.1 FL (6.5-10.1) L Neutrophils (%) (Auto) 69.8 % (45.0-75.0) Lymphocytes (%) (Auto) 20.0 % (20.0-45.0) Monocytes (%) (Auto) 8.0 % (1.0-10.0) Eosinophils (%) (Auto) 1.8 % (0.0-3.0) Basophils (%) (Auto) 0.4 % (0.0-2.0) Sodium Level 141 MMOL/L (136-145) Potassium Level 4.2 MMOL/L (3.5-5.1) Chloride Level 102 MMOL/L (98-107) Carbon Dioxide Level 34 MMOL/L (21-32) H Anion Gap 5 mmol/L (5-15) Blood Urea Nitrogen 33 mg/dL (7-18) H Creatinine 1.1 MG/DL (0.55-1.30) Estimat Glomerular Filtration Rate mL/min (>60) Glucose Level 271 MG/DL (74-106) H Calcium Level 9.8 MG/DL (8.5-10.1) Current Medications Medications (Trade) Dose Ordered Sig/Samaria Route PRN Reason Start Time Stop Time Status Last Admin Dose Admin Acetaminophen (Tylenol) 650 mg Q6H PRN ORAL For Pain 08/07/19 06:30 09/06/19 06:29 08/14/19 22:37 Amlodipine Besylate (Norvasc) 10 mg DAILY ORAL 08/07/19 09:00 09/06/19 08:59 08/15/19 10:11 Aspirin (Ecotrin) 81 mg DAILY ORAL 08/07/19 09:00 09/06/19 08:59 08/15/19 10:10 Bisacodyl (Dulcolax) 10 mg DAILYPRN PRN RECTAL Constipation 08/12/19 19:00 09/11/19 18:59 08/14/19 05:01 Clonidine HCl (Catapres Tab) 0.1 mg Q6H PRN ORAL PRN SBP>160 08/07/19 09:00 09/06/19 08:44 Dextrose (Dextrose 50%) 25 ml Q30M PRN IV Hypoglycemia 08/07/19 08:30 09/06/19 08:29 Dextrose (Dextrose 50%) 50 ml Q30M PRN IV Hypoglycemia 08/07/19 08:30 09/06/19 08:29 Docusate Sodium (Colace) 100 mg TWICE A DAY NG 08/14/19 11:00 09/13/19 10:59 08/15/19 10:11 Ferrous Sulfate (Feosol) 325 mg DAILY ORAL 08/07/19 09:00 09/06/19 08:59 08/15/19 10:10 Heparin Sodium (Porcine) (Heparin 5000 units/ml) 5,000 units EVERY 12 HOURS SUBQ 08/07/19 10:15 09/06/19 10:14 08/15/19 10:12 Hydralazine HCl (Apresoline) 20 mg DAILY ORAL 08/07/19 09:00 09/06/19 08:59 08/15/19 10:10 Insulin Aspart (NovoLOG) EVERY 6 HOURS SUBQ 08/10/19 18:00 08/23/19 17:59 08/15/19 05:34 Insulin Detemir (Levemir) 6 units Q24H SUBQ 08/07/19 09:00 09/06/19 08:59 08/15/19 10:10 Latoya Saini M.D. Aug 15, 2019 12:00
--- NOTE | 2019-08-15 13:54 | Pulmonology Progress Note ---
Assessment/Plan Problems: (1) Bacteremia (2) UTI (urinary tract infection) (3) Advanced dementia (4) DM (diabetes mellitus) (5) HTN (hypertension) Assessment/Plan no new complains looks comfortable NG tube is in dvt prophylaxis I talked to one of the nieces, Emmanuelle, ( [phone] explained to her my recommendation about comfort care and comfort feeding. family agreed with hospice care. will dc once all the papers are signed. Subjective ROS Limited/Unobtainable: Yes Constitutional: Reports: no symptoms Allergies: Coded Allergies: No Known Allergies (Unverified , 04/03/13) Objective Last 24 Hour Vital Signs Date Time Temp Pulse Resp B/P (MAP) Pulse Ox O2 Delivery O2 Flow Rate FiO2 08/15/19 12:00 98.6 104 20 138/86 (103) 99 08/15/19 10:11 104 135/84 08/15/19 10:10 135/84 08/15/19 09:00 Nasal Cannula 3.0 08/15/19 08:00 97.8 102 18 135/84 (101) 100 08/15/19 04:00 99.1 72 18 144/72 (96) 100 08/15/19 00:00 99.0 104 20 142/81 (101) 100 08/14/19 21:00 Nasal Cannula 3.0 08/14/19 20:00 99.7 118 20 158/85 (109) 97 08/14/19 16:00 99.0 100 19 150/70 (96) 100 Intake and Output 08/14/19 08/15/19 19:00 07:00 Intake Total 540 ml 885 ml Output Total 450 ml Balance 90 ml 885 ml Intake Free Water 300 ml Tube Feeding 540 ml 585 ml Output Urine Total 450 ml # Bowel Movements 3 1 Objective General Appearance: WD/WN, no apparent distress Lines, tubes and drains: peripheral, central line HEENT: normocephalic, atraumatic Neck: non-tender, normal alignment Respiratory/Chest: lungs clear Breasts: no masses Cardiovascular/Chest: normal peripheral pulses Abdomen: normal bowel sounds, soft Genitourinary/Rectal: normal genital exam Extremities: normal range of motion Laboratory Tests 08/14/19 21:00: Stool Occult Blood [Pending] 08/15/19 06:14: White Blood Count 11.8H, Red Blood Count 4.49, Hemoglobin 11.7L, Hematocrit 37.2 , Mean Corpuscular Volume 83, Mean Corpuscular Hemoglobin 26.1L, Mean Corpuscular Hemoglobin Concent 31.6L, Red Cell Distribution Width 14.3, Platelet Count 341, Mean Platelet Volume 5.1L, Neutrophils (%) (Auto) 69.8, Lymphocytes (%) (Auto) 20.0, Monocytes (%) (Auto) 8.0, Eosinophils (%) (Auto) 1.8, Basophils (%) (Auto) 0.4, Sodium Level 141, Potassium Level 4.2, Chloride Level 102, Carbon Dioxide Level 34H, Anion Gap 5, Blood Urea Nitrogen 33H, Creatinine 1.1, Estimat Glomerular Filtration Rate , Glucose Level 271H, Calcium Level 9.8 Current Medications Medications (Trade) Dose Ordered Sig/Samaria Route PRN Reason Start Time Stop Time Status Last Admin Dose Admin Acetaminophen (Tylenol) 650 mg Q6H PRN ORAL For Pain 08/07/19 06:30 09/06/19 06:29 08/14/19 22:37 Amlodipine Besylate (Norvasc) 10 mg DAILY ORAL 08/07/19 09:00 09/06/19 08:59 08/15/19 10:11 Aspirin (Ecotrin) 81 mg DAILY ORAL 08/07/19 09:00 09/06/19 08:59 08/15/19 10:10 Bisacodyl (Dulcolax) 10 mg DAILYPRN PRN RECTAL Constipation 08/12/19 19:00 09/11/19 18:59 08/14/19 05:01 Clonidine HCl (Catapres Tab) 0.1 mg Q6H PRN ORAL PRN SBP>160 08/07/19 09:00 09/06/19 08:44 Dextrose (Dextrose 50%) 25 ml Q30M PRN IV Hypoglycemia 08/07/19 08:30 09/06/19 08:29 Dextrose (Dextrose 50%) 50 ml Q30M PRN IV Hypoglycemia 08/07/19 08:30 09/06/19 08:29 Docusate Sodium (Colace) 100 mg TWICE A DAY NG 08/14/19 11:00 09/13/19 10:59 08/15/19 10:11 Ferrous Sulfate (Feosol) 325 mg DAILY ORAL 08/07/19 09:00 09/06/19 08:59 08/15/19 10:10 Heparin Sodium (Porcine) (Heparin 5000 units/ml) 5,000 units EVERY 12 HOURS SUBQ 08/07/19 10:15 09/06/19 10:14 08/15/19 10:12 Hydralazine HCl (Apresoline) 20 mg DAILY ORAL 08/07/19 09:00 09/06/19 08:59 08/15/19 10:10 Insulin Aspart (NovoLOG) EVERY 6 HOURS SUBQ 08/10/19 18:00 08/23/19 17:59 08/15/19 12:04 Insulin Detemir (Levemir) 6 units Q24H SUBQ 08/07/19 09:00 09/06/19 08:59 08/15/19 10:10 Selin Carias MD Aug 15, 2019 13:53
--- NOTE | 2019-08-15 14:24 | NUR ---
DISCHARGE SWALLOW/SPEECH SUMMARY: SEEN FOR DYSPHAGIA, SEE SWALLOW EVAL REPORT. SHE IS NPO AND HAS A NGT. PER RN, THE PATIENT IS NOW ON HOSPICE. PLAN: D/C FROM [facility]
[2019-08-15 16:00] VITALS: BP 116/83
--- NOTE | 2019-08-15 19:15 | NUR ---
NURSE NOTES: Received pt from [facility] Sweeney. Pt awake to name but AAO x 0 and non-verbal. NC 3L. NG tube intact, running Glucerna 1.5 @ 45cc. Shaver intact and running yellow urine well. No IV access noted. Will insert new IV. Pt has bilateral soft wrist restraints and skin under the restraints intact. HOB elevated. No acute distress noted. Bed locked, lowest position, alarm on, side rails up, call light within reach. Will continue to monitor.
--- NOTE | 2019-08-15 19:25 | Internal Med Progress Note ---
Subjective Date of Service: Aug 15, 2019 Physician Name Pizano,Caesar Attending Physician Selin Carias MD Current Medications Medications (Trade) Dose Ordered Sig/Samaria Route PRN Reason Start Time Stop Time Status Last Admin Dose Admin Acetaminophen (Tylenol) 650 mg Q6H PRN ORAL For Pain 08/07/19 06:30 09/06/19 06:29 08/14/19 22:37 Amlodipine Besylate (Norvasc) 10 mg DAILY ORAL 08/07/19 09:00 09/06/19 08:59 08/15/19 10:11 Aspirin (Ecotrin) 81 mg DAILY ORAL 08/07/19 09:00 09/06/19 08:59 08/15/19 10:10 Bisacodyl (Dulcolax) 10 mg DAILYPRN PRN RECTAL Constipation 08/12/19 19:00 09/11/19 18:59 08/14/19 05:01 Clonidine HCl (Catapres Tab) 0.1 mg Q6H PRN ORAL PRN SBP>160 08/07/19 09:00 09/06/19 08:44 Dextrose (Dextrose 50%) 25 ml Q30M PRN IV Hypoglycemia 08/07/19 08:30 09/06/19 08:29 Dextrose (Dextrose 50%) 50 ml Q30M PRN IV Hypoglycemia 08/07/19 08:30 09/06/19 08:29 Docusate Sodium (Colace) 100 mg TWICE A DAY NG 08/14/19 11:00 09/13/19 10:59 08/15/19 18:42 Ferrous Sulfate (Feosol) 325 mg DAILY ORAL 08/07/19 09:00 09/06/19 08:59 08/15/19 10:10 Heparin Sodium (Porcine) (Heparin 5000 units/ml) 5,000 units EVERY 12 HOURS SUBQ 08/07/19 10:15 09/06/19 10:14 08/15/19 10:12 Hydralazine HCl (Apresoline) 20 mg DAILY ORAL 08/07/19 09:00 09/06/19 08:59 08/15/19 10:10 Insulin Aspart (NovoLOG) EVERY 6 HOURS SUBQ 08/10/19 18:00 08/23/19 17:59 08/15/19 18:43 Insulin Detemir (Levemir) 6 units Q24H SUBQ 08/07/19 09:00 09/06/19 08:59 08/15/19 10:10 Allergies: Coded Allergies: No Known Allergies (Unverified , 04/03/13) ROS Limited/Unobtainable: Yes Subjective 89 YO F admitted with cough. Now UTI and sepsis. Cover for Int Boris-DR De Paz Objective Last Vital Signs Date Time Temp Pulse Resp B/P (MAP) Pulse Ox O2 Delivery O2 Flow Rate FiO2 08/15/19 16:00 99.0 104 20 116/83 (94) 99 08/15/19 09:00 Nasal Cannula 3.0 08/13/19 19:30 32 Laboratory Tests Test 08/14/19 21:00 08/15/19 06:14 Stool Occult Blood Negative (NEGATIVE) White Blood Count 11.8 K/UL (4.8-10.8) H Red Blood Count 4.49 M/UL (4.20-5.40) Hemoglobin 11.7 G/DL (12.0-16.0) L Hematocrit 37.2 % (37.0-47.0) Mean Corpuscular Volume 83 FL (80-99) Mean Corpuscular Hemoglobin 26.1 PG (27.0-31.0) L Mean Corpuscular Hemoglobin Concent 31.6 G/DL (32.0-36.0) L Red Cell Distribution Width 14.3 % (11.6-14.8) Platelet Count 341 K/UL (150-450) Mean Platelet Volume 5.1 FL (6.5-10.1) L Neutrophils (%) (Auto) 69.8 % (45.0-75.0) Lymphocytes (%) (Auto) 20.0 % (20.0-45.0) Monocytes (%) (Auto) 8.0 % (1.0-10.0) Eosinophils (%) (Auto) 1.8 % (0.0-3.0) Basophils (%) (Auto) 0.4 % (0.0-2.0) Sodium Level 141 MMOL/L (136-145) Potassium Level 4.2 MMOL/L (3.5-5.1) Chloride Level 102 MMOL/L (98-107) Carbon Dioxide Level 34 MMOL/L (21-32) H Anion Gap 5 mmol/L (5-15) Blood Urea Nitrogen 33 mg/dL (7-18) H Creatinine 1.1 MG/DL (0.55-1.30) Estimat Glomerular Filtration Rate mL/min (>60) Glucose Level 271 MG/DL (74-106) H Calcium Level 9.8 MG/DL (8.5-10.1) Intake and Output 08/14/19 08/15/19 19:00 07:00 Intake Total 540 ml 885 ml Output Total 450 ml Balance 90 ml 885 ml Intake Free Water 300 ml Tube Feeding 540 ml 585 ml Output Urine Total 450 ml # Bowel Movements 3 1 Objective PHYSICAL EXAMINATION: GENERAL: The patient is awake, responsive, no acute distress. HEENT: NG tube in the nose. NECK: Supple. No JVD. LUNGS: Good air entry. No wheezing or rales. Decreased air in bases. HEART: S1, S2. Distant heart sounds. No murmurs or gallops. ABDOMEN: Soft, nondistended, nontender. Morbidly obese. EXTREMITIES: No cyanosis, clubbing, or edema. NEUROLOGIC: Limited secondary to the patient's status. The patient is moving upper extremities spontaneously. Lower extremities, limited range of motion. RECTAL: Refused and deferred. GENITOURINARY: Refused and deferred. PSYCHIATRIC: Mood and affect unable to obtain secondary to the patient's status. Assessment/Plan Assessment/Plan ASSESSMENT: 1. Sepsis=Staph Capitus, UTI=Strep Grp B. 2. Morbid obesity. 3. Dysphagia, status post NG tube feeding. 4. Advanced dementia. 5. Diabetes type 2. 6. Hypertension. 7. Prior history of CVA. 8. CHF. PLAN: 1. Admit the patient to telemetry. 2. antibiotic=Rocephin. We will 3. Codestatus at this time is Full Code. 4. Pulmonary consultation= Dr. Selin Carias 5. ID consultation = Dr. Sina Artis. 6. Discharge planning: [facility] Caesar Pizano MD Aug 15, 2019 19:25
--- NOTE | 2019-08-15 19:45 | NUR ---
HAND-OFF: Report given to Charito GRAVES.
[2019-08-15 20:00] VITALS: BP 143/81
[2019-08-16] VITALS: BP 152/78
[2019-08-16 04:00] VITALS: BP 131/70
[2019-08-16] MEDS: NovoLOG Insulin Flexpen SUBQ SCH ×3 (06:01→18:28)
--- NOTE | 2019-08-16 07:18 | NUR ---
HAND-OFF: Report given to ELY Angel.
--- NOTE | 2019-08-16 07:30 | NUR ---
NURSE NOTES: Received report from ELY Mcneill. Patient nonverbal. On nasal cannula. No signs of distress or labored breathing. NG tube infusing tube feeding. Shaver intact, patent, and draining urine. HOB elevated 30 degrees. Bilateral soft wrist restraints on. IV intact, patent, and saline locked.
[2019-08-16 07:35] LABS: ANION GAP 6 mmol/L (5-15); BLOOD UREA NITROGEN 29 mg/dL (7-18); CALCIUM 9.9 MG/DL (8.5-10.1); CARBON DIOXIDE 32 MMOL/L (21-32); CHLORIDE 103 MMOL/L (98-107); POTASSIUM 4.3 MMOL/L (3.5-5.1); SODIUM 141 MMOL/L (136-145)
[2019-08-16 07:51] LABS: BASOPHILS % (AUTO) 0.9 % (0.0-2.0); HEMATOCRIT 35.4 % (37.0-47.0); HEMOGLOBIN 11.3 G/DL (12.0-16.0); LYMPHOCYTES % (AUTO) 20.5 % (20.0-45.0); MEAN CORPUSCULAR VOLUME 82 FL (80-99); MONOCYTES % (AUTO) 4.8 % (1.0-10.0); NEUTROPHILS % (AUTO) 71.8 % (45.0-75.0); PLATELET COUNT 245 K/UL (150-450); RED BLOOD COUNT 4.31 M/UL (4.20-5.40); RED CELL DISTRIBUTION WIDTH 14.6 % (11.6-14.8)
[2019-08-16 08:00] VITALS: BP 153/79
[2019-08-16] MEDS: Levemir Flexpen SUBQ SCH (09:17)
[2019-08-16] MEDS: Heparin 5000 units/ml inj SUBQ SCH ×2 (09:18→20:55)
[2019-08-16] MEDS: Aspirin EC 81mg tab ORAL SCH (09:22)
[2019-08-16] MEDS: HydrALAZINE 10mg Tab ORAL SCH (09:22)
[2019-08-16] MEDS: Docusate 100mg/10ml Liq NG SCH ×2 (09:22→18:00)
--- NOTE | 2019-08-16 11:46 | Infectious Diseases Prog Note ---
Assessment/Plan Assessment/Plan 89 yo male with PMHx of Dementia, DM, HTN, CHD and CVA/TIA who [facility] and [facility]. UTI, sp rx UA (+) Urine Cx - 10-20k GBS Afebrile Mild Leukocytosis Positive Blood Cx - Likely a contaminant Blood Cx 08/07/19 4/ S. capitis; 08/09 Bcx Neg Cough/Dyspnea -08/12 CXR: Mild interstitial prominence, nonspecific, may also have a chronic component, unchanged from previous -08/07 CXR: Limited evaluation. Query mild pulmonary vascular congestion Dementia DM HTN CVA/TIA CHF PLAN - Continue to monitor off abx -08/12 SP Ceftriaxone #3 -08/06/19 S/P Cefepime - Monitor CBC and Temps Thank you for this consult. [facility] will continue to follow the patient with you during this hospitalization. Subjective Allergies: Coded Allergies: No Known Allergies (Unverified , 04/03/13) Subjective afebrile mild leukocytosis Objective Vital Signs Last 24 Hour Vital Signs Date Time Temp Pulse Resp B/P (MAP) Pulse Ox O2 Delivery O2 Flow Rate FiO2 08/16/19 09:23 104 153/79 08/16/19 09:22 153/79 08/16/19 04:00 99.1 96 18 131/70 (90) 99 08/16/19 00:00 99.1 103 20 152/78 (102) 99 08/15/19 21:00 Nasal Cannula 3.0 08/15/19 20:00 99.4 101 20 143/81 (101) 99 08/15/19 16:00 99.0 104 20 116/83 (94) 99 08/15/19 12:00 98.6 104 20 138/86 (103) 99 Height (Feet): 5 Height (Inches): 9.00 Weight (Pounds): 201 Objective General Appearance: WD/WN, no apparent distress Lines, tubes and drains: peripheral, central line HEENT: normocephalic, atraumatic Neck: non-tender, normal alignment Respiratory/Chest: lungs clear Cardiovascular/Chest: normal peripheral pulses Abdomen: normal bowel sounds, soft Extremities: normal range of motion Laboratory Tests Test 08/16/19 06:41 White Blood Count 12.0 K/UL (4.8-10.8) H Red Blood Count 4.31 M/UL (4.20-5.40) Hemoglobin 11.3 G/DL (12.0-16.0) L Hematocrit 35.4 % (37.0-47.0) L Mean Corpuscular Volume 82 FL (80-99) Mean Corpuscular Hemoglobin 26.2 PG (27.0-31.0) L Mean Corpuscular Hemoglobin Concent 31.8 G/DL (32.0-36.0) L Red Cell Distribution Width 14.6 % (11.6-14.8) Platelet Count 245 K/UL (150-450) Mean Platelet Volume 5.4 FL (6.5-10.1) L Neutrophils (%) (Auto) 71.8 % (45.0-75.0) Lymphocytes (%) (Auto) 20.5 % (20.0-45.0) Monocytes (%) (Auto) 4.8 % (1.0-10.0) Eosinophils (%) (Auto) 2.0 % (0.0-3.0) Basophils (%) (Auto) 0.9 % (0.0-2.0) Sodium Level 141 MMOL/L (136-145) Potassium Level 4.3 MMOL/L (3.5-5.1) Chloride Level 103 MMOL/L (98-107) Carbon Dioxide Level 32 MMOL/L (21-32) Anion Gap 6 mmol/L (5-15) Blood Urea Nitrogen 29 mg/dL (7-18) H Creatinine 1.0 MG/DL (0.55-1.30) Estimat Glomerular Filtration Rate mL/min (>60) Glucose Level 269 MG/DL (74-106) H Calcium Level 9.9 MG/DL (8.5-10.1) Current Medications Medications (Trade) Dose Ordered Sig/Samaria Route PRN Reason Start Time Stop Time Status Last Admin Dose Admin Acetaminophen (Tylenol) 650 mg Q6H PRN ORAL For Pain 08/07/19 06:30 09/06/19 06:29 08/14/19 22:37 Amlodipine Besylate (Norvasc) 10 mg DAILY ORAL 08/07/19 09:00 09/06/19 08:59 08/16/19 09:23 Aspirin (Ecotrin) 81 mg DAILY ORAL 08/07/19 09:00 09/06/19 08:59 08/16/19 09:22 Bisacodyl (Dulcolax) 10 mg DAILYPRN PRN RECTAL Constipation 08/12/19 19:00 09/11/19 18:59 08/14/19 05:01 Clonidine HCl (Catapres Tab) 0.1 mg Q6H PRN ORAL PRN SBP>160 08/07/19 09:00 09/06/19 08:44 Dextrose (Dextrose 50%) 25 ml Q30M PRN IV Hypoglycemia 08/07/19 08:30 09/06/19 08:29 Dextrose (Dextrose 50%) 50 ml Q30M PRN IV Hypoglycemia 08/07/19 08:30 09/06/19 08:29 Docusate Sodium (Colace) 100 mg TWICE A DAY NG 08/14/19 11:00 09/13/19 10:59 08/16/19 09:22 Ferrous Sulfate (Feosol) 325 mg DAILY ORAL 08/07/19 09:00 09/06/19 08:59 08/16/19 09:22 Heparin Sodium (Porcine) (Heparin 5000 units/ml) 5,000 units EVERY 12 HOURS SUBQ 08/07/19 10:15 09/06/19 10:14 08/16/19 09:18 Hydralazine HCl (Apresoline) 20 mg DAILY ORAL 08/07/19 09:00 09/06/19 08:59 08/16/19 09:22 Insulin Aspart (NovoLOG) EVERY 6 HOURS SUBQ 08/10/19 18:00 08/23/19 17:59 08/16/19 06:01 Insulin Detemir (Levemir) 6 units Q24H SUBQ 08/07/19 09:00 09/06/19 08:59 08/16/19 09:17 Latoya Saini M.D. Aug 16, 2019 11:46
--- NOTE | 2019-08-16 11:50 | NUR ---
RD ASSESSMENT & RECOMMENDATIONS SEE CARE ACTIVITY FOR COMPLETE ASSESSMENT DAILY ESTIMATED NEEDS: Needs based on DM, CHF 65.8kg abw 25-30kcal/kg kcals/kg 1575-1890kcal total kcals 1-1.5g/kg g protein/kg 66-99 g total protein 20-25 mL/kg 7091-0994 total fluid mLs NUTRITION DIAGNOSIS: Swallowing difficulty R/T dysphagia, h/o CVA/TIA, dementia as evidenced by PROCESS ENGINEERING TECHNICIAN recommends NPO, s/p NGT insertion, on NGT feeding. CURRENT TF:Glucerna 1.5 @ 45ml/hr x 24 hrs PO DIET RECOMMENDATIONS: WHEN SAFE FOR ORAL DIET -> CCHO MED, LOW NA (texture per PROCESS ENGINEERING TECHNICIAN) ENTERAL NUTRITION RECOMMENDATIONS: Glucerna 1.5 @ 45ml/hr x 24 hrs to provide 1080ml, 1620kcal, 89g prot, 820ml free water * Maintain current TF: meets 100% est kcal/prot needs * HOB over 30 degrees * Without IVF, H20 flush of 150ml q 6 hrs ADDITIONAL RECOMMENDATIONS: * Calibrated bedscale wt per SNF, ii=[id number] in Jul 2019 * Monitor for oral diet initiation- on NGT feds at this time * Consider increasing long acting insulin for improved BG control POC glu ([phone] ) * Monitor lytes daily w/ TF, replete as needed * Bowel regimen-> last BM 08/06 per EMR -> now w/ bm 08/15
[2019-08-16 12:00] VITALS: BP 125/85
--- NOTE | 2019-08-16 13:01 | Pulmonology Progress Note ---
Assessment/Plan Problems: (1) Bacteremia (2) UTI (urinary tract infection) (3) Advanced dementia (4) DM (diabetes mellitus) (5) HTN (hypertension) Assessment/Plan no new complains looks comfortable NG tube is in dvt prophylaxis family agreed with hospice care. dc to [facility] with hospice Subjective ROS Limited/Unobtainable: No Constitutional: Reports: no symptoms HEENT: Repors: no symptoms Respiratory: Reports: no symptoms Allergies: Coded Allergies: No Known Allergies (Unverified , 04/03/13) Objective Last 24 Hour Vital Signs Date Time Temp Pulse Resp B/P (MAP) Pulse Ox O2 Delivery O2 Flow Rate FiO2 08/16/19 09:23 104 153/79 08/16/19 09:22 153/79 08/16/19 08:00 99.1 104 20 153/79 (103) 96 08/16/19 04:00 99.1 96 18 131/70 (90) 99 08/16/19 00:00 99.1 103 20 152/78 (102) 99 08/15/19 21:00 Nasal Cannula 3.0 08/15/19 20:00 99.4 101 20 143/81 (101) 99 08/15/19 16:00 99.0 104 20 116/83 (94) 99 Intake and Output 08/15/19 08/16/19 19:00 07:00 Intake Total 495 ml Output Total 550 ml Balance -55 ml Tube Feeding 495 ml Output Urine Total 550 ml # Voids 2 # Bowel Movements 1 Objective General Appearance: WD/WN, no apparent distress Lines, tubes and drains: peripheral, central line HEENT: normocephalic, atraumatic Neck: non-tender, normal alignment Respiratory/Chest: lungs clear Breasts: no masses Cardiovascular/Chest: normal peripheral pulses Abdomen: normal bowel sounds, soft Genitourinary/Rectal: normal genital exam Extremities: normal range of motion Laboratory Tests 08/16/19 06:41: White Blood Count 12.0H, Red Blood Count 4.31, Hemoglobin 11.3L, Hematocrit 35.4L, Mean Corpuscular Volume 82, Mean Corpuscular Hemoglobin 26.2L, Mean Corpuscular Hemoglobin Concent 31.8L, Red Cell Distribution Width 14.6, Platelet Count 245, Mean Platelet Volume 5.4L, Neutrophils (%) (Auto) 71.8, Lymphocytes (%) (Auto) 20.5, Monocytes (%) (Auto) 4.8, Eosinophils (%) (Auto) 2.0, Basophils (%) (Auto) 0.9, Sodium Level 141, Potassium Level 4.3, Chloride Level 103, Carbon Dioxide Level 32, Anion Gap 6, Blood Urea Nitrogen 29H, Creatinine 1.0, Estimat Glomerular Filtration Rate , Glucose Level 269H, Calcium Level 9.9 Current Medications Medications (Trade) Dose Ordered Sig/Samaria Route PRN Reason Start Time Stop Time Status Last Admin Dose Admin Acetaminophen (Tylenol) 650 mg Q6H PRN ORAL For Pain 08/07/19 06:30 09/06/19 06:29 08/14/19 22:37 Amlodipine Besylate (Norvasc) 10 mg DAILY ORAL 08/07/19 09:00 09/06/19 08:59 08/16/19 09:23 Aspirin (Ecotrin) 81 mg DAILY ORAL 08/07/19 09:00 09/06/19 08:59 08/16/19 09:22 Bisacodyl (Dulcolax) 10 mg DAILYPRN PRN RECTAL Constipation 08/12/19 19:00 09/11/19 18:59 08/14/19 05:01 Clonidine HCl (Catapres Tab) 0.1 mg Q6H PRN ORAL PRN SBP>160 08/07/19 09:00 09/06/19 08:44 Dextrose (Dextrose 50%) 25 ml Q30M PRN IV Hypoglycemia 08/07/19 08:30 09/06/19 08:29 Dextrose (Dextrose 50%) 50 ml Q30M PRN IV Hypoglycemia 08/07/19 08:30 09/06/19 08:29 Docusate Sodium (Colace) 100 mg TWICE A DAY NG 08/14/19 11:00 09/13/19 10:59 08/16/19 09:22 Ferrous Sulfate (Feosol) 325 mg DAILY ORAL 08/07/19 09:00 09/06/19 08:59 08/16/19 09:22 Heparin Sodium (Porcine) (Heparin 5000 units/ml) 5,000 units EVERY 12 HOURS SUBQ 08/07/19 10:15 09/06/19 10:14 08/16/19 09:18 Hydralazine HCl (Apresoline) 20 mg DAILY ORAL 08/07/19 09:00 09/06/19 08:59 08/16/19 09:22 Insulin Aspart (NovoLOG) EVERY 6 HOURS SUBQ 08/10/19 18:00 08/23/19 17:59 08/16/19 06:01 Insulin Detemir (Levemir) 6 units Q24H SUBQ 08/07/19 09:00 09/06/19 08:59 08/16/19 09:17 Selin Carias MD Aug 16, 2019 13:01
[2019-08-16] MEDS ORDERED: MORPHINE S10 MG/5 ML ORAL (13:03)
[2019-08-16 16:00] VITALS: BP 147/85
--- NOTE | 2019-08-16 16:51 | NUR ---
CASE MANAGEMENT:REVIEW 08/09/2019 SI;BACTEREMIA. UTI. 96.7 106 20 156/70 94% 3L NC GLUCOSE 219 IS;CEFEPIME IV Q24 HRS MED SURG STATUS DCP; [facility] CASE MANAGEMENT:REVIEW 08/11/2019 SI;BACTEREMIA. UTI. 97.9 102 20 156/73 96% 3L NC BUN 21 IS;CEFEPIME IV Q24 HRS MED SURG STATUS DCP; [facility] CASE MANAGEMENT:REVIEW 08/13/2019 SI;BACTEREMIA. UTI. 97.4 100 20 149/81% 3L NC HGB 11.5 HCT 36.8 BUN 22 IS;CEFEPIME IV Q24 HRS MED SURG STATUS DCP; [facility] CASE MANAGEMENT:REVIEW 08/16/2019 SI;BACTEREMIA. UTI. WBC 12.0 % 3L NC IS;CEFEPIME IV Q24 HRS MED SURG STATUS DCP; [facility]
--- NOTE | 2019-08-16 17:29 | NUR ---
CASE MANAGEMENT:NOTE PER CATARINA AT [facility], NO BEDS AVAILABLE AT THIS TIME. [facility]SP[facility] WITH [facility] ETA [id number] PM ON 08/16/2019
--- NOTE | 2019-08-16 18:09 | NUR ---
NURSE NOTES: Called Errol Rice to give report. Cia Agent, [place] said vocational rehabilitation supervisor Kelly was unable able to take call at the moment and would call back. Charge nurse aware. Addendum: 08/16/19 at 2007 by Jeanne Knox RN NURSE NOTES: Ship Liner's name is Brenda Mendoza.
[2019-08-16 20:00] VITALS: BP 151/78
--- NOTE | 2019-08-16 20:04 | NUR ---
HAND-OFF: Report given to ELY Rawls. Gave report to Brenda nursing cnc supervisor at [facility].
--- NOTE | 2019-08-16 20:09 | NUR ---
NURSE NOTES: Pt is in bed , asleep. No acute distress noted. Bilat soft wrist restraints in place; restraints sites asymptomatic. Ng-tube in place; Glucerna 1.5 running at 45ml/hr. HOB elevated. Pt will be repositioned frequently. F/C draining yellow urine. Pt has discharge order to go to [facility]. Discharge packet, discharge instruction and transfer report was given to the facility by ELY Angel during previous shift.Report was given to Brenda gomes at the facility. POA was notified. [facility] called for [facility]er tender, ETA [id number]. Fall precaution and aspiration precaution in place. Bed locked low in position,side rails up and call light within reach.
[2019-08-16] MEDS: Acetaminophen 650mg/20.3ml ORAL PRN (20:46)
--- NOTE | 2019-08-16 23:25 | Internal Med Progress Note ---
Subjective Physician Name BaldevAsad Attending Physician Selin Carias MD Current Medications Medications (Trade) Dose Ordered Sig/Samaria Route PRN Reason Start Time Stop Time Status Last Admin Dose Admin Acetaminophen (Tylenol) 650 mg Q6H PRN ORAL For Pain 08/07/19 06:30 09/06/19 06:29 08/16/19 20:46 Amlodipine Besylate (Norvasc) 10 mg DAILY ORAL 08/07/19 09:00 09/06/19 08:59 08/16/19 09:23 Aspirin (Ecotrin) 81 mg DAILY ORAL 08/07/19 09:00 09/06/19 08:59 08/16/19 09:22 Bisacodyl (Dulcolax) 10 mg DAILYPRN PRN RECTAL Constipation 08/12/19 19:00 09/11/19 18:59 08/14/19 05:01 Clonidine HCl (Catapres Tab) 0.1 mg Q6H PRN ORAL PRN SBP>160 08/07/19 09:00 09/06/19 08:44 Dextrose (Dextrose 50%) 25 ml Q30M PRN IV Hypoglycemia 08/07/19 08:30 09/06/19 08:29 Dextrose (Dextrose 50%) 50 ml Q30M PRN IV Hypoglycemia 08/07/19 08:30 09/06/19 08:29 Docusate Sodium (Colace) 100 mg TWICE A DAY NG 08/14/19 11:00 09/13/19 10:59 08/16/19 09:22 Ferrous Sulfate (Feosol) 325 mg DAILY ORAL 08/07/19 09:00 09/06/19 08:59 08/16/19 09:22 Heparin Sodium (Porcine) (Heparin 5000 units/ml) 5,000 units EVERY 12 HOURS SUBQ 08/07/19 10:15 09/06/19 10:14 08/16/19 20:55 Hydralazine HCl (Apresoline) 20 mg DAILY ORAL 08/07/19 09:00 09/06/19 08:59 08/16/19 09:22 Insulin Aspart (NovoLOG) EVERY 6 HOURS SUBQ 08/10/19 18:00 08/23/19 17:59 08/16/19 18:28 Insulin Detemir (Levemir) 6 units Q24H SUBQ 08/07/19 09:00 2/7/20 08:59 08/16/19 09:17 Allergies: Coded Allergies: No Known Allergies (Unverified , 04/03/13) Subjective Awake, responsive, open her eyes, follow-up with minimal commands. Objective Last Vital Signs Date Time Temp Pulse Resp B/P (MAP) Pulse Ox O2 Delivery O2 Flow Rate FiO2 08/16/19 20:00 98.8 102 22 151/78 (102) 97 08/16/19 09:00 Nasal Cannula 3.0 08/13/19 19:30 32 Laboratory Tests Test 08/16/19 06:41 White Blood Count 12.0 K/UL (4.8-10.8) H Red Blood Count 4.31 M/UL (4.20-5.40) Hemoglobin 11.3 G/DL (12.0-16.0) L Hematocrit 35.4 % (37.0-47.0) L Mean Corpuscular Volume 82 FL (80-99) Mean Corpuscular Hemoglobin 26.2 PG (27.0-31.0) L Mean Corpuscular Hemoglobin Concent 31.8 G/DL (32.0-36.0) L Red Cell Distribution Width 14.6 % (11.6-14.8) Platelet Count 245 K/UL (150-450) Mean Platelet Volume 5.4 FL (6.5-10.1) L Neutrophils (%) (Auto) 71.8 % (45.0-75.0) Lymphocytes (%) (Auto) 20.5 % (20.0-45.0) Monocytes (%) (Auto) 4.8 % (1.0-10.0) Eosinophils (%) (Auto) 2.0 % (0.0-3.0) Basophils (%) (Auto) 0.9 % (0.0-2.0) Sodium Level 141 MMOL/L (136-145) Potassium Level 4.3 MMOL/L (3.5-5.1) Chloride Level 103 MMOL/L (98-107) Carbon Dioxide Level 32 MMOL/L (21-32) Anion Gap 6 mmol/L (5-15) Blood Urea Nitrogen 29 mg/dL (7-18) H Creatinine 1.0 MG/DL (0.55-1.30) Estimat Glomerular Filtration Rate mL/min (>60) Glucose Level 269 MG/DL (74-106) H Calcium Level 9.9 MG/DL (8.5-10.1) Intake and Output 08/15/19 08/16/19 19:00 07:00 Intake Total 495 ml Output Total 550 ml Balance -55 ml Tube Feeding 495 ml Output Urine Total 550 ml # Voids 2 # Bowel Movements 1 Objective GENERAL: The patient is awake, responsive, no acute distress. HEENT: PERRLA, EOMI, NG tube in the nose. NECK: Supple. No JVD. LUNGS: Fair air entry. No wheezing or rales. Decreased air in bases. HEART: S1, S2. Distant heart sounds. No murmurs or gallops. ABDOMEN: Soft, nondistended, nontender. Morbidly obese. EXTREMITIES: No cyanosis, clubbing, or edema. NEUROLOGIC: Limited secondary to the patient's status. The patient is moving upper extremities spontaneously. Lower extremities, limited range of motion. RECTAL: Refused and deferred. GENITOURINARY: Refused and deferred. Assessment/Plan Assessment/Plan 1. Sepsis=Staph Capitus, UTI=Strep Grp B. 2. Morbid obesity. 3. Dysphagia, status post NG tube feeding. 4. Advanced dementia. 5. Diabetes type 2. 6. Hypertension. 7. Prior history of CVA. 8. CHF. PLAN: 1. in Medical floor. 2. antibiotic= OFF. We will 3. Code status: DNR 4. Pulmonary consultation= Dr. Selin Carias 5. ID consultation = Dr. Sina Artis. 6. Discharge planning: SNF Tolerated tube feeding at rate of 45 cc/h Asad De Paz MD Aug 16, 2019 23:25
--- NOTE | 2019-08-16 23:56 | NUR ---
NURSE NOTES: Pt discharged to [facility] via [facility]. Pt is awake, vitals stable. No acute distress noted. Shaver cath in place, NG-tube in place. IV cath removed. Report was given to ELY Gutierrez at the [facility] earlier during the shift. Transfer report, discharge packet and pt's belongings sent with patient.
--- NOTE | 2019-08-18 20:30 | Discharge Summary ---
Discharge Summary Discharge Summary _ DATE OF ADMISSION: 08/06/2019 DATE OF DISCHARGE: 08/16/2019 DISCHARGED BY: Dr. Selin Carias CONSULTANTS: Dr. Asad Saini HISTORY OF PRESENT ILLNESS: This is a 89-year-old female with past medical history significant for dementia, diabetes type 2, hypertension, congestive heart failure, chronic heart disease, CVA, and TIA who presented to the emergency room from nursing facility after was noted to have a cough and chest congestion. The patient was noted feeling well prior to that and was noted to have elevated WBC in the emergency department with abnormal urinary tract and subsequently the patient was admitted to the hospital with sepsis, possibly due to acute UTI as well as upper respiratory symptoms, possible viral versus bacterial bronchitis. BRIEF HOSPITAL COURSE: She was admitted to telemetry. She was continued on home medications. Blood glucose was monitored. She was given NovoLog insulin sliding scale. She was continued on Levemir. She was started on ceftriaxone by ID. Urine culture with group B strep. Blood culture showed growth of Staphylococcus capitis. Patient was confused. NGT was inserted. She was started on tube feeding. Strict aspiration precaution. Repeat blood culture did not isolate any growth. Positive blood culture was likely a contaminant. She was monitored off antibiotics. Family meeting was done. Patient has advanced dementia and history of breast cancer. Patient was recommended comfort care and comfort feeding. Patient agreed with hospice care. Patient was eventually discharged to SNF with hospice. FINAL DIAGNOSES: Sepsis Urinary tract infection Bacteremia, possible contaminant Dysphagia, status post NG tube feeding Morbid obesity Advanced dementia Diabetes mellitus Hypertension Old CVA Hypertension CHF DISPOSITION: DC to SNF with hospice DISCHARGE MEDICATIONS: Refer to Discharge Medication List. I have been assigned to complete a discharge summary on this account, I was not involved with the patient's management.--WINIFRED Rubio Jacqueline Robles NP Aug 18, 2019 20:30
== END 2019-08-16 23:53 | DRG 872 ==
LOC: EDBD 15:26 → EMR 16:07 → EDBEDREQ 16:18 → 2E 16:36 → EDBEDREQ 21:11 → 2E 08-07 20:36 → 4E 08-11 21:34
DX: A41.1 Sepsis due to other specified staphylococcus (principal); N39.0 Urinary tract infection, site not specified; B95.1 Streptococcus, group B, as the cause of diseases classified elsewhere; R06.03 Acute respiratory distress; I10 Essential (primary) hypertension; E66.01 Morbid (severe) obesity due to excess calories; R13.10 Dysphagia, unspecified; F03.90 Unspecified dementia, unspecified severity, without behavioral disturbance, psychotic disturbance, mood disturbance, and anxiety; Z86.73 Personal history of transient ischemic attack (TIA), and cerebral infarction without residual deficits; E11.9 Type 2 diabetes mellitus without complications; I11.0 Hypertensive heart disease with heart failure; I50.9 Heart failure, unspecified; Z66 Do not resuscitate; Z68.34 Body mass index [BMI] 34.0-34.9, adult
CPT/HCPCS: 36415; 36600; 71045; 74018; 80048; 80053; 81003; 82270; 82378; 82550; 82553; 82607; 82746; 82803; 82962; 83540; 83550; 83605; 83615; 83690; 83735; 83880; 84100; 84484; 85007; 85025; 85044; 85060; 85610; 85651; 85730; 86140; 86710; 87040; 87081; 87086; 87181; 93005; 96365; 96366; 96368; 99285; J1815; J7030; S5561